=== PATIENT | female | born 1990 | race Caucasian/White ===

== ENCOUNTER → 2016-12-25 | Outpatient (CLI) | payer OTHER ==
--- NOTE | 2016-12-25 15:51 | XR ---
EXAMINATION TYPE: XR lumbosacral spine min 4V DATE OF EXAM: 12/25/2016 COMPARISON: 12/02/2011 HISTORY: 26-year-old female with low back pain TECHNIQUE: 5 views FINDINGS: 5 lumbar type vertebral bodies. No pars interarticularis defect. Vertebral body heights are preserved and alignment is maintained. Disc spaces are also relatively maintained IMPRESSION: No vertebral compression collapse or malalignment.
== END | disposition home or self-care (01) ==
LOC: RADXRMAIN 15:22
PROVIDERS: ATTEND Internal Medicine
DX: M54.5 Low back pain (principal)
CPT/HCPCS: 72110

== ENCOUNTER 2017-01-16 18:39 | Emergency (ER) | payer OTHER ==
[2017-01-16 18:47] VITALS: BP 120/61; PULSE 94; RESP 18; TEMP 97.6
[2017-01-16] MEDS ORDERED: KETOROLAC 60 MG/2 ML VIAL IM STA (18:58)
--- NOTE | 2017-01-16 19:01 | ED ---
General Adult HPI - General Chief complaint: Back Pain/Injury Stated complaint: BACK AND RT KNEE PAIN Time Seen by Provider: 01/16/17 18:48 Source: patient, RN notes reviewed Mode of arrival: ambulatory Limitations: no limitations - History of Present Illness Initial comments: Patient 26-year-old female who presents emergency room today with chief complaint of knee pain 2 days. She has been to chronic low back pain as well. States does radiate down onto the right leg. She states the pain is new started just 2 days ago. Denies any injury or trauma. States it is worse with certain movements. Patient denies any bowel or bladder incontinence retention. Denies any saddle anesthesia. Patient denies any other complaints associated symptoms. Patient denies any recent fever, chills, shortness of breath, chest pain, abdominal pain, nausea or vomiting, numbness or tingling, dysuria or hematuria, constipation or diarrhea, headaches or visual changes, or any other complaints. - Related Data Home Medications Medication Instructions Recorded Confirmed Mus-Oyeb-Dunaq Acid 1 tab PO DAILY 04/28/16 05/20/16 [-U Capsule (formulary)] Previous Rx's Medication Instructions Recorded Acetaminophen-Codeine 300-30mg 2 tab PO Q6H PRN #30 tablet 05/22/16 [Tylenol #3] Ibuprofen [Motrin] 600 mg PO Q6HR PRN #30 tab 05/22/16 Ibuprofen [Motrin] 600 mg PO Q6HR PRN #30 day 01/16/17 Allergies Allergy/AdvReac Type Severity Reaction Status Date / Time pollen extracts Allergy Unknown Verified 01/16/17 18:47 tomato Allergy Unknown Verified 01/16/17 18:47 venom-honey bee Allergy Unknown Verified 01/16/17 18:47 [bee venom (honey bee)] Review of Systems ROS Statement: Those systems with pertinent positive or pertinent negative responses have been documented in the HPI. ROS Other: All systems not noted in ROS Statement are negative. Past Medical History Past Medical History: No Reported History Additional Past Medical History / Comment(s): ovarian cyst, back pain History of Any Multi-Drug Resistant Organisms: None Reported Past Surgical History: Section Additional Past Surgical History / Comment(s): cysyts removed from ovaries Past Anesthesia/Blood Transfusion Reactions: No Reported Reaction Past Psychological History: Anxiety, Bipolar Smoking Status: Current every day smoker Past Alcohol Use History: None Reported Past Drug Use History: Marijuana - Past Family History Mother Family Medical History: No Reported History Additional Family Medical History / Comment(s): no hx of family medical problems General Exam - General Exam Comments Initial Comments: General: The patient is awake and alert, in no distress, and does not appear acutely ill. Eye: Pupils are equal, round and reactive to light, extra-ocular movements are intact. No nystagmus. There is normal conjunctiva bilaterally. No signs of icterus. Ears, nose, mouth and throat: There are moist mucous membranes and no oral lesions. Neck: The neck is supple, there is no tenderness or JVD. Cardiovascular: There is a regular rate and rhythm. No murmur, rub or gallop is appreciated. Respiratory: Lungs are clear to auscultation, respirations are non-labored, breath sounds are equal. No wheezes, stridor, rales, or rhonchi. Gastrointestinal: Soft, non-distended, non-tender abdomen without masses or organomegaly noted. There is no rebound or guarding present. No CVA tenderness. Bowel sounds are unremarkable. Musculoskeletal: Normal appearance of the right knee no obvious deformity. Shows good range of motion. No bony tenderness on exam OF the thoracic or lumbar spine no step-offs deformities or tenderness in the midline. Strength 5/ 5. Sensation intact. Pulses equal bilaterally 2+. Neurological: A&O x 3. CN II-XII intact, There are no obvious motor or sensory deficits. Coordination appears grossly intact. Speech is normal. Skin: Skin is warm and dry and no rashes or lesions are noted. Psychiatric: Cooperative, appropriate mood & affect, normal judgment. Limitations: no limitations Course Vital Signs 01/16/17 18:44 Temperature 97.6 F Pulse Rate 94 Respiratory 18 Rate Blood Pressure 120/61 O2 Sat by Pulse 100 Oximetry Medical Decision Making - Medical Decision Making Patient given Toradol shot here the emergency room advised to use anti- inflammatories for pain. Advised follow-up family doctor further evaluation Disposition Clinical Impression: Strain of knee and leg, right Disposition: HOME SELF-CARE Condition: Good Instructions: Chronic Back Pain (ED) Additional Instructions: Please use medication as discussed. Please follow-up with family doctor in the next 2 days of symptoms have not improved. Please return to emergency room if the symptoms increase or worsen or for any other concerns. Prescriptions: Ibuprofen [Motrin] 600 mg PO Q6HR PRN #30 day PRN Reason: Pain Referrals: Jaison Shah MD [Primary Care Provider] - 1-2 days Time of Disposition: 19:00
== END 2017-01-16 19:10 | disposition home or self-care (01) ==
LOC: EC 18:39
DX: S76.911A Strain of unspecified muscles, fascia and tendons at thigh level, right thigh, initial encounter (principal); F17.200 Nicotine dependence, unspecified, uncomplicated; Z79.899 Other long term (current) drug therapy; Z91.030 Bee allergy status; Z91.018 Allergy to other foods; Z91.048 Other nonmedicinal substance allergy status
CPT/HCPCS: 99283; 96372; J1885

== ENCOUNTER → 2017-02-24 | Outpatient (CLI) | payer OTHER ==
--- NOTE | 2017-02-24 12:38 | MR ---
EXAMINATION TYPE: MR lumbar spine wo con DATE OF EXAM: 02/24/2017 COMPARISON: Lumbar spine x-ray December 25, 2016. CT abdomen and pelvis July 01, 2013. HISTORY: Low back pain per order. Back pain for 7+ years per patient. Pain in legs and arms per patie nt. TECHNIQUE: Multiplanar, multisequence imaging of the lumbar spine is performed without IV contrast. FINDINGS: Sagittal images of the lumbar spine show vertebral body heights and alignment to appear sat isfactory. There is disc desiccation L3-L4 and L5-S1 levels. There is mild disc space narrowing poste riorly with posterior disc herniation L5-S1 level on sagittal images. The conus medullaris is normal in position and signal ending at inferior L1 level. The bone marrow signal intensity is within patsy l limits. No significant spurring is seen. Axial images show the T12-L1, L1-L2, and L2-L3 level to appear within normal limits. Axial images at L3-L4 and L4-L5 level show mild broad disc bulges but spinal canal is preserved and b ilateral neural foramina are patent. Axial images at L5-S1 level show broad-based left paracentral disc protrusion minimally effacing ante rior thecal sac on axial image 3 there is some encroachment on the central left S1 nerve felt present seen best on sagittal image 5 and axial image 3. Bilateral neural foramina are patent. No suspicious retroperitoneal findings are seen. IMPRESSION: Some multilevel degenerative changes in the mid to lower lumbar spine as detailed above. Most prominent findings are L5-S1 level where concentric disc herniation minimally effaces anterior t hecal sac and encroaches on Central left S1 nerve, patient however does not complain of radiculopathy type symptoms focally at this level per MRI questionnaire. Correlate clinically.
== END | disposition home or self-care (01) ==
LOC: RADMRIMAIN 11:27
PROVIDERS: ATTEND Internal Medicine
DX: M51.27 Other intervertebral disc displacement, lumbosacral region (principal); M47.816 Spondylosis without myelopathy or radiculopathy, lumbar region
CPT/HCPCS: 72148

== ENCOUNTER 2017-07-21 14:40 | Emergency (ER) | payer OTHER ==
[2017-07-21 14:47] VITALS: BP 137/70; PULSE 88; RESP 17; TEMP 97.1
--- NOTE | 2017-07-21 15:09 | ED ---
Eye Problem HPI - General Chief complaint: Eye Problems Stated complaint: eye pain Time Seen by Provider: 07/21/17 14:52 Source: patient Mode of arrival: ambulatory Limitations: no limitations - History of Present Illness Initial comments: 27-year-old female patient presents to the emergency department today with complaints of swelling and pain over her eyebrows. Patient states that this started 3-4 days ago. States that she was seen at urgent care and given a prescription for Keflex. Patient states that her symptoms are not improving. States that it started in the left eyebrow and is now moving over to the right. Patient denies any eye drainage, eye redness, or eye irritation. She denies any headache, dizziness, weakness, blurred vision, or double vision. States that the area is tender to the touch. States she has been taking Tylenol and Excedrin without pain relief. She denies any fever, chills, or rash with this. Patient denies any recent shortness breath, chest pain, abdominal pain, nausea, vomiting, diarrhea, constipation, back pain, numbness, tingling, dizziness, weakness, hematuria, dysuria, urinary urgency, urinary frequency, or any other complaints. - Related Data Home Medications Medication Instructions Recorded Confirmed Cnb-Yhoz-Qqvkv Acid 1 tab PO DAILY 04/28/16 05/20/16 [-U Capsule (formulary)] Previous Rx's Medication Instructions Recorded Acetaminophen-Codeine 300-30mg 2 tab PO Q6H PRN #30 tablet 05/22/16 [Tylenol #3] Ibuprofen [Motrin] 600 mg PO Q6HR PRN #30 tab 05/22/16 Ibuprofen [Motrin] 600 mg PO Q6HR PRN #30 day 01/16/17 Allergies Allergy/AdvReac Type Severity Reaction Status Date / Time pollen extracts Allergy Unknown Verified 07/21/17 14:44 tomato Allergy Unknown Verified 07/21/17 14:44 venom-honey bee Allergy Unknown Verified 07/21/17 14:44 [bee venom (honey bee)] Review of Systems ROS Statement: Those systems with pertinent positive or pertinent negative responses have been documented in the HPI. ROS Other: All systems not noted in ROS Statement are negative. Past Medical History Past Medical History: No Reported History Additional Past Medical History / Comment(s): ovarian cyst, back pain History of Any Multi-Drug Resistant Organisms: None Reported Past Surgical History: Section Additional Past Surgical History / Comment(s): cysyts removed from ovaries Past Anesthesia/Blood Transfusion Reactions: No Reported Reaction Past Psychological History: Anxiety, Bipolar Smoking Status: Current every day smoker Past Alcohol Use History: None Reported Past Drug Use History: Marijuana - Past Family History Mother Family Medical History: No Reported History Additional Family Medical History / Comment(s): no hx of family medical problems General Exam Limitations: no limitations General appearance: alert, in no apparent distress, other (This is a well- developed, well-nourished adult female patient in no acute distress. Vital signs upon presentation are temperature 97.1F, pulse 88, respirations 17, blood pressure 137/70, pulse ox 98% on room air.) Eye exam: Present: normal appearance, PERRL, EOMI, other (Tenderness over the left eyebrow, over the glabella, and the right eyebrow. No evidence of swelling , erythema, or rash. Globes are intact, no drainage, no injection, PERRLA.). Absent: scleral icterus, conjunctival injection, periorbital swelling ENT exam: Present: normal exam, normal oropharynx, mucous membranes moist Respiratory exam: Present: normal lung sounds bilaterally. Absent: respiratory distress, wheezes, rales, rhonchi, stridor Cardiovascular Exam: Present: regular rate, normal rhythm, normal heart sounds. Absent: systolic murmur, diastolic murmur, rubs, gallop, clicks Neurological exam: Present: alert, oriented X3, CN II-XII intact Psychiatric exam: Present: normal affect, normal mood Skin exam: Present: warm, dry, intact, normal color. Absent: rash Course Vital Signs 07/21/17 14:44 Temperature 97.1 F L Pulse Rate 88 Respiratory 17 Rate Blood Pressure 137/70 O2 Sat by Pulse 98 Oximetry Medical Decision Making - Medical Decision Making 27-year-old female patient presented to the emergency department today for evaluation of pain to her bilateral eyebrows and glabella. Physical exam is unremarkable. Patient does not have any evidence of erythema, swelling, or rash over the area. She is not febrile. She is neurologically intact with no headache and no visual disturbance. At this time patient will be discharged home to follow-up with her primary care physician to continue taking her Keflex. I did recommend she follow up with ENT. She is instructed to take Tylenol Motrin for pain control. She is instructed to return here immediately for any new, worsening, or concerning symptoms. She verbalizes understanding. Disposition Clinical Impression: Atypical facial pain Disposition: HOME SELF-CARE Condition: Good Instructions: Atypical Facial Pain (ED) Additional Instructions: Continue taking Tylenol and ibuprofen for pain control. Apply warm compresses to the painful area. Continue your antibiotics. Follow-up with [facility] throat specialty for further evaluation. Return here immediately for any new, worsening, or concerning symptoms. Referrals: Jaison Shah MD [Primary Care Provider] - 1-2 days Darrell Peters DO [Doctor of Osteopathic Medicine] - 1-2 days Time of Disposition: 15:09
== END 2017-07-21 15:17 | disposition home or self-care (01) ==
LOC: EC 14:40
DX: G50.1 Atypical facial pain (principal); F17.200 Nicotine dependence, unspecified, uncomplicated; Z91.030 Bee allergy status; Z91.018 Allergy to other foods; Z91.048 Other nonmedicinal substance allergy status
CPT/HCPCS: 99283

== ENCOUNTER 2018-05-15 22:18 | Emergency (ER) | payer OTHER ==
[2018-05-16] MEDS ORDERED: methylPREDNISolone SOD SUCCI 125 MG/2 ML VIAL IM ONE (00:31)
[2018-05-16] MEDS ORDERED: IPRATROPIUM-ALBUTEROL 3 ML NEB INHALATION STA (00:31)
--- NOTE | 2018-05-16 00:34 | XR ---
EXAMINATION TYPE: XR chest 2V DATE OF EXAM: 05/16/2018 COMPARISON: July 25, 2013 HISTORY: Pain TECHNIQUE: Frontal and lateral views of the chest are obtained. FINDINGS: Heart and mediastinum are normal. Lungs are clear. Diaphragm is normal. Bony thorax appear s normal. IMPRESSION: Normal chest. No change.
--- NOTE | 2018-05-16 01:13 | ED ---
General Adult HPI - General Chief complaint: Upper Respiratory Infection Stated complaint: STEWART Time Seen by Provider: 05/15/18 23:55 Source: patient, RN notes reviewed Mode of arrival: ambulatory Limitations: no limitations - History of Present Illness Initial comments: 28-year-old female presents to the emergency department for a chief complaint of cough and wheezing times one day. Patient states this started yesterday when she developed a mild cough. Patient states she has a history of asthma. Patient does not have a nebulizer at home at this time. She has not been on any steroids. She does admit to mild shortness of breath. She denies any significant chest pain but does state it is somewhat painful when she coughs. She denies any fevers or chills.Patient has no other complaints at this time including chest pain, abdominal pain, nausea or vomiting, headache, or visual changes. - Related Data Home Medications Medication Instructions Recorded Confirmed Multivitamins, Thera [Multivitamin 1 tab PO DAILY 05/15/18 05/15/18 (formulary)] Previous Rx's Medication Instructions Recorded Albuterol Inhaler [Ventolin Hfa 1 - 2 puff INHALATION Q6HR PRN #1 05/16/18 Inhaler] inhaler predniSONE 50 mg PO DAILY #5 tablet 05/16/18 Allergies Allergy/AdvReac Type Severity Reaction Status Date / Time pollen extracts Allergy Unknown Verified 05/15/18 22:48 tomato Allergy Unknown Verified 05/15/18 22:48 venom-honey bee Allergy Unknown Verified 05/15/18 22:48 [bee venom (honey bee)] Review of Systems ROS Statement: Those systems with pertinent positive or pertinent negative responses have been documented in the HPI. ROS Other: All systems not noted in ROS Statement are negative. Past Medical History Past Medical History: No Reported History Additional Past Medical History / Comment(s): ovarian cyst, back pain History of Any Multi-Drug Resistant Organisms: None Reported Past Surgical History: Section Additional Past Surgical History / Comment(s): cysyts removed from ovaries Past Anesthesia/Blood Transfusion Reactions: No Reported Reaction Past Psychological History: Anxiety, Bipolar Smoking Status: Current every day smoker Past Alcohol Use History: None Reported Past Drug Use History: Marijuana - Past Family History Mother Family Medical History: No Reported History Additional Family Medical History / Comment(s): no hx of family medical problems General Exam Limitations: no limitations General appearance: alert, in no apparent distress Head exam: Present: atraumatic, normocephalic, normal inspection Eye exam: Present: normal appearance, PERRL, EOMI. Absent: scleral icterus, conjunctival injection, periorbital swelling ENT exam: Present: normal exam, normal oropharynx, mucous membranes moist, TM's normal bilaterally, normal external ear exam Neck exam: Present: normal inspection, full ROM. Absent: tenderness, meningismus, lymphadenopathy Respiratory exam: Present: wheezes (Significant wheezing noted in all lung sheridan). Absent: respiratory distress, rales, rhonchi, stridor Cardiovascular Exam: Present: regular rate, normal rhythm, normal heart sounds. Absent: systolic murmur, diastolic murmur, rubs, gallop, clicks GI/Abdominal exam: Present: soft, normal bowel sounds. Absent: distended, tenderness, guarding, rebound, rigid Neurological exam: Present: alert, oriented X3, CN II-XII intact Psychiatric exam: Present: normal affect, normal mood Course Vital Signs 05/15/18 05/15/18 05/16/18 22:20 23:15 00:00 Temperature 98.4 F 98.6 F Pulse Rate 99 92 90 Respiratory 20 22 22 Rate Blood Pressure 117/71 110/57 110/57 O2 Sat by Pulse 98 96 94 L Oximetry 05/16/18 05/16/18 05/16/18 01:00 01:09 01:26 Temperature Pulse Rate 82 92 96 Respiratory 20 Rate Blood Pressure 115/65 O2 Sat by Pulse 96 Oximetry Medical Decision Making - Medical Decision Making 28-year-old female with a past medical history of asthma presents for chief complaint of cough and wheezing. Patient states she has mild pain in the chest with coughing, otherwise no pain. Patient has not been using breathing treatments or steroids as she does not have a breathing treatment machine at home. Patient lost her inhaler as well. Vitals are acceptable, pulse ox 98% on room air. Patient is afebrile, low suspicion for influenza. On exam patient is sleeping initially. She was easily aroused. She does not appear in distress and is not having any respiratory distress. She does have significant wheezing noted. 6 mL DuoNeb was ordered. Patient was reevaluated and the wheezing did improve significantly. Chest x-ray was negative for any acute process. Patient was also given IM dose of Solu-Medrol. On additional reevaluation, patient states she is feeling much better. Patient states she feels comfortable going home. Patient will be given albuterol inhaler and steroids. She will return if she has any worsening symptoms. Disposition Clinical Impression: Asthma Disposition: HOME SELF-CARE Condition: Good Instructions: Asthma (ED), Upper Respiratory Infection (ED) Additional Instructions: Please take steroid as directed. Please use albuterol inhaler as directed. Follow-up with primary care in 1-2 days. Return to the emergency department if you have any worsening symptoms Prescriptions: Albuterol Inhaler [Ventolin Hfa Inhaler] 1 - 2 puff INHALATION Q6HR PRN #1 inhaler PRN Reason: Shortness Of Breath predniSONE 50 mg PO DAILY #5 tablet Is patient prescribed a controlled substance at d/c from ED?: No Referrals: Jaison Shah MD [Primary Care Provider] - 1-2 days Time of Disposition: 01:56
[2018-05-16 02:22] VITALS: BP 132/86; PULSE 86; RESP 16; TEMP 97.8
== END 2018-05-16 02:22 | disposition home or self-care (01) ==
LOC: EC 22:18
DX: J45.909 Unspecified asthma, uncomplicated (principal); F17.200 Nicotine dependence, unspecified, uncomplicated; Z91.018 Allergy to other foods; Z91.030 Bee allergy status
CPT/HCPCS: 94640; 71046; 99285; 96372; J2930

== ENCOUNTER 2018-08-09 23:15 | Emergency (ER) | payer OTHER ==
[2018-08-09 23:33] VITALS: RESP 18
[2018-08-10] MEDS ORDERED: KETOROLAC 30 MG/ML 1 ML VIAL IVP STA (00:31)
[2018-08-10 00:33] LABS: Appearance,Urine Turbid (Clear); Bacteria,Urine Many /hpf; Bilirubin,Urine Negative (Negative); Blood,Urine Large (Negative); Color,Urine Light Red; Glucose,Urine (UA) Negative (Negative); Ketones,Urine Negative (Negative); Leukocyte Esterase,Urine Large (Negative); Mucus,Urine Many /hpf; Nitrite,Urine Positive (Negative); Protein,Urine 2+ (Negative); RBC,Urine 9 /hpf (0-5); Specific Gravity,Urine 1.022 (1.001-1.035); Squamous Epithelial Cell,Urine 14 /hpf (0-4); WBC,Urine >182 /hpf (0-5)
[2018-08-10 00:34] LABS: Anion Gap 8 mmol/L; Calcium 8.5 mg/dL (8.4-10.2); Carbon Dioxide 25 mmol/L (22-30); Chloride 105 mmol/L (98-107); Glucose 89 mg/dL (74-99); Sodium 138 mmol/L (137-145)
[2018-08-10 00:39] LABS: Blood Urea Nitrogen 9 mg/dL (7-17); Potassium 4.2 mmol/L (3.5-5.1)
[2018-08-10] MEDS ORDERED: LEVOFLOXACIN 750 MG TAB PO STA (00:42)
--- NOTE | 2018-08-10 00:46 | ED ---
Abdominal Pain HPI - General Chief Complaint: Abdominal Pain Stated Complaint: Abdominal Pain Time Seen by Provider: 08/09/18 23:59 Source: patient Mode of arrival: ambulatory Limitations: no limitations - History of Present Illness MD Complaint: abdominal pain Onset/Timin -: hour(s) Location: suprapubic Radiation: none Severity: moderate Quality: cramping Consistency: constant Improves With: nothing Worsens With: nothing Associated Symptoms: denies other symptoms - Related Data Home Medications Medication Instructions Recorded Confirmed Multivitamins, Thera [Multivitamin 1 tab PO DAILY 05/15/18 05/15/18 (formulary)] Previous Rx's Medication Instructions Recorded Albuterol Inhaler [Ventolin Hfa 1 - 2 puff INHALATION Q6HR PRN #1 05/16/18 Inhaler] inhaler predniSONE 50 mg PO DAILY #5 tablet 05/16/18 Ciprofloxacin HCl [Cipro] 500 mg PO Q12HR #14 tablet 08/10/18 Allergies Allergy/AdvReac Type Severity Reaction Status Date / Time pollen extracts Allergy Unknown Verified 08/09/18 23:33 tomato Allergy Unknown Verified 08/09/18 23:33 venom-honey bee Allergy Unknown Verified 08/09/18 23:33 [bee venom (honey bee)] Review of Systems ROS Statement: Those systems with pertinent positive or pertinent negative responses have been documented in the HPI. ROS Other: All systems not noted in ROS Statement are negative. Constitutional: Denies: fever, chills Respiratory: Denies: cough, dyspnea Cardiovascular: Denies: chest pain, palpitations, edema Gastrointestinal: Reports: abdominal pain. Denies: nausea, vomiting, diarrhea, constipation Genitourinary: Reports: abnormal menses. Denies: dysuria, frequency, hematuria, discharge Musculoskeletal: Denies: back pain Skin: Denies: rash Neurological: Denies: headache, weakness, numbness Past Medical History Past Medical History: No Reported History Additional Past Medical History / Comment(s): ovarian cyst, back pain History of Any Multi-Drug Resistant Organisms: None Reported Past Surgical History: Section Additional Past Surgical History / Comment(s): cysyts removed from ovaries Past Anesthesia/Blood Transfusion Reactions: No Reported Reaction Past Psychological History: Anxiety, Bipolar Smoking Status: Current every day smoker Past Alcohol Use History: None Reported Past Drug Use History: Marijuana - Past Family History Mother Family Medical History: No Reported History Additional Family Medical History / Comment(s): no hx of family medical problems General Exam Limitations: no limitations General appearance: alert, in no apparent distress Head exam: Present: atraumatic, normocephalic Eye exam: Present: normal appearance. Absent: scleral icterus, conjunctival injection Respiratory exam: Present: normal lung sounds bilaterally. Absent: respiratory distress, wheezes, rales, rhonchi, stridor Cardiovascular Exam: Present: regular rate, normal rhythm, normal heart sounds. Absent: systolic murmur, diastolic murmur, rubs, gallop GI/Abdominal exam: Present: soft, tenderness (Suprapubic). Absent: distended, guarding, rebound, rigid, mass Extremities exam: Present: normal inspection, normal capillary refill. Absent: pedal edema, calf tenderness Back exam: Present: normal inspection. Absent: CVA tenderness (R), CVA tenderness (L) Neurological exam: Present: alert Skin exam: Present: warm, dry, intact, normal color. Absent: rash Course Vital Signs 08/09/18 23:31 Temperature 98.7 F Pulse Rate 105 H Respiratory 18 Rate Blood Pressure 114/63 O2 Sat by Pulse 98 Oximetry Medical Decision Making - Medical Decision Making Patient is 28-year-old woman with low abdominal cramping type pain. She states started this morning after she had woken up. She denies any associated symptoms other then having some spotting vaginal bleeding. She states that her normal period was less than 2 weeks ago. She denies any chance of stating she has not had intercourse in proximally 6 months. - Lab Data Result diagrams: 08/10/18 00:35 08/10/18 00:00 Lab Results 08/10/18 08/10/18 08/10/18 Range/Units 00:00 00:00 00:00 WBC (3.8-10.6) k/uL RBC (3.80-5.40) m/uL Hgb (11.4-16.0) gm/dL Hct (34.0-46.0) % MCV (80.0-100.0) fL MCH (25.0-35.0) pg MCHC (31.0-37.0) g/dL RDW (11.5-15.5) % Plt Count (150-450) k/uL Neutrophils % % Lymphocytes % % Monocytes % % Eosinophils % % Basophils % % Neutrophils # (1.3-7.7) k/uL Lymphocytes # (1.0-4.8) k/uL Monocytes # (0-1.0) k/uL Eosinophils # (0-0.7) k/uL Basophils # (0-0.2) k/uL Sodium 138 (137-145) mmol/L Potassium 4.2 (3.5-5.1) mmol/L Chloride 105 (98-107) mmol/L Carbon Dioxide 25 (22-30) mmol/L Anion Gap 8 mmol/L BUN 9 (7-17) mg/dL Creatinine 0.68 (0.52-1.04) mg/dL Est GFR (CKD-EPI)AfAm >90 (>60 ml/min/1.73 sqM) Est GFR (CKD-EPI)NonAf >90 (>60 ml/min/1.73 sqM) Glucose 89 (74-99) mg/dL Calcium 8.5 (8.4-10.2) mg/dL Urine Color Light Red Urine Appearance Turbid H (Clear) Urine pH 6.0 (5.0-8.0) Ur Specific [place] 1.022 (1.001-1.035) Urine Protein 2+ H (Negative) Urine Glucose (UA) Negative (Negative) Urine Ketones Negative (Negative) Urine Blood Large H (Negative) Urine Nitrite Positive H (Negative) Urine Bilirubin Negative (Negative) Urine Urobilinogen 6.0 (<2.0) mg/dL Ur Leukocyte Esterase Large H (Negative) Urine RBC 9 H (0-5) /hpf Urine WBC >182 H (0-5) /hpf Urine WBC Clumps Many H (None) /hpf Ur Squamous Epith Cells 14 H (0-4) /hpf Urine Bacteria Many H (None) /hpf Urine Mucus Many H (None) /hpf Urine HCG, Qual Not Detected (Not Detectd) 08/10/18 Range/Units 00:35 WBC 11.5 H (3.8-10.6) k/uL RBC 4.78 (3.80-5.40) m/uL Hgb 13.5 (11.4-16.0) gm/dL Hct 43.5 (34.0-46.0) % MCV 91.1 (80.0-100.0) fL MCH 28.3 (25.0-35.0) pg MCHC 31.1 (31.0-37.0) g/dL RDW 15.0 (11.5-15.5) % Plt Count 266 (150-450) k/uL Neutrophils % 75 % Lymphocytes % 16 % Monocytes % 5 % Eosinophils % 3 % Basophils % 0 % Neutrophils # 8.6 H (1.3-7.7) k/uL Lymphocytes # 1.8 (1.0-4.8) k/uL Monocytes # 0.6 (0-1.0) k/uL Eosinophils # 0.3 (0-0.7) k/uL Basophils # 0.1 (0-0.2) k/uL Sodium (137-145) mmol/L Potassium (3.5-5.1) mmol/L Chloride (98-107) mmol/L Carbon Dioxide (22-30) mmol/L Anion Gap mmol/L BUN (7-17) mg/dL Creatinine (0.52-1.04) mg/dL Est GFR (CKD-EPI)AfAm (>60 ml/min/1.73 sqM) Est GFR (CKD-EPI)NonAf (>60 ml/min/1.73 sqM) Glucose (74-99) mg/dL Calcium (8.4-10.2) mg/dL Urine Color Urine Appearance (Clear) Urine pH (5.0-8.0) Ur Specific [place] (1.001-1.035) Urine Protein (Negative) Urine Glucose (UA) (Negative) Urine Ketones (Negative) Urine Blood (Negative) Urine Nitrite (Negative) Urine Bilirubin (Negative) Urine Urobilinogen (<2.0) mg/dL Ur Leukocyte Esterase (Negative) Urine RBC (0-5) /hpf Urine WBC (0-5) /hpf Urine WBC Clumps (None) /hpf Ur Squamous Epith Cells (0-4) /hpf Urine Bacteria (None) /hpf Urine Mucus (None) /hpf Urine HCG, Qual (Not Detectd) Disposition Clinical Impression: Urinary tract infection Disposition: HOME SELF-CARE Condition: Good Instructions (If sedation given, give patient instructions): Urinary Tract Infection in Women (ED) Prescriptions: Ciprofloxacin HCl [Cipro] 500 mg PO Q12HR #14 tablet Is patient prescribed a controlled substance at d/c from ED?: No Referrals: Jaison Shah MD [Primary Care Provider] - 1-2 days
[2018-08-10 01:09] LABS: Basophils # (A) 0.1 k/uL (0-0.2); Basophils % (A) 0 %; Eosinophils # (A) 0.3 k/uL (0-0.7); Eosinophils % (A) 3 %; HCT 43.5 % (34.0-46.0); HGB 13.5 gm/dL (11.4-16.0); Lymphocytes # (A) 1.8 k/uL (1.0-4.8); Lymphocytes % (A) 16 %; MCH 28.3 pg (25.0-35.0); MCHC 31.1 g/dL (31.0-37.0); MCV 91.1 fL (80.0-100.0); Mean Platelet Volume 6.8; Monocytes # (A) 0.6 k/uL (0-1.0); Monocytes % (A) 5 %; Neutrophils # (A) 8.6 k/uL (1.3-7.7); Neutrophils % (A) 75 %; Platelet Count 266 k/uL (150-450); RBC 4.78 m/uL (3.80-5.40); WBC 11.5 k/uL (3.8-10.6)
[2018-08-10 02:36] VITALS: BP 124/72; PULSE 91; TEMP 98.1
== END 2018-08-10 02:36 | disposition home or self-care (01) ==
LOC: EC 23:15
DX: N39.0 Urinary tract infection, site not specified (principal); F17.200 Nicotine dependence, unspecified, uncomplicated; Z87.42 Personal history of other diseases of the female genital tract; Z98.890 Other specified postprocedural states; Z91.048 Other nonmedicinal substance allergy status; Z91.018 Allergy to other foods; Z91.030 Bee allergy status
CPT/HCPCS: 36415; 80048; 85025; 81001; 81025; 99284; 96374; J1885

== ENCOUNTER 2018-08-30 18:53 | Emergency (ER) | payer OTHER ==
[2018-08-30 19:05] VITALS: RESP 18
[2018-08-30] MEDS ORDERED: KETOROLAC 30 MG/ML 1 ML VIAL IVP STA (19:36)
[2018-08-30] MEDS ORDERED: SODIUM CHLORIDE 0.9% 1,000 ML IV STA (19:36)
--- NOTE | 2018-08-30 19:57 | ED ---
Abdominal Pain HPI - General Chief Complaint: Abdominal Pain Stated Complaint: Abd pain Time Seen by Provider: 08/30/18 19:09 Source: patient Mode of arrival: ambulatory Limitations: no limitations - History of Present Illness Initial Comments: 28-year-old female patient presents to the emergency department today for evaluation of lower abdominal pain and cramping. Patient is also reporting abnormal vaginal bleeding. Patient states that her period started on July 24 and last approximately 3-4 days. Patient states that she had 2 additional episodes of bleeding throughout the month the last 3-4 days in length. Patient states yesterday she started to have dark brown vaginal bleeding. Patient states that the bleeding increased today and she developed pain to the lower abdomen. She denies any radiation of the pain to her back. Patient denies any chance of . Denies any concern for sexually transmitted infections. Patient denies history of similar symptoms or abnormal bleeding. Patient denies any use of new control or hormonal medications. Denies any fever or chills with this. States she does have a history of ovarian cyst for which she's had to have surgery for removal. Patient denies any recent rash, shortness breath, chest pain, nausea, vomiting, diarrhea, constipation, back pain, numbness, tingling, dizziness, weakness, hematuria, dysuria, urinary urgency, urinary frequency, headache, visual changes, or any other complaints. - Related Data Home Medications Medication Instructions Recorded Confirmed No Known Home Medications 08/30/18 08/30/18 Allergies Allergy/AdvReac Type Severity Reaction Status Date / Time pollen extracts Allergy Unknown Verified 08/30/18 19:38 tomato Allergy Unknown Verified 08/30/18 19:38 venom-honey bee Allergy Unknown Verified 08/30/18 19:38 [bee venom (honey bee)] Review of Systems ROS Statement: Those systems with pertinent positive or pertinent negative responses have been documented in the HPI. ROS Other: All systems not noted in ROS Statement are negative. Past Medical History Past Medical History: No Reported History Additional Past Medical History / Comment(s): ovarian cyst, back pain History of Any Multi-Drug Resistant Organisms: None Reported Past Surgical History: Section Additional Past Surgical History / Comment(s): cysyts removed from ovaries Past Anesthesia/Blood Transfusion Reactions: No Reported Reaction Past Psychological History: Anxiety, Bipolar Smoking Status: Current every day smoker Past Alcohol Use History: None Reported Past Drug Use History: Marijuana - Past Family History Mother Family Medical History: No Reported History Additional Family Medical History / Comment(s): no hx of family medical problems General Exam Limitations: no limitations General appearance: alert, in no apparent distress, other (Physical well- developed, well-nourished adult female patient in no acute distress. Vital signs upon presentation are temperature 98.6F, pulse 104, respirations 18, blood pressure 121/79, pulse ox 99% on room air.) Respiratory exam: Present: normal lung sounds bilaterally. Absent: respiratory distress, wheezes, rales, rhonchi, stridor Cardiovascular Exam: Present: regular rate, normal rhythm, normal heart sounds. Absent: systolic murmur, diastolic murmur, rubs, gallop, clicks GI/Abdominal exam: Present: soft, normal bowel sounds. Absent: distended, tenderness, guarding, rebound, rigid External exam: Present: normal external exam Speculum exam: Present: vaginal bleeding (Dark brown vaginal bleeding, noted to the cervical os) By manual exam: Present: normal by manual exam Neurological exam: Present: alert, oriented X3, CN II-XII intact Psychiatric exam: Present: normal affect, normal mood Skin exam: Present: warm, dry, intact, normal color. Absent: rash Course Vital Signs 08/30/18 08/30/18 19:03 22:27 Temperature 98.6 F 97.9 F Pulse Rate 104 H 75 Respiratory 18 18 Rate Blood Pressure 121/79 100/60 O2 Sat by Pulse 99 98 Oximetry Medical Decision Making - Medical Decision Making 28-year-old female patient presents to the emergency department today for evaluation of lower abdominal pain and abnormal vaginal bleeding. Physical examination does reveal lower abdominal tenderness especially over the suprapubic region. Pelvic exam was performed and did reveal dark brown vaginal bleeding noted from the cervical os. No cervical motion or adnexal tenderness. Patient does have history of ovarian cysts or did perform transvaginal ultrasound shows no acute abnormalities. Patient's labs reviewed and did reveal elevated white blood cell count at 16. She is afebrile, vital signs are stable. I did discuss findings and results with the patient. Did offer computed tomography scan given her elevated white blood cell count. Patient would prefer to be discharged home at this time to follow-up with her primary care physician. We did discuss return parameters in detail. We did discuss risk of appendicitis or other infection, she verbalizes understanding and requested to be discharged. She'll be instructed to follow-up in one to 2 days with her primary care physician. She verbalizes understanding and agrees this plan. - Lab Data Result diagrams: 08/30/18 20:04 08/30/18 20:04 Lab Results 08/30/18 08/30/18 08/30/18 Range/Units 20:01 20:01 20:04 WBC (3.8-10.6) k/uL RBC (3.80-5.40) m/uL Hgb (11.4-16.0) gm/dL Hct (34.0-46.0) % MCV (80.0-100.0) fL MCH (25.0-35.0) pg MCHC (31.0-37.0) g/dL RDW (11.5-15.5) % Plt Count (150-450) k/uL Neutrophils % % Lymphocytes % % Monocytes % % Eosinophils % % Basophils % % Neutrophils # (1.3-7.7) k/uL Lymphocytes # (1.0-4.8) k/uL Monocytes # (0-1.0) k/uL Eosinophils # (0-0.7) k/uL Basophils # (0-0.2) k/uL Anisocytosis Sodium 138 (137-145) mmol/L Potassium 4.2 (3.5-5.1) mmol/L Chloride 108 H (98-107) mmol/L Carbon Dioxide 24 (22-30) mmol/L Anion Gap 6 mmol/L BUN 9 (7-17) mg/dL Creatinine 0.69 (0.52-1.04) mg/dL Est GFR (CKD-EPI)AfAm >90 (>60 ml/min/1.73 sqM) Est GFR (CKD-EPI)NonAf >90 (>60 ml/min/1.73 sqM) Glucose 91 (74-99) mg/dL Calcium 9.0 (8.4-10.2) mg/dL Total Bilirubin 0.6 (0.2-1.3) mg/dL AST 22 (14-36) U/L ALT 25 (9-52) U/L Alkaline Phosphatase 66 (38-126) U/L Total Protein 6.6 (6.3-8.2) g/dL Albumin 3.7 (3.5-5.0) g/dL Amylase 40 (30-110) U/L Lipase 38 (23-300) U/L Urine Color Yellow Urine Appearance Clear (Clear) Urine pH 6.5 (5.0-8.0) Ur Specific [employer] 1.014 (1.001-1.035) Urine Protein Trace H (Negative) Urine Glucose (UA) Negative (Negative) Urine Ketones Negative (Negative) Urine Blood Negative (Negative) Urine Nitrite Negative (Negative) Urine Bilirubin Negative (Negative) Urine Urobilinogen <2.0 (<2.0) mg/dL Ur Leukocyte Esterase Negative (Negative) Urine HCG, Qual Not Detected (Not Detectd) Trichomonas Ag (Rapid) (Negative) 08/30/18 08/30/18 Range/Units 20:04 20:39 WBC 16.0 H (3.8-10.6) k/uL RBC 4.43 (3.80-5.40) m/uL Hgb 12.7 (11.4-16.0) gm/dL Hct 37.8 (34.0-46.0) % MCV 85.3 D (80.0-100.0) fL MCH 28.6 (25.0-35.0) pg MCHC 33.6 (31.0-37.0) g/dL RDW 17.4 H (11.5-15.5) % Plt Count 383 (150-450) k/uL Neutrophils % 71 % Lymphocytes % 15 % Monocytes % 7 % Eosinophils % 5 % Basophils % 0 % Neutrophils # 11.4 H (1.3-7.7) k/uL Lymphocytes # 2.5 (1.0-4.8) k/uL Monocytes # 1.1 H (0-1.0) k/uL Eosinophils # 0.9 H (0-0.7) k/uL Basophils # 0.1 (0-0.2) k/uL Anisocytosis Slight Sodium (137-145) mmol/L Potassium (3.5-5.1) mmol/L Chloride (98-107) mmol/L Carbon Dioxide (22-30) mmol/L Anion Gap mmol/L BUN (7-17) mg/dL Creatinine (0.52-1.04) mg/dL Est GFR (CKD-EPI)AfAm (>60 ml/min/1.73 sqM) Est GFR (CKD-EPI)NonAf (>60 ml/min/1.73 sqM) Glucose (74-99) mg/dL Calcium (8.4-10.2) mg/dL Total Bilirubin (0.2-1.3) mg/dL AST (14-36) U/L ALT (9-52) U/L Alkaline Phosphatase (38-126) U/L Total Protein (6.3-8.2) g/dL Albumin (3.5-5.0) g/dL Amylase (30-110) U/L Lipase (23-300) U/L Urine Color Urine Appearance (Clear) Urine pH (5.0-8.0) Ur Specific [employer] (1.001-1.035) Urine Protein (Negative) Urine Glucose (UA) (Negative) Urine Ketones (Negative) Urine Blood (Negative) Urine Nitrite (Negative) Urine Bilirubin (Negative) Urine Urobilinogen (<2.0) mg/dL Ur Leukocyte Esterase (Negative) Urine HCG, Qual (Not Detectd) Trichomonas Ag (Rapid) Negative (Negative) - Radiology Data Radiology results: report reviewed, image reviewed Transvaginal ultrasound of the pelvis was obtained. Report was reviewed in its entirety. Impression by Dr. Jolly shows no significant abnormalities evident in the pelvis. Disposition Clinical Impression: Abdominal pain, Dysfunctional uterine bleeding Disposition: HOME SELF-CARE Condition: Good Instructions (If sedation given, give patient instructions): Dysfunctional Uterine Bleeding (ED), Abdominal Pain (ED) Additional Instructions: Follow up with your primary care physician for recheck in 1-2 days. Follow-up with your MEDICAL OFFICE COORDINATOR to discuss abnormal vaginal bleeding. Return to the emergency department for any new, worsening, or concerning symptoms. Is patient prescribed a controlled substance at d/c from ED?: No Referrals: Jaison Shah MD [Primary Care Provider] - 1-2 days Time of Disposition: 22:02
[2018-08-30 20:12] LABS: Anisocytosis Slight; Basophils # (A) 0.1 k/uL (0-0.2); Basophils % (A) 0 %; Eosinophils # (A) 0.9 k/uL (0-0.7); Eosinophils % (A) 5 %; HCT 37.8 % (34.0-46.0); HGB 12.7 gm/dL (11.4-16.0); Lymphocytes # (A) 2.5 k/uL (1.0-4.8); Lymphocytes % (A) 15 %; MCH 28.6 pg (25.0-35.0); MCHC 33.6 g/dL (31.0-37.0); Monocytes # (A) 1.1 k/uL (0-1.0); Monocytes % (A) 7 %; Neutrophils # (A) 11.4 k/uL (1.3-7.7); Neutrophils % (A) 71 %; Platelet Count 383 k/uL (150-450); RBC 4.43 m/uL (3.80-5.40); RDW 17.4 % (11.5-15.5)
[2018-08-30 20:23] LABS: ALT 25 U/L (9-52); AST 22 U/L (14-36); Albumin 3.7 g/dL (3.5-5.0); Alkaline Phosphatase 66 U/L (38-126); Amylase 40 U/L (30-110); Anion Gap 6 mmol/L; Blood Urea Nitrogen 9 mg/dL (7-17); Carbon Dioxide 24 mmol/L (22-30); Chloride 108 mmol/L (98-107); Glucose 91 mg/dL (74-99); Lipase 38 U/L (23-300); Sodium 138 mmol/L (137-145); Total Bilirubin 0.6 mg/dL (0.2-1.3); Total Protein 6.6 g/dL (6.3-8.2)
[2018-08-30 20:26] LABS: Appearance,Urine Clear (Clear); Bilirubin,Urine Negative (Negative); Blood,Urine Negative (Negative); Color,Urine Yellow; Glucose,Urine (UA) Negative (Negative); Ketones,Urine Negative (Negative); Leukocyte Esterase,Urine Negative (Negative); Nitrite,Urine Negative (Negative); PH, Urine 6.5 (5.0-8.0); Protein,Urine Trace (Negative); Specific Gravity,Urine 1.014 (1.001-1.035); Urobilinogen,Urine <2.0 mg/dL (<2.0)
[2018-08-30 20:26] LABS: MCV 85.3 fL (80.0-100.0)
[2018-08-30 20:27] LABS: Potassium 4.2 mmol/L (3.5-5.1)
--- NOTE | 2018-08-30 20:46 | XR ---
Abdomen HISTORY: Pain Frontal view the abdomen on 2 images correlated prior exam 01/23/2014 Lung bases are clear. There is no evident bowel obstruction or pneumoperitoneum. Bone mineralization is normal. IMPRESSION: No acute abnormality.
--- NOTE | 2018-08-30 21:36 | US ---
EXAMINATION TYPE: US transvaginal DATE OF EXAM: 08/30/2018 COMPARISON: Previous exam dated 07/22/2015 CLINICAL HISTORY: Pain. patient kept falling asleep during questioning, pelvic pain, multiple cycles this past month TECHNIQUE: TV/TA. Transabdominal sonographic images of the pelvis were acquired to evaluate the lef t ovary. Transvaginal sonographic images performed. Date of LMP: 3 cycles this past month EXAM MEASUREMENTS: Uterus: 8.8 x 4.2 x 3.6 cm Endometrial Stripe: 0.9 cm Right Ovary: 2.7 x 2.3 x 1.9 cm Left Ovary: 2.8 x 2.6 x 1.5 cm 1. Uterus: Anteverted wnl 2. Endometrium: wnl 3. Right Ovary: wnl 4. Left Ovary: only seen transabdominally, wnl Spectral, color and waveform doppler imaging shows arterial and venous flow within the ovaries 5. Bilateral Adnexa: wnl 6. Posterior cul-de-sac: wnl IMPRESSION: No significant abnormalities evident
[2018-08-30 22:28] VITALS: BP 100/60; PULSE 75; TEMP 97.9
[2018-08-31 14:55] LABS: N. gonorrhoeae,PCR Negative (Neg,Equiv); Neisseria Source Vagina
[2018-08-31 14:57] LABS: C. trachomatis,PCR Negative (Neg,Equiv); Chlamydia trachomatis Source Vagina
== END 2018-08-30 22:28 | disposition home or self-care (01) ==
LOC: EC 18:53
DX: N93.8 Other specified abnormal uterine and vaginal bleeding (principal); R10.30 Lower abdominal pain, unspecified; D72.829 Elevated white blood cell count, unspecified; F17.200 Nicotine dependence, unspecified, uncomplicated; Z32.02 Encounter for pregnancy test, result negative; Z87.42 Personal history of other diseases of the female genital tract; Z98.890 Other specified postprocedural states; Z91.018 Allergy to other foods; Z91.030 Bee allergy status; Z91.048 Other nonmedicinal substance allergy status
CPT/HCPCS: 36415; 80053; 82150; 83690; 85025; 81003; 81025; 87808; 87491; 87591; 87070; 87205; 74018; 93975; 76830; 99284; 96374; 96361; J1885

== ENCOUNTER 2018-09-18 18:27 | Emergency (ER) | payer OTHER ==
[2018-09-18 18:33] VITALS: TEMP 98
[2018-09-18] MEDS ORDERED: predniSONE 50 MG TAB PO STA (18:36)
[2018-09-18] MEDS ORDERED: IPRATROPIUM-ALBUTEROL 3 ML NEB INHALATION STA (18:36)
[2018-09-18] MEDS ORDERED: LORazepam 1 MG TAB PO STA (18:41)
--- NOTE | 2018-09-18 19:33 | XR ---
EXAMINATION TYPE: XR chest 2V DATE OF EXAM: 09/18/2018 COMPARISON: 05/16/2018 HISTORY: Short of breath TECHNIQUE: Frontal and lateral views of the chest are obtained. FINDINGS: Heart and mediastinum are normal. Lungs are clear. Diaphragm is normal. Bony thorax appear s normal. IMPRESSION: Normal chest. No change.
[2018-09-18 19:46] VITALS: BP 111/62; PULSE 98; RESP 16
--- NOTE | 2018-09-18 19:55 | ED ---
General Adult HPI - General Chief complaint: Recheck/Abnormal Lab/Rx Stated complaint: asthma attack Time Seen by Provider: 09/18/18 18:36 Source: patient, EMS, RN notes reviewed, old records reviewed Mode of arrival: EMS Limitations: no limitations - History of Present Illness Initial comments: 28-year-old female patient past history of asthma presents to ED if she states that she sustained a mild asthma exacerbation. Patient reports that she was walking she began to experience a mild wheezing. Patient states that she does not have a rescue inhaler, Zofran out of her asthma medications for approximately 1 month. She states that she then called ambulance for transfer patient to hospital. Upon arrival to Hospital patient's symptoms have mostly r esolved, experiencing some minor shortness of breath and wheezing. Patient denies any other complaints. Patient denies any pain, chest pain, abdominal pain, nausea vomiting diarrhea. Patient states that she is not . Systemic: Pt denies fatigue, myalgia, fever/chills, rash. Pt denies weakness, night sweats, weight loss. Neuro: Pt denies headache, visual disturbances, syncope or pre-syncope. HEENT: Pt denies ocular discharge or irritation, otalgia, rhinorrhea, pharyngitis or notable lymphadenopathy. Cardiopulmonary: Pt denies chest pain, heart palpitations, dyspnea on exertion. Abdominal/GI: Pt denies abdominal pain, n/v/d. : Pt denies dysuria, burning w/ urination, frequency/urgency. Denies new onset urinary or bowel incontinence. MSK: Pt denies myalgia, loss of strength or function in extremities. Neuro: Pt denies new onset weakness, paresthesias. - Related Data Previous Rx's Medication Instructions Recorded Albuterol Inhaler [Ventolin Hfa 1 - 2 puff INHALATION Q4-6H PRN #1 09/18/18 Inhaler] inhaler Albuterol Nebulized [Ventolin 2.5 mg INHALATION Q4H PRN 10 Days 09/18/18 Nebulized] nebu predniSONE 50 mg PO DAILY 4 Days #4 tab 09/18/18 Allergies Allergy/AdvReac Type Severity Reaction Status Date / Time pollen extracts Allergy Unknown Verified 08/30/18 19:38 tomato Allergy Unknown Verified 08/30/18 19:38 venom-honey bee Allergy Unknown Verified 08/30/18 19:38 [bee venom (honey bee)] Review of Systems ROS Statement: Those systems with pertinent positive or pertinent negative responses have been documented in the HPI. ROS Other: All systems not noted in ROS Statement are negative. Past Medical History Past Medical History: Asthma Additional Past Medical History / Comment(s): ovarian cyst, back pain History of Any Multi-Drug Resistant Organisms: None Reported Past Surgical History: Section Additional Past Surgical History / Comment(s): cysyts removed from ovaries Past Anesthesia/Blood Transfusion Reactions: No Reported Reaction Past Psychological History: Anxiety, Bipolar Smoking Status: Current every day smoker Past Alcohol Use History: None Reported Past Drug Use History: Marijuana - Past Family History Mother Family Medical History: No Reported History Additional Family Medical History / Comment(s): no hx of family medical problems General Exam - General Exam Comments Initial Comments: Constitutional: NAD, AOX3, Pt has pleasant affect. HEENT: NC/AT, trachea midline, neck supple, no lymphadenopathy. Posterior pharynx non erythematous, without exudates. External ears appear normal, without discharge. Mucous membranes moist. Eyes PERRLA, EOM intact. There is no scleral icterus. No pallor noted. Cardiopulmonary: RRR, no murmurs, rubs or gallops, no JVD noted. Mild wheezing noted in anterior lung sheridan, resolved after breathing treatment. Lungs clear to auscultation in anterior and posterior sheridan bilaterally. No peripheral edema. Abdominal exam: Abdomen soft and non-distended. Abdomen non-tender to palpation in all 4 quadrants. Bowel sounds active in LLQ. No hepatosplenomegaly. No ecchymosis Neuro: CN II-XII grossly intact. No nuchal rigidity. MSK: No posterior calf tenderness bilaterally, homans sign negative bilaterally. Posterior tibialis and radial pulse +2 bilaterally. Sensation intact in upper and lower extremities. Full active ROM in upper and lower extremities, 5/5 stregnth. Limitations: no limitations Course Vital Signs 09/18/18 09/18/18 09/18/18 18:28 18:54 19:04 Temperature 98.0 F Pulse Rate 101 H 101 H 102 H Pulse Rate [ Pulse Oximetery ] Respiratory 18 Rate Blood Pressure 133/73 Blood Pressure [Left Arm] O2 Sat by Pulse 97 Oximetry 09/18/18 19:45 Temperature Pulse Rate Pulse Rate [ 98 Pulse Oximetery ] Respiratory 16 Rate Blood Pressure Blood Pressure 111/62 [Left Arm] O2 Sat by Pulse 94 L Oximetry Medical Decision Making - Medical Decision Making 28-year-old female patient past history of asthma presents to ED if she states that she sustained a mild asthma exacerbation. Patient reports that she was walking she began to experience a mild wheezing. Patient states that she does not have a rescue inhaler, Zofran out of her asthma medications for approximately 1 month. She states that she then called ambulance for transfer patient to hospital. Upon arrival to Hospital patient's symptoms have mostly resolved, experiencing some minor shortness of breath and wheezing. Patient denies any other complaints. Patient denies any pain, chest pain, abdominal pain, nausea vomiting diarrhea. Patient states that she is not . Patient was unstable, afebrile. Physical exam displayed: Mild wheezing noted in anterior lung sheridan, resolved after breathing treatment. Lungs clear to auscultation in anterior and posterior sheridan bilaterally. Chest x-ray displayed no acute process. Patient asymptomatic after treatment treatment. Patient was discharged with refill of asthma medications, have his steroids. Patient to follow up with primary care brother was 2 days. Patient was returned irritation worsens. Case discussed with Dr. Ortiz. Disposition Clinical Impression: Asthma exacerbation Disposition: HOME SELF-CARE Condition: Stable Instructions (If sedation given, give patient instructions): Asthma (ED) Additional Instructions: Patient to adhere to previously discussed treatment plan and will take medication(s) as directed. Patient to follow up with PCP in 1-2 days. Patient to return to ED if symptoms do not improve. Please take medications as directed. Please follow-up with primary care provider in 1-2 days. Please use as inhaler as needed if asthma symptoms return. Prescriptions: predniSONE 50 mg PO DAILY #5 tab predniSONE 50 mg PO DAILY 4 Days #4 tab Albuterol Inhaler [Ventolin Hfa Inhaler] 1 - 2 puff INHALATION Q4-6H PRN #1 inhaler PRN Reason: Cough Albuterol Nebulized [Ventolin Nebulized] 2.5 mg INHALATION Q4H PRN 10 Days nebu PRN Reason: Cough Is patient prescribed a controlled substance at d/c from ED?: No Referrals: Jaison Shah MD [Primary Care Provider] - 1-2 days
== END 2018-09-18 20:01 | disposition home or self-care (01) ==
LOC: EC 18:27
DX: J45.901 Unspecified asthma with (acute) exacerbation (principal); F17.200 Nicotine dependence, unspecified, uncomplicated; Z91.018 Allergy to other foods; Z91.030 Bee allergy status; Z91.048 Other nonmedicinal substance allergy status
CPT/HCPCS: 94640; 71046; 99285; J7512

== ENCOUNTER → 2018-11-06 | Outpatient (CLI) | payer OTHER ==
--- NOTE | 2018-11-08 18:44 | MR ---
EXAMINATION TYPE: MR brain wo/w con DATE OF EXAM: 11/06/2018 COMPARISON: MRI brain August 03, 2010. HISTORY: Migraines TECHNIQUE: Multiplanar, multisequence images of the brain and brainstem is performed without and with IV contras t, utilizing 7.5 mL intravenous Gadavist . FINDINGS: Diffusion weighted images demonstrate no evidence of a recent infarct or other diffusion ab normality. There is no extra-axial fluid collection or significant white matter signal abnormality. The ventricular system and cisternal spaces are normal in size and appearance. The brain volume is age appropriate. Midline structures demonstrate normal morphology. The craniocervical junction appears within normal limits. Post contrast images demonstrate no abnormal enhancement. The dural venous sinuses appear pa tent. Mild mucosal thickening involving ethmoid and maxillary sinuses bilaterally is redemonstrated. No suspicious air-fluid levels. Globes are intact bilaterally. Patchy fluid signal right mastoid air cells is redemonstrated presumed retained secretions. IMPRESSION: No new findings or significant change from prior MRI.
== END | disposition home or self-care (01) ==
LOC: RADMRIMAIN 20:48
PROVIDERS: ATTEND Psychiatry & Neurology Neurology
DX: R51 Headache (principal)
CPT/HCPCS: 70553; A9585

== ENCOUNTER 2019-07-12 05:44 | Emergency (ER) | payer OTHER ==
[2019-07-12 05:55] VITALS: BP 118/75; PULSE 102; RESP 20; TEMP 98.1
[2019-07-12] MEDS ORDERED: HYDROcodone/APAP 5-325MG 1 EACH TAB PO STA (06:07)
--- NOTE | 2019-07-12 06:12 | ED ---
Lower Extremity Injury HPI - General Chief Complaint: Extremity Injury, Lower Stated Complaint: Knee Injury Time Seen by Provider: 07/12/19 05:58 Source: patient, family, RN notes reviewed Mode of arrival: wheelchair Limitations: no limitations - History of Present Illness Initial Comments: 29-year-old female presents emergency Department chief complaint of right knee pain. Patient states she went to [place] states her knee buckled, gave out. 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 Shah. Patient does not complaints seen orthopedic physician or neurologist. Patient denies any bowel complaints incontinence. Patient states the pain is in front of her knee below her patella. She states she did not feel he needs go backwards and states that she cannot see her patella go to the side. Patient states that she has not taken anything for pain did not for any heat or ice on her knee. This happened less than one hour prior arrival. - Related Data Previous Rx's Medication Instructions Recorded Albuterol Inhaler [Ventolin Hfa 1 - 2 puff INHALATION Q4-6H PRN #1 09/18/18 Inhaler] inhaler Albuterol Nebulized [Ventolin 2.5 mg INHALATION Q4H PRN 10 Days 09/18/18 Nebulized] nebu predniSONE 50 mg PO DAILY 4 Days #4 tab 09/18/18 Ibuprofen [Motrin] 600 mg PO Q8HR PRN #30 tab 07/12/19 Allergies Allergy/AdvReac Type Severity Reaction Status Date / Time pollen extracts Allergy Unknown Verified 07/12/19 05:55 tomato Allergy Unknown Verified 07/12/19 05:55 venom-honey bee Allergy Unknown Verified 07/12/19 05:55 [bee venom (honey bee)] Review of Systems ROS Statement: Those systems with pertinent positive or pertinent negative responses have been documented in the HPI. ROS Other: All systems not noted in ROS Statement are negative. Past Medical History Past Medical History: Asthma Additional Past Medical History / Comment(s): ovarian cyst, back pain History of Any Multi-Drug Resistant Organisms: None Reported Past Surgical History: Section Additional Past Surgical History / Comment(s): cysyts removed from ovaries Past Anesthesia/Blood Transfusion Reactions: No Reported Reaction Past Psychological History: Anxiety, Bipolar Smoking Status: Current every day smoker Past Alcohol Use History: None Reported Past Drug Use History: Marijuana - Past Family History Mother Family Medical History: No Reported History Additional Family Medical History / Comment(s): no hx of family medical problems General Exam Limitations: no limitations General appearance: alert, in no apparent distress Head exam: Present: atraumatic, normocephalic, normal inspection Respiratory exam: Present: normal lung sounds bilaterally. Absent: respiratory distress, wheezes, rales, rhonchi, stridor Cardiovascular Exam: Present: regular rate, normal rhythm, normal heart sounds. Absent: systolic murmur, diastolic murmur, rubs, gallop, clicks Extremities exam: Present: other (There is no swelling of the right knee, right leg is neurovascularly intact with equal pulses compared to the left no ecchymosis no significant swelling, there is some tenderness over the inferior patellar region there is no laxity noted negative anterior posterior drawer test) Course Vital Signs 07/12/19 05:52 Temperature 98.1 F Pulse Rate 102 H Respiratory 20 Rate Blood Pressure 118/75 O2 Sat by Pulse 99 Oximetry Medical Decision Making - Medical Decision Making X-rays negative for acute osseous lesion fracture or any other acute abnormality. Patient most likely has a right knee sprain though concern for possible underlying meniscus or ligamentous injury. Patient placed in knee immobilizer follow-up with orthopedics. Disposition Clinical Impression: Right knee sprain Disposition: HOME SELF-CARE Condition: Stable Instructions (If sedation given, give patient instructions): Knee Sprain (ED) Additional Instructions: Please return to the Emergency Department if symptoms worsen or any other concerns. Prescriptions: Ibuprofen [Motrin] 600 mg PO Q8HR PRN #30 tab PRN Reason: Pain Is patient prescribed a controlled substance at d/c from ED?: No Referrals: Jaison Shah MD [Primary Care Provider] - 1-2 days Feroz Perez DO [Medical Doctor] - 1-2 days Time of Disposition: 06:29
--- NOTE | 2019-07-12 06:22 | XR ---
EXAMINATION TYPE: XR knee complete RT DATE OF EXAM: 07/12/2019 COMPARISON: 03/15/2014 HISTORY: Knee pain TECHNIQUE: 3 views FINDINGS: There is no sign of fracture nor dislocation. Joint spaces are normal. There is no sign of joint effusion. There are no pathologic calcifications. IMPRESSION: Normal right knee. No change.
[2019-07-12] MEDS ORDERED: ACET/COD 300 MG/30 MG STARTER PACK 6 TAB BTL PO STA (06:29)
== END 2019-07-12 06:49 | disposition home or self-care (01) ==
LOC: EC 05:44
DX: S83.91XA Sprain of unspecified site of right knee, initial encounter (principal); M51.36 Other intervertebral disc degeneration, lumbar region; F17.200 Nicotine dependence, unspecified, uncomplicated; Z91.018 Allergy to other foods; Z91.030 Bee allergy status; Z91.048 Other nonmedicinal substance allergy status; X50.9XXA Other and unspecified overexertion or strenuous movements or postures, initial encounter; Y93.89 Activity, other specified
CPT/HCPCS: 73562; 99283; L1830

== ENCOUNTER 2019-08-16 03:17 | Emergency (ER) | payer OTHER ==
[2019-08-16 03:25] VITALS: PULSE 112; RESP 18; TEMP 98.5
[2019-08-16] MEDS ORDERED: KETOROLAC 30 MG/ML 1 ML VIAL IM STA (03:39)
--- NOTE | 2019-08-16 03:39 | ED ---
Extremity Problem HPI - General Chief complaint: Extremity Problem,Nontraumatic Stated complaint: arm swelling Time Seen by Provider: 08/16/19 03:36 Source: patient Mode of arrival: ambulatory Limitations: no limitations - History of Present Illness Initial comments: Rebecca is a 29-year-old female presents the ER today for evaluation of left forearm pain. Patient reports she has pain in her left forearm that radiates up the arm. Pain began yesterday. Patient reports the pain woke her from sleep pain is worse with extending her wrist or any pressure. It was relieved slightly with rest ice and anti-inflammatories. Patient denies any injury she still has full range of motion normal sensation in her hand. - Related Data Previous Rx's Medication Instructions Recorded Albuterol Inhaler [Ventolin Hfa 1 - 2 puff INHALATION Q4-6H PRN #1 09/18/18 Inhaler] inhaler Albuterol Nebulized [Ventolin 2.5 mg INHALATION Q4H PRN 10 Days 09/18/18 Nebulized] nebu predniSONE 50 mg PO DAILY 4 Days #4 tab 09/18/18 Ibuprofen [Motrin] 600 mg PO Q8HR PRN #30 tab 07/12/19 Allergies Allergy/AdvReac Type Severity Reaction Status Date / Time pollen extracts Allergy Unknown Verified 07/12/19 05:55 tomato Allergy Unknown Verified 07/12/19 05:55 venom-honey bee Allergy Unknown Verified 07/12/19 05:55 [bee venom (honey bee)] Review of Systems ROS Statement: Those systems with pertinent positive or pertinent negative responses have been documented in the HPI. ROS Other: All systems not noted in ROS Statement are negative. Past Medical History Past Medical History: Asthma Additional Past Medical History / Comment(s): ovarian cyst, back pain History of Any Multi-Drug Resistant Organisms: None Reported Past Surgical History: Section Additional Past Surgical History / Comment(s): cysyts removed from ovaries Past Anesthesia/Blood Transfusion Reactions: No Reported Reaction Past Psychological History: Anxiety, Bipolar Smoking Status: Current every day smoker Past Alcohol Use History: None Reported Past Drug Use History: Marijuana - Past Family History Mother Family Medical History: No Reported History Additional Family Medical History / Comment(s): no hx of family medical problems General Exam - General Exam Comments Initial Comments: Physical Exam GENERAL: Patient is well-developed and well-nourished. Patient is nontoxic and well-hydrated and is in no distress. HENT: Normocephalic, Atraumatic. EYES: PERRL, EOMI PULMONARY: Unlabored respirations. CARDIOVASCULAR: RRR Warm and well perfused extremities ABDOMEN: Non-distended SKIN: No rashes or bruising : Deferred NEUROLOGIC: Alert and oriented Normal speech Normal gait MUSCULOSKELETAL: Moving all extremities with no apparent injury Positive Tinel's test, Postive Phalen maneuver reproducing pain PSYCHIATRIC: No SI/HI Limitations: no limitations Course Vital Signs 08/16/19 03:22 Temperature 98.5 F Pulse Rate 112 H Respiratory 18 Rate Medical Decision Making - Medical Decision Making The patient was seen and evaluated history and physical exam are obtained physical exam concerning for likely carpal tunnel pain Patient's exam is otherwise unremarkable arm is not red swollen the compartments are soft she has full range of motion of the joints no signs of trauma Supportive care measures were discussed, patient was given a printout on treatment of carpal tunnel including exercises she can do and advised follow-up with primary care for possible referral to physical therapy Disposition Clinical Impression: Carpal tunnel syndrome of left wrist, Arm pain, left Disposition: HOME SELF-CARE Condition: Stable Instructions (If sedation given, give patient instructions): Paresthesia (ED) Is patient prescribed a controlled substance at d/c from ED?: No Referrals: Jaison Shah MD [Primary Care Provider] - 1-2 days
== END 2019-08-16 03:46 | disposition home or self-care (01) ==
LOC: EC 03:17
DX: G56.02 Carpal tunnel syndrome, left upper limb (principal); F17.200 Nicotine dependence, unspecified, uncomplicated; Z91.030 Bee allergy status; Z91.018 Allergy to other foods; Z91.048 Other nonmedicinal substance allergy status
CPT/HCPCS: 99283; 96372; J1885

== ENCOUNTER 2019-11-18 14:17 | Emergency (ER) | payer OTHER ==
[2019-11-18] MEDS ORDERED: IBUPROFEN 600 MG TAB PO STA (14:54)
[2019-11-18] MEDS ORDERED: ACETAMINOPHEN TAB 325 MG TAB PO STA (14:54)
[2019-11-18] MEDS ORDERED: AMOXIC-POT CLAV 875MG STARTER PACK 2 TAB BTL PO STA (15:03)
[2019-11-18] MEDS ORDERED: AMOXIC-POT CLAV 875-125MG 1 EACH TAB PO STA (15:03)
--- NOTE | 2019-11-18 15:03 | ED ---
General Adult HPI - General Chief complaint: ENT Stated complaint: ears, throat pain with chills Time Seen by Provider: 11/18/19 14:27 Source: patient, RN notes reviewed, old records reviewed Mode of arrival: wheelchair Limitations: no limitations - History of Present Illness Initial comments: 29-year-old female patient presents to ED with chief complaint of bilateral ear and throat pain last 2 days. Patient denies any cough congestion shortness of breath pain in her chest or abdomen. Denies any chance of being as she is not sexually active. Denies any past medical history. Denies any other complaints. Systemic: Pt denies fatigue, fever/chills, rash. Pt denies weakness, night sweats, weight loss. Neuro: Pt denies headache, visual disturbances, syncope or pre-syncope. HEENT: Pt denies ocular discharge or irritation, rhinorrhea. Cardiopulmonary: Pt denies chest pain, SOB, heart palpitations, dyspnea on exertion. Abdominal/GI: Pt denies abdominal pain, n/v/d. : Pt denies dysuria, burning w/ urination, frequency/urgency. Denies new onset urinary or bowel incontinence. MSK: Pt denies myalgia, loss of strength or function in extremities. Neuro: Pt denies new onset weakness, paresthesias. - Related Data Home Medications Medication Instructions Recorded Confirmed Baclofen 10 mg PO BID 11/18/19 11/18/19 Hydrocodone/Acetaminophen [[place] 1 tab PO DAILY 11/18/19 11/18/19 5-325] Previous Rx's Medication Instructions Recorded Amoxicillin/Potassium Clav 1 each PO Q12HR 10 Days #20 tab 11/18/19 [Augmentin 875-125 Tablet] Allergies Allergy/AdvReac Type Severity Reaction Status Date / Time pollen extracts Allergy Unknown Verified 11/18/19 16:20 tomato Allergy Unknown Verified 11/18/19 16:20 venom-honey bee Allergy Unknown Verified 11/18/19 16:20 [bee venom (honey bee)] Review of Systems ROS Statement: Those systems with pertinent positive or pertinent negative responses have been documented in the HPI. ROS Other: All systems not noted in ROS Statement are negative. Past Medical History Past Medical History: Asthma Additional Past Medical History / Comment(s): ovarian cyst, back pain History of Any Multi-Drug Resistant Organisms: None Reported Past Surgical History: Section Additional Past Surgical History / Comment(s): cysyts removed from ovaries Past Anesthesia/Blood Transfusion Reactions: No Reported Reaction Past Psychological History: Anxiety, Bipolar Smoking Status: Current every day smoker Past Alcohol Use History: None Reported Past Drug Use History: Marijuana - Past Family History Mother Family Medical History: No Reported History Additional Family Medical History / Comment(s): no hx of family medical problems General Exam - General Exam Comments Initial Comments: Constitutional: NAD, AOX3, Pt has pleasant affect. HEENT: NC/AT, trachea midline, neck supple, no lymphadenopathy noted. Posterior pharynx moderately erythematous erythematous, without exudates. External ears appear normal, without discharge. Mucous membranes moist. Eyes PERRLA, EOM intact. There is no scleral icterus. No pallor noted. Cardiopulmonary: RRR, no murmurs, rubs or gallops, no JVD noted. Lungs CTAB in anterior and posterior sheridan. No peripheral edema. Abdominal exam: Abdomen soft and non-distended. Abdomen non-tender to palpation in all 4 quadrants. Bowel sounds active in LLQ. No hepatosplenomegaly. No ecchymosis Neuro: CN II-XII grossly intact. No nuchal rigidity. No raccon eyes, no felder sign, no hemotympanum. No cervical spinal tenderness. MSK: No posterior calf tenderness bilaterally, homans sign negative bilaterally. Posterior tibialis and radial pulse +2 bilaterally. Sensation intact in upper and lower extremities. Full active ROM in upper and lower extremities, 5/5 stregnth. Limitations: no limitations Course Vital Signs 11/18/19 14:23 Temperature 101.0 F H Pulse Rate 102 H Respiratory 18 Rate Blood Pressure 129/88 O2 Sat by Pulse 98 Oximetry Medical Decision Making - Medical Decision Making 29-year-old female patient resident for evaluation of sore throat otalgia and fever last 2 days. Patient vital signs displayed femur patient administered antipyretic. Physical exam displayed erythematous posterior pharynx. No exudates or peritonsillar abscess. Laboratory investigations obtained and unremarkable. Strep negative, therefore negative. UA negative. Patient will be treated for this pharyngitis with Augmentin oh test for: Will follow up with primary care provider tomorrow and return to ER condition worsens. Case discussed and pt seen by Dr. Ortiz. - Lab Data Lab Results 11/18/19 11/18/1920 Range/Units 14:56 15:00 15:07 Urine Color Yellow Urine Appearance Clear (Clear) Urine pH 8.0 (5.0-8.0) Ur Specific [place] 1.018 (1.001-1.035) Urine Protein Trace H (Negative) Urine Glucose (UA) Negative (Negative) Urine Ketones Negative (Negative) Urine Blood Negative (Negative) Urine Nitrite Negative (Negative) Urine Bilirubin Negative (Negative) Urine Urobilinogen 3.0 (<2.0) mg/dL Ur Leukocyte Esterase Negative (Negative) Urine HCG, Qual Not Detected (Not Detectd) Heterophile Antibody (Negative) Group A Strep Rapid Negative (Negative) 11/18/19 Range/Units 16:02 Urine Color Urine Appearance (Clear) Urine pH (5.0-8.0) Ur Specific [place] (1.001-1.035) Urine Protein (Negative) Urine Glucose (UA) (Negative) Urine Ketones (Negative) Urine Blood (Negative) Urine Nitrite (Negative) Urine Bilirubin (Negative) Urine Urobilinogen (<2.0) mg/dL Ur Leukocyte Esterase (Negative) Urine HCG, Qual (Not Detectd) Heterophile Antibody Negative (Negative) Group A Strep Rapid (Negative) Disposition Clinical Impression: Pharyngitis Disposition: HOME SELF-CARE Condition: Stable Instructions (If sedation given, give patient instructions): Pharyngitis (ED) Additional Instructions: Taken antibiotics as directed. Follow up with primary care provider tomorrow. Return to ER if condition worsens in any way. Use tylenol and Motrin as needed for pain or fever. Prescriptions: Amoxicillin/Potassium Clav [Augmentin 875-125 Tablet] 1 each PO Q12HR 10 Days #20 tab Is patient prescribed a controlled substance at d/c from ED?: No Referrals: Jaison Shah MD [Primary Care Provider] - 1-2 days
[2019-11-18 15:36] LABS: Appearance,Urine Clear (Clear); Bilirubin,Urine Negative (Negative); Blood,Urine Negative (Negative); Color,Urine Yellow; Glucose,Urine (UA) Negative (Negative); Ketones,Urine Negative (Negative); Leukocyte Esterase,Urine Negative (Negative); Nitrite,Urine Negative (Negative); Protein,Urine Trace (Negative); Specific Gravity,Urine 1.018 (1.001-1.035)
--- NOTE | 2019-11-18 15:38 | XR ---
EXAMINATION TYPE: XR soft tissue neck DATE OF EXAM: 11/18/2019 COMPARISON: NONE HISTORY: Throat pain. TECHNIQUE: Two-view soft tissue neck. FINDINGS: Region of the epiglottis and vallecula are within normal limits. No suspicious prevertebral soft tissue swelling. No suspicious epiglottic narrowing on the frontal view. No suspicious radioden se foreign body. IMPRESSION: As above.
[2019-11-18 17:00] VITALS: BP 110/62; PULSE 68; RESP 16; TEMP 98.1
== END 2019-11-18 17:00 | disposition home or self-care (01) ==
LOC: EC 14:17
DX: J02.9 Acute pharyngitis, unspecified (principal); F17.200 Nicotine dependence, unspecified, uncomplicated; Z91.030 Bee allergy status; Z91.018 Allergy to other foods
CPT/HCPCS: 36415; 86308; 81003; 81025; 87081; 87430; 70360; 99284; U0003

== ENCOUNTER 2019-12-17 13:08 | Emergency (ER) | payer OTHER ==
[2019-12-17] MEDS ORDERED: KETOROLAC 30 MG/ML 1 ML VIAL IM STA (14:28)
--- NOTE | 2019-12-17 15:19 | XR ---
EXAMINATION TYPE: XR lumbar spine 2 or 3V DATE OF EXAM: 12/17/2019 Comparison: 12/25/2016 Clinical History: 29-year-old female fall pain Findings: 5 lumbar type vertebral bodies. Vertebral body heights are preserved and alignment is maintained. Dis c spaces are also preserved. Slight levoconvex curvature. Impression: Slight levoconvex curvature could be positional or due to muscle spasm. No vertebral compression [place] apse or malalignment.
--- NOTE | 2019-12-17 15:23 | ED ---
Back Pain HPI - General Chief Complaint: Back Pain/Injury Stated Complaint: fall, back pain Time Seen by Provider: 12/17/19 14:23 Source: patient Limitations: no limitations - History of Present Illness Initial Comments: Patient is a 29-year-old female presenting to the emergency department with a chief complaint of back pain. Patient states she was in the bathroom and her kids were splashing water outside of the bathtub when she slipped and fell on her Botox and lower back region. Patient states afterwards she developed pain near the coccygeal region without any radiation. She denies any centralized seizure, urinary retention with overflow incontinence or bowel incontinence. She reports pain is exacerbated in a sitting position. - Related Data Home Medications Medication Instructions Recorded Confirmed No Known Home Medications 12/17/19 12/17/19 Allergies Allergy/AdvReac Type Severity Reaction Status Date / Time pollen extracts Allergy Unknown Verified 12/17/19 13:46 tomato Allergy Unknown Verified 12/17/19 13:46 venom-honey bee Allergy Unknown Verified 12/17/19 13:46 [bee venom (honey bee)] Review of Systems ROS Statement: Those systems with pertinent positive or pertinent negative responses have been documented in the HPI. ROS Other: All systems not noted in ROS Statement are negative. Past Medical History Past Medical History: Asthma Additional Past Medical History / Comment(s): ovarian cyst, back pain History of Any Multi-Drug Resistant Organisms: None Reported Past Surgical History: Section Additional Past Surgical History / Comment(s): csyts removed from ovaries Past Anesthesia/Blood Transfusion Reactions: No Reported Reaction Past Psychological History: Anxiety, Bipolar Smoking Status: Current every day smoker Past Alcohol Use History: None Reported Past Drug Use History: Marijuana - Past Family History Mother Family Medical History: No Reported History Additional Family Medical History / Comment(s): no hx of family medical problems General Exam Limitations: no limitations General appearance: alert, in no apparent distress Head exam: Present: atraumatic, normocephalic, normal inspection Eye exam: Present: normal appearance, PERRL, EOMI Pupils: Present: normal accommodation ENT exam: Present: normal exam, normal oropharynx, mucous membranes moist, TM's normal bilaterally, normal external ear exam Neck exam: Present: normal inspection, full ROM. Absent: tenderness Respiratory exam: Present: normal lung sounds bilaterally. Absent: respiratory distress, wheezes Cardiovascular Exam: Present: regular rate, normal rhythm, normal heart sounds GI/Abdominal exam: Present: soft. Absent: distended, tenderness, guarding Extremities exam: Present: normal inspection, full ROM. Absent: tenderness Back exam: Present: normal inspection, full ROM, tenderness (Tenderness at the coccygeal region.), paraspinal tenderness (Mild, right-sided paraspinal tenderness in the sacral region.). Absent: CVA tenderness (R), CVA tenderness (L), muscle spasm Neurological exam: Present: alert, oriented X3, normal gait Psychiatric exam: Present: normal affect, normal mood Skin exam: Present: warm, dry, intact, normal color Course Vital Signs 12/17/19 13:43 Temperature 98.1 F Pulse Rate 88 Respiratory 18 Rate Blood Pressure 103/64 O2 Sat by Pulse 98 Oximetry Disposition Clinical Impression: Coccygeal pain, acute, Coccygeal injury Disposition: HOME SELF-CARE Condition: Stable Instructions (If sedation given, give patient instructions): Coccyx Injury (ED) Additional Instructions: Use a donut cushion. Take prescribed medication as directed. Do not drive or operate heavy machinery when taking the medication. Return to emergency department if symptoms worsen. Is patient prescribed a controlled substance at d/c from ED?: No Referrals: Jaison Shah MD [Primary Care Provider] - 1-2 days Time of Disposition: 15:36
--- NOTE | 2019-12-17 15:24 | XR ---
EXAMINATION TYPE: XR pelvis AP view, XR sacrum coccyx DATE OF EXAM: 12/17/2019 CLINICAL HISTORY: Fall TECHNIQUE: A single AP view of the pelvis obtained. 3 views of the sacrum and coccyx obtained. COMPARISON: None. FINDINGS: There is no acute fracture or dislocation evident in the pelvis, sacrum, or coccyx. The hi p joints appear symmetric and unremarkable. Sacroiliac joints are symmetric and unremarkable. Pubic s ymphysis is not widened. The overlying soft tissue appears unremarkable. IMPRESSION: There is no acute fracture or dislocation of the pelvis, sacrum, or coccyx.
[2019-12-17] MEDS ORDERED: ACET/COD 300 MG/30 MG STARTER PACK 6 TAB BTL PO STA (15:38)
[2019-12-17 15:57] VITALS: BP 100/58; PULSE 82; RESP 20; TEMP 98
== END 2019-12-17 15:56 | disposition home or self-care (01) ==
LOC: EC 13:08
DX: S39.92XA Unspecified injury of lower back, initial encounter (principal); F17.200 Nicotine dependence, unspecified, uncomplicated; Z91.018 Allergy to other foods; Z91.048 Other nonmedicinal substance allergy status; Z91.030 Bee allergy status; W01.0XXA Fall on same level from slipping, tripping and stumbling without subsequent striking against object, initial encounter; Y92.091 Bathroom in other non-institutional residence as the place of occurrence of the external cause
CPT/HCPCS: 72100; 72170; 72220; 99283; 96372; J1885

== ENCOUNTER → 2020-02-02 | Outpatient (CLI) | payer OTHER ==
--- NOTE | 2020-02-02 16:43 | MR ---
EXAMINATION TYPE: MR lumbar spine wo con DATE OF EXAM: 02/02/2020 COMPARISON: MRI lumbar spine February 24, 2017 HISTORY: Low back pain TECHNIQUE: Multiplanar, multisequence imaging of the lumbar spine is performed without IV contrast. FINDINGS: Sagittal images of the lumbar spine show vertebral body heights and alignment to remain sat isfactory. Persistent disc desiccation at L3-L4 and L5-S1 levels. New mild disc space narrowing with vacuum disc phenomenon L5-S1 level. The conus medullaris remains normal in position and signal ending mid L1 level. The bone marrow signal intensity remains within normal limits. Axial images show the T12-L1, L1-L2, and L2-L3 levels all to remain within normal limits. Axial images at the L3-L4 level show mild broad disc bulge minimally effacing anterior thecal sac. No significant change from prior. Axial images at L4-L5 level show mild broad-based posterior disc protrusion with spinal canal is pres erved with mild facet degenerative changes bilaterally. No significant change from prior. Axial images at the L5-S1 level show [id number] broad disc bulge with left paracentral disc pro trusion component mildly effacing the anterior thecal sac with additional effacement of the left cent ral S1 nerve on axial image 4 identified more prominent from prior study. Patent bilateral neural for dexter. No suspicious incidental retroperitoneal findings. IMPRESSION: More prominent disc herniation L5-S1 level encroaches on the central left S1 nerve.
== END | disposition home or self-care (01) ==
LOC: RADMRIMAIN 07:40
PROVIDERS: ATTEND Internal Medicine
DX: M51.27 Other intervertebral disc displacement, lumbosacral region (principal)
CPT/HCPCS: 72148

== ENCOUNTER 2020-04-08 09:55 | Emergency (ER) | payer OTHER ==
[2020-04-08 10:06] VITALS: RESP 18; TEMP 99.1
--- NOTE | 2020-04-08 10:35 | ED ---
Lower Extremity Injury HPI - General Chief Complaint: Extremity Injury, Lower Stated Complaint: Leg pain Time Seen by Provider: 04/08/20 10:08 Source: patient Mode of arrival: ambulatory Limitations: no limitations - History of Present Illness Initial Comments: 29-year-old female presenting to emergency Department with a chief complaint of left leg pain. Patient does have history of herniated disc and she has developed extremity pain due to her sciatica symptoms. Patient reports the pain starts in the left paraspinal region and radiates distally to her foot. States that she call her primary care physician with concern for a DVT so she was sent to emergency Department for an ultrasound. She denies any saddle anesthesia, urinary retention with overflow incontinence or bowel incontinence. He denies any numbness or tingling, just the pain that is radiating along the posterior aspect of her left lower extremity. - Related Data Home Medications Medication Instructions Recorded Confirmed Butalb/Acetaminophen/Caffeine 1 tab PO BID PRN 12/17/19 12/17/19 [Esgic 50-325-40 mg Tablet] Multivitamins, Thera [Multivitamin 1 tab PO DAILY 12/17/19 12/17/19 (formulary)] tiZANidine HCL [Zanaflex] 4 mg PO TID 12/17/19 12/17/19 Previous Rx's Medication Instructions Recorded Cyclobenzaprine [Flexeril] 10 mg PO TID PRN #15 tab 04/08/20 Lidocaine 5% Patch [Lidoderm] 1 patch TOPICAL DAILY #6 patch 04/08/20 Allergies Allergy/AdvReac Type Severity Reaction Status Date / Time Penicillins Allergy Unknown Verified 04/08/20 10:06 Childhood pollen extracts Allergy Unknown Verified 04/08/20 10:06 tomato Allergy Unknown Verified 04/08/20 10:06 venom-honey bee Allergy Unknown Verified 04/08/20 10:06 [bee venom (honey bee)] Review of Systems ROS Statement: Those systems with pertinent positive or pertinent negative responses have been documented in the HPI. ROS Other: All systems not noted in ROS Statement are negative. Past Medical History Past Medical History: Asthma Additional Past Medical History / Comment(s): ovarian cyst, back pain History of Any Multi-Drug Resistant Organisms: None Reported Past Surgical History: Section Additional Past Surgical History / Comment(s): csyts removed from ovaries Past Anesthesia/Blood Transfusion Reactions: No Reported Reaction Past Psychological History: Anxiety, Bipolar Smoking Status: Current every day smoker Past Alcohol Use History: None Reported Past Drug Use History: Marijuana - Past Family History Mother Family Medical History: No Reported History Additional Family Medical History / Comment(s): no hx of family medical problems General Exam Limitations: no limitations General appearance: alert, in no apparent distress Head exam: Present: atraumatic, normocephalic, normal inspection Eye exam: Present: normal appearance, PERRL, EOMI Pupils: Present: normal accommodation ENT exam: Present: normal exam, normal oropharynx, mucous membranes moist, TM's normal bilaterally, normal external ear exam Neck exam: Present: normal inspection, full ROM. Absent: tenderness Respiratory exam: Present: normal lung sounds bilaterally. Absent: respiratory distress, wheezes, rales Cardiovascular Exam: Present: regular rate, normal rhythm, normal heart sounds. Absent: systolic murmur GI/Abdominal exam: Present: soft. Absent: distended, tenderness, guarding Extremities exam: Present: normal inspection, full ROM, tenderness (Tenderness along posterior aspect of the left lower extremity.), normal capillary refill, calf tenderness (Left calf pain), other (Sensation intact in bilateral lower Sturman's. +2 dorsalis pedis and posterior tibials bilateral.). Absent: pedal edema, joint swelling Back exam: Present: normal inspection, full ROM, tenderness, paraspinal tenderness (Left lumbosacral tenderness). Absent: CVA tenderness (R), CVA tenderness (L), muscle spasm, vertebral tenderness Neurological exam: Present: alert, oriented X3, normal gait Psychiatric exam: Present: normal affect, normal mood. Absent: depressed, agitated Skin exam: Present: warm, dry, intact, normal color Course Vital Signs 04/08/20 10:02 Temperature 99.1 F Pulse Rate 120 H Respiratory 18 Rate Blood Pressure 122/77 O2 Sat by Pulse 99 Oximetry Medical Decision Making - Medical Decision Making 29-year-old female with history of herniated disc presenting to the emergency room with a chief complaint of leg pain. Patient was sent to the ED by the primary care physician to rule out DVT. She performed and shows no signs of DVT. Physical examination, she does have sciatica type symptoms with tenderness along the posterior aspect of the left lower extremity which originates in the left paraspinal, lumbosacral region. The patient was given Toradol, Flexeril and Lidoderm patch. On reevaluation patient reports improvement in symptoms. No sinus symptoms of cauda equina. She will be discharged with Flexeril and Lidoderm patches. Return parameters were thoroughly discussed the patient is a nursing agreeable. Case discussed with physician. Disposition Clinical Impression: Left lumbar radiculopathy, Low back pain Disposition: HOME SELF-CARE Condition: Stable Instructions (If sedation given, give patient instructions): Lumbar Radiculopathy (ED), Lower Back Exercises (ED) Additional Instructions: Follow with the primary care physician. Follow-up with publication specialist. Take prescribed medication as directed. Return to emergency department if symptoms worsen. Prescriptions: Cyclobenzaprine [Flexeril] 10 mg PO TID PRN #15 tab PRN Reason: Muscle Spasm Lidocaine 5% Patch [Lidoderm] 1 patch TOPICAL DAILY #6 patch Is patient prescribed a controlled substance at d/c from ED?: No Referrals: Macho Ji MD [Primary Care Provider] - 1-2 days Zeeshan Terrazas DO [Doctor of Osteopathic Medicine] - 1-2 days Time of Disposition: 11:44
[2020-04-08] MEDS ORDERED: KETOROLAC 15 MG/ML 1 ML VIAL IM STA (10:55)
[2020-04-08] MEDS ORDERED: LIDOCAINE 5% PATCH TOPICAL STA (10:55)
[2020-04-08] MEDS ORDERED: CYCLOBENZAPRINE 10 MG TAB PO STA (10:55)
--- NOTE | 2020-04-08 11:28 | US ---
EXAMINATION TYPE: US venous doppler duplex LE LT DATE OF EXAM: 04/08/2020 11:10 AM COMPARISON: NONE CLINICAL HISTORY: r/o dvt. left leg pain x 5 days SIDE PERFORMED: left TECHNIQUE: The lower extremity deep venous system is examined utilizing real time linear array sonog joe with graded compression, doppler sonography and color-flow sonography. VESSELS IMAGED: Common Femoral Vein Deep Femoral Vein Greater Saphenous Vein * Femoral Vein Popliteal Vein Small Saphenous Vein * Proximal Calf Veins (* superficial vessels) Left Leg: technical limitations, patient unable to rotate leg into adequate position and unable to h old still. no evidence of DVT as visualized IMPRESSION: No evident deep venous thrombosis at or above the left knee. There is normal flow, compr essibility, vascular waveforms.
[2020-04-08 12:20] VITALS: BP 123/87; PULSE 71
== END 2020-04-08 12:19 | disposition home or self-care (01) ==
LOC: EC 09:55
DX: M54.16 Radiculopathy, lumbar region (principal); F17.200 Nicotine dependence, unspecified, uncomplicated; Z79.899 Other long term (current) drug therapy; Z88.0 Allergy status to penicillin; Z91.048 Other nonmedicinal substance allergy status; Z91.018 Allergy to other foods; Z91.030 Bee allergy status
CPT/HCPCS: 93971; 99284; 96372; J1885

== ENCOUNTER 2020-04-10 15:55 | Observation (INO) | payer OTHER ==
--- NOTE | 2020-04-10 18:47 | CT ---
EXAMINATION TYPE: CT lumbar spine wo con DATE OF EXAM: 04/10/2020 5:42 PM COMPARISON: MR 02/02/2020. HISTORY: Low back pain with Left foot numbness and leg pain. CT DLP: 627.7 mGycm Automated exposure control for dose reduction was used. Unenhanced CT of the lumbar spine was performed. Bone and soft tissue window settings are submitted as well as coronal and sagittal reconstructions. There is no acute fracture or subluxation of the lumbar spine. The vertebral body heights are grossly maintained. T11 inferior endplate Schmorl's node is seen. There is redemonstration of L5-S1 disc bulge with effacement of the left lateral recess. The remainde r the visualized disc heights are maintained. There is incidental 3 mm nonobstructing left renal calc ulus. IMPRESSION: Redemonstrated L5-S1 spondylosis with disc bulge and effacement of the left lateral recess. Otherwise no acute abnormality.
[2020-04-10] MEDS ORDERED: GABAPENTIN 100 MG CAP PO SCH (23:15)
[2020-04-10] MEDS ORDERED: HYDROcodone/APAP 5-325MG 1 EACH TAB PO SCH (23:15)
[2020-04-11 02:54] VITALS: BP 109/64; PULSE 70; RESP 16; TEMP 98.3
[2020-04-11] MEDS ORDERED: IBUPROFEN 600 MG TAB PO SCH (09:00)
--- NOTE | 2020-04-30 23:46 | HP ---
HISTORY AND PHYSICAL 30-year-old white female came in with severe intractable back pain to the lumbar spine for an epidural shot. MEDICINES: At home, [place] 5/325 daily, Motrin 600 b.i.d., Neurontin 100 t.i.d. REVIEW OF SYSTEMS: Fourteen-point review of systems negative except for difficulty with walking and lifting her legs and back pain. PHYSICAL EXAMINATION: VITAL SIGNS: Stable. Afebrile. Cardiovascular S1, S2. LUNGS: Clear. GI soft. Hematology negative Homans. Psych fair mood affect. Musculoskeletal: Tenderness to palpation lumbar spine. ASSESSMENT: Lumbar neuritis, wait for epidural shot if possible. MMODL / IJN: [id number] /
--- NOTE | 2020-05-01 06:11 | DS ---
DISCHARGE SUMMARY DATE OF ADMISSION: 04/10/2020 DATE OF DISCHARGE: 04/11/2020 DISCHARGE MEDICINES: Motrin 600 b.i.d., [place] 05/325 one daily, Neurontin 100 mg t.i.d. CONDITION: Stable. PROGNOSIS: Guarded. ACTIVITY: Ambulate as tolerated. HOSPITAL COURSE: A 29-year-old white female with lumbar disk herniation. Apparently was admitted and was discharged home the next day. Please see further orders. MMODL / IJN: [id number] /
== END 2020-04-11 05:59 | disposition left against medical advice (07) ==
LOC: 1SOBS 16:34
PROVIDERS: ADMIT Family Medicine; ATTEND Family Medicine
DX: M51.26 Other intervertebral disc displacement, lumbar region (principal); M54.16 Radiculopathy, lumbar region; Z53.29 Procedure and treatment not carried out because of patient's decision for other reasons; Z79.891 Long term (current) use of opiate analgesic; Z79.1 Long term (current) use of non-steroidal anti-inflammatories (NSAID); Z79.899 Other long term (current) drug therapy
CPT/HCPCS: 72131; G0378 ×2; G0379

== ENCOUNTER → 2020-04-13 | Outpatient (CLI) | payer OTHER ==
--- NOTE | 2020-04-13 13:39 | P.PAINCN ---
History of Present Illness - Reason for Consult Consult date: 04/13/20 - History of Present Illness This is a 30-year-old patient referred for low back and left leg pain. Patient has had low back pain since she was 17. However in the last 3 weeks she's been having low back pain and left lower extremity pain after she fell while she was at her house. She has pain radiating down the posterior aspect of her lower extremity to her legs described as numb and tingly and constant throughout the day. She says that she has significant weakness in the left lower extremity and that is very painful for her to sit. Has been to the ER multiple times in the past few weeks due to the pain. Currently a 10 out of 10, at worse a 10 out of 10, at its best and 8 out of 10. Management she has been sitting up pain doctor many years ago who had her on very strong opioid medications but she has not been on them for some time. He was given a prescription for physical therapy by her primary care provider but she has not done that yet. He is on [place], gabapentin for her pain from her primary care provider which she says isn't strong enough and is asking for an increase. She is also mentions that she has tried numerous muscle relaxers which did not help her. . In addition to above, 13-point review of systems is also negative for chest pain, shortness of breath, changes in vision, changes in hearing, new onset weakness, abdominal pain, diarrhea, extreme fatigue, malaise, fever, skin changes, homicidal or suicidal ideation, or bowel or bladder incontinence. Physical exam: Vital Signs: Reviewed in EMR GENERAL: In distress, pacing back and forth PSYCH: Mood and affect is flat, distressed SKIN: Skin color, texture, turgor normal, no rashes or lesions HEENT: Normocephalic, atraumatic. EOM intact CV: No pedal edema RESP: Respirations are unlabored, no audible wheezing GI: Abdomen non-distended MUSCULOSKELETAL: Right sided strength is 5/5 in all muscle groups. Left lower extremity EHL 4/5, dorsiflexion and plantarflexion 4/5 Lumbar spine: Straight leg raising in the sitting position is positive for radicular pain. No pain to palpation over the lumbar spine and paraspinous muscles. positive for pain with facet loading and back extension/rotation. Inability to extend lumbar spine due to pain Buttocks: No pain to palpation over the PSIS Extremities: Peripheral joint ROM is full and pain free without obvious instability or laxity in all four extremities. No edema or skin discolorations noted. Gait: Gait is normal NEUR: Bilateral upper and lower extremity coordination and muscle stretch reflexes are physiologic and symmetric. Negative clonus. No loss of sensation is noted. Cranial nerves are grossly intact. Imaging: Lumbar MRI T12-L1, L1-L2 and L2-L3 are within normal limits. L3-L4: Mild broad disc bulge effacing anterior thecal sac. No significant change. L4-L5: Mild broad based posterior disc protrusion with spinal canal preserved with mild facet degenerative changes bilaterally. L5-S1: Mild to moderate broad disc bulge with left paracentral disc protrusion component mildly effacing anterior thecal sac with additional effacement of the left central S1 nerve. Patent bilateral neural foramina. Assessment: 1. Lumbar radiculopathy 2. Bipolar disorder Plan: 1. Explanation: Diagnoses, prognoses, and multiple treatment options including but not limited to physical therapy, interventional therapies, medication management and surgery were discussed with the patient and all questions were answered to the patient's satisfaction. 2. Investigations: none 3. Counseling: The patient was counseled for 3 minutes on SMOKING CESSATION, BODY MASS INDEX, EXERCISE. Specifically, the patient was instructed regarding the importance of smoking cessation, weight control, and exercise in the context of both chronic pain and overall health. Counseled her to go through with her physical therapy prescription and encouraged her primary care provider to provide her a psychiatric provider. She has a noted history of bipolar disorder however she denies having that. 4. Procedures: Given that she does have a disc protrusion at L5-S1 level on the left correlating with her left leg symptoms we will do L5-S1 epidural steroid injection. 5. Consultations: none 6. Medications: Continue through PCP 7. Disposition: for procedure Past Medical History Past Medical History: Asthma Additional Past Medical History / Comment(s): ovarian cyst, back pain History of Any Multi-Drug Resistant Organisms: None Reported Past Surgical History: Section Additional Past Surgical History / Comment(s): csyts removed from ovaries Past Anesthesia/Blood Transfusion Reactions: No Reported Reaction Past Psychological History: Anxiety, Bipolar Smoking Status: Current every day smoker Past Alcohol Use History: None Reported Additional Past Alcohol Use History / Comment(s): smokes 6 cigarettes per day for last 6 years Past Drug Use History: Marijuana Additional Drug Use History / Comment(s): one day ago - Past Family History Mother Family Medical History: No Reported History Additional Family Medical History / Comment(s): no hx of family medical problems Medications and Allergies Home Medications Medication Instructions Recorded Confirmed Type HYDROcodone/APAP 5-325MG [[place] 1 tab PO DAILY 04/10/20 04/13/20 History 5-325] Gabapentin [Neurontin] 300 mg PO TID 04/13/20 04/13/20 History Ibuprofen [Motrin] 600 mg PO Q8HR PRN 04/13/20 04/13/20 History Allergies Allergy/AdvReac Type Severity Reaction Status Date / Time Penicillins Allergy Unknown Verified 04/13/20 13:13 Childhood pollen extracts Allergy Unknown Verified 04/13/20 13:13 tomato Allergy Unknown Verified 04/13/20 13:13 venom-honey bee Allergy Unknown Verified 04/13/20 13:13 [bee venom (honey bee)] PQRS Measure Charge Sheet Measure #226: Tobacco Use: Screen & Cessation Intervention: Pt not a tobacco u ser Measure #111: Pneumonia Vaccination: Pneumococcal vaccine NOT administered or previously given Measure #47: Advance Care Plan: Advance care planning discussed & documented, pt chose/unable to give Measure #412: Opioid Treatment Agreement: No documentation of signed opioid treatment agreement Measure #408: Opioid Therapy Follow-up Evaluation: Patient had f/u eval minimum every 3 months during opioid therapy Measure #317: Preventitive Care & Scrn High Bld Press & F/U: Normal blood pressure, f/u not required Measure #128: Body Mass Index (BMI) Screening & Follow-up: BMI documented within normal parameters Measure #131: Pain Assessment & Follow-up: Pain positive & plan documented, Follow-up scheduled Measure #431: Unhealthy Alcohol Use Preventative Care & Scrn: Patient not identified as an unhealthy alcohol user PQRS Narrative: Smoking Status Current every day smoker Home Medications: Ambulatory Orders HYDROcodone/APAP 5-325MG [[place] 5-325] 1 tab PO DAILY 04/10/20 Gabapentin [Neurontin] 300 mg PO TID 04/13/20 Ibuprofen [Motrin] 600 mg PO Q8HR PRN 04/13/20
== END | disposition home or self-care (01) ==
LOC: PNWHC3 13:05
PROVIDERS: ATTEND Anesthesiology
DX: M54.16 Radiculopathy, lumbar region (principal); F31.9 Bipolar disorder, unspecified; Z79.891 Long term (current) use of opiate analgesic; Z79.899 Other long term (current) drug therapy; Z88.0 Allergy status to penicillin; Z91.030 Bee allergy status; Z91.09 Other allergy status, other than to drugs and biological substances; Z91.018 Allergy to other foods; F17.200 Nicotine dependence, unspecified, uncomplicated
CPT/HCPCS: 99211

== ENCOUNTER 2020-04-22 05:18 | Emergency (ER) | payer OTHER ==
[2020-04-22 05:34] VITALS: PULSE 100; RESP 18
[2020-04-22] MEDS ORDERED: methylPREDNISolone SOD SUCCI 125 MG/2 ML VIAL IM STA (06:09)
[2020-04-22] MEDS ORDERED: KETOROLAC 15 MG/ML 1 ML VIAL IM STA (06:09)
--- NOTE | 2020-04-22 06:12 | ED ---
General Adult HPI - General Chief complaint: Extremity Problem,Nontraumatic Stated complaint: Numbness in LT foot Time Seen by Provider: 04/22/20 06:04 Source: patient, RN notes reviewed Mode of arrival: ambulatory - History of Present Illness Initial comments: 30-year-old female with a past medical history of asthma, ovarian cyst, anxiety, bipolar disorder presents to the emergency room for a chief complaint of left leg pain and tingling. Patient reports this started around 3:30 AM or about 2 hours prior to arrival. Patient reports that she has a disc bulge in her lower back and is currently on Neurontin for this. Patient states she is not on steroids. Patient states she sees her primary care provider for this. Patient denies any pain or tingling in the right leg. Denies bladder or bowel changes. Denies weakness of the lower extremities or difficulty moving the lower extremities. No fevers or chills. Denies history of IV drug abuse. Denies any chance of .Patient has no other complaints at this time including shortness of breath, chest pain, abdominal pain, nausea or vomiting, headache, or visual changes. - Related Data Home Medications Medication Instructions Recorded Confirmed HYDROcodone/APAP 5-325MG [[place] 1 tab PO DAILY 04/10/20 04/13/20 5-325] Gabapentin [Neurontin] 300 mg PO TID 04/13/20 04/13/20 Ibuprofen [Motrin] 600 mg PO Q8HR PRN 04/13/20 04/13/20 Previous Rx's Medication Instructions Recorded predniSONE 50 mg PO DAILY #5 tablet 04/22/20 Allergies Allergy/AdvReac Type Severity Reaction Status Date / Time Penicillins Allergy Unknown Verified 04/22/20 05:34 Childhood pollen extracts Allergy Unknown Verified 04/22/20 05:34 tomato Allergy Unknown Verified 04/22/20 05:34 venom-honey bee Allergy Unknown Verified 04/22/20 05:34 [bee venom (honey bee)] Review of Systems ROS Statement: Those systems with pertinent positive or pertinent negative responses have been documented in the HPI. ROS Other: All systems not noted in ROS Statement are negative. Past Medical History Past Medical History: Asthma Additional Past Medical History / Comment(s): ovarian cyst, back pain History of Any Multi-Drug Resistant Organisms: None Reported Past Surgical History: Section Additional Past Surgical History / Comment(s): csyts removed from ovaries Past Anesthesia/Blood Transfusion Reactions: No Reported Reaction Past Psychological History: Anxiety, Bipolar Smoking Status: Current every day smoker Past Alcohol Use History: None Reported Past Drug Use History: Marijuana - Past Family History Mother Family Medical History: No Reported History Additional Family Medical History / Comment(s): no hx of family medical problems General Exam General appearance: alert, in no apparent distress Head exam: Present: atraumatic, normocephalic, normal inspection Eye exam: Present: normal appearance, PERRL, EOMI. Absent: scleral icterus, conjunctival injection, periorbital swelling ENT exam: Present: normal exam, mucous membranes moist Neck exam: Present: normal inspection, full ROM. Absent: tenderness, meningismus, lymphadenopathy Respiratory exam: Present: normal lung sounds bilaterally. Absent: respiratory distress, wheezes, rales, rhonchi, stridor Cardiovascular Exam: Present: regular rate, normal rhythm, normal heart sounds. Absent: systolic murmur, diastolic murmur, rubs, gallop, clicks GI/Abdominal exam: Present: soft, normal bowel sounds. Absent: distended, tenderness, guarding, rebound, rigid Extremities exam: Present: full ROM (Full range of motion in the left lower extremity. Strength 5 out of 5 with hip flexion, knee extension, and plantar dorsiflexion of the left ankle.), normal capillary refill (Capillary refill less than 2 seconds, DP pulses 2+ in the left lower extremity.), other (Sensation intact left lower extremity all digits of the left foot. Skin exam is normal.). Absent: tenderness, pedal edema, joint swelling, calf tenderness (No calf tenderness. No swelling erythema or edema.) Course Vital Signs 04/22/20 05:30 Temperature 97.8 F Pulse Rate 100 Respiratory 18 Rate Blood Pressure 128/81 O2 Sat by Pulse 99 Oximetry Medical Decision Making - Medical Decision Making I did review patient's CT from 04/10/2020 which does show a redemonstrated L5 to S1 spondylosis with disc bulge and effacement of the left lateral recess. Patient has a neurovascular status intact in the left lower extremity. Patient likely experiencing sciatic nerve pain from disc bulge. Patient was given Toradol and prescribed steroids. She will take Tylenol for pain, recommended not taking Motrin with this. She will follow up with primary care and orthopedics. She will return here for any worsening symptoms which were discussed with her. Disposition Clinical Impression: Left lumbar radiculopathy Disposition: HOME SELF-CARE Condition: Good Instructions (If sedation given, give patient instructions): Lumbar Radiculopathy (ED) Additional Instructions: Please take Tylenol for pain. Take steroids as directed. You were given a dose here in the emergency room so make sure to take your next dose tomorrow. Follow-up with your doctor in one to 2 days. Return to the emergency room for any worsening symptoms. Prescriptions: predniSONE 50 mg PO DAILY #5 tablet Is patient prescribed a controlled substance at d/c from ED?: No Referrals: Macho Ji MD [Primary Care Provider] - 1-2 days Zeeshan Terrazas DO [Doctor of Osteopathic Medicine] - 1-2 days Time of Disposition: 06:11
[2020-04-22 06:23] VITALS: BP 119/69; TEMP 98.7
== END 2020-04-22 06:24 | disposition home or self-care (01) ==
LOC: EC 05:18
DX: M47.26 Other spondylosis with radiculopathy, lumbar region (principal); F17.200 Nicotine dependence, unspecified, uncomplicated; Z88.0 Allergy status to penicillin; Z91.048 Other nonmedicinal substance allergy status; Z91.030 Bee allergy status; Z91.018 Allergy to other foods; Z79.891 Long term (current) use of opiate analgesic; Z79.899 Other long term (current) drug therapy
CPT/HCPCS: 96372 ×2; 99283; J2930; J1885

== ENCOUNTER 2020-06-05 13:20 | Emergency (ER) | payer OTHER ==
[2020-06-05 13:34] VITALS: RESP 16; TEMP 99.1
[2020-06-05] MEDS ORDERED: SODIUM CHLORIDE 0.9% 1,000 ML IV STA (13:40)
[2020-06-05] MEDS ORDERED: HYDROcodone/APAP 5-325MG 1 EACH TAB PO STA (13:41)
--- NOTE | 2020-06-05 13:44 | ED ---
General Adult HPI - General Chief complaint: Seizure Stated complaint: Poss seizure Time Seen by Provider: 06/05/20 13:36 Source: patient, RN notes reviewed, old records reviewed Mode of arrival: ambulatory Limitations: no limitations - History of Present Illness Initial comments: 30-year-old female presents for evaluation of syncope versus seizure. Patient had been standing from bed, she fell striking her head. Her friend who is present states that her right leg began to twitch and shake. There has not hold body tonic-clonic activity and the patient was awake at this time although she was not appropriately responding and does not remember the exact events. She denied any preceding chest pain or palpitations. No history of seizure disorder. She states she was scheduled for an appointment with her primary care physician for prescription refill of her chronic pain medications. She was unable to make this appointment. - Related Data Home Medications Medication Instructions Recorded Confirmed HYDROcodone/APAP 5-325MG [[place] 1 tab PO DAILY PRN 04/10/20 06/05/20 5-325] DULoxetine HCL [Cymbalta] 30 mg PO DAILY 06/05/20 06/05/20 Gabapentin [Neurontin] 100 mg PO TID 06/05/20 06/05/20 Previous Rx's Medication Instructions Recorded Cephalexin [Keflex] 500 mg PO Q12HR #20 cap 06/05/20 Allergies Allergy/AdvReac Type Severity Reaction Status Date / Time Penicillins Allergy Unknown Verified 06/05/20 14:55 Childhood pollen extracts Allergy Unknown Verified 06/05/20 14:55 tomato Allergy Unknown Verified 06/05/20 14:55 venom-honey bee Allergy Unknown Verified 06/05/20 14:55 [bee venom (honey bee)] Review of Systems ROS Statement: Those systems with pertinent positive or pertinent negative responses have been documented in the HPI. ROS Other: All systems not noted in ROS Statement are negative. Past Medical History Past Medical History: Asthma Additional Past Medical History / Comment(s): ovarian cyst, back pain History of Any Multi-Drug Resistant Organisms: None Reported Past Surgical History: Section Additional Past Surgical History / Comment(s): csyts removed from ovaries Past Anesthesia/Blood Transfusion Reactions: No Reported Reaction Past Psychological History: Anxiety, Bipolar Smoking Status: Current every day smoker Past Alcohol Use History: None Reported Past Drug Use History: Marijuana - Past Family History Mother Family Medical History: No Reported History Additional Family Medical History / Comment(s): no hx of family medical problems General Exam Limitations: no limitations General appearance: alert, in no apparent distress Head exam: Present: atraumatic, normocephalic Eye exam: Present: normal appearance, PERRL, EOMI ENT exam: Present: mucous membranes dry Neck exam: Present: normal inspection. Absent: tenderness, meningismus Respiratory exam: Present: normal lung sounds bilaterally. Absent: respiratory distress Cardiovascular Exam: Present: regular rate, normal rhythm GI/Abdominal exam: Present: soft. Absent: distended, tenderness, guarding Extremities exam: Present: normal inspection, normal capillary refill. Absent: calf tenderness Neurological exam: Present: alert, oriented X3, CN II-XII intact. Absent: motor sensory deficit Psychiatric exam: Present: flat affect Skin exam: Present: warm, dry, intact. Absent: cyanosis, diaphoretic Course Vital Signs 06/05/20 13:29 Temperature 99.1 F Pulse Rate 110 H Respiratory 16 Rate Blood Pressure 123/74 O2 Sat by Pulse 100 Oximetry EKG Findings - EKG Comments: EKG Findings:: EKG: Sinus rhythm with short TN, rate of 98, TN interval 104, QRS duration 82, QTC 446, no ST segment elevation. Medical Decision Making - Medical Decision Making 30-year-old female history suggestive of syncope with head injury. There was a concern for seizure activity however there is no postictal. There was no tonic- clonic seizure activity, there is a tremor in the right lower extremity with no other activity suggest seizure. None of this was witnessed by myself but this was history provided. Patient well-appearing with a nonfocal neurologic exam. She has EKG showing sinus rhythm. She has CT performed for head injury which is negative for intracranial hemorrhage or mass effect. Chest x-rays negative for acute cardio pulmonary disease. She has leukocytosis which is 15.6 stable for this patient. She has normal white lites, normal kidney function, her hCG is negative. She's 54 white cells in the urine. Culture will be obtained in the patient's treated with antibiotics. Additionally she received IV hydration. She is feeling better. She will have close outpatient follow-up. Return parameters discussed. - Lab Data Result diagrams: 06/05/20 14:06 06/05/20 14:06 Lab Results 06/05/20 06/05/2021 Range/Units 14:06 14:06 14:06 WBC 15.6 H (3.8-10.6) k/uL RBC 4.93 (3.80-5.40) m/uL Hgb 15.0 (11.4-16.0) gm/dL Hct 44.5 (34.0-46.0) % MCV 90.3 (80.0-100.0) fL MCH 30.5 (25.0-35.0) pg MCHC 33.7 (31.0-37.0) g/dL RDW 14.5 (11.5-15.5) % Plt Count 493 H (150-450) k/uL MPV 7.0 Neutrophils % 64 % Lymphocytes % 23 % Monocytes % 7 % Eosinophils % 3 % Basophils % 1 % Neutrophils # 10.0 H (1.3-7.7) k/uL Lymphocytes # 3.6 (1.0-4.8) k/uL Monocytes # 1.0 (0-1.0) k/uL Eosinophils # 0.5 (0-0.7) k/uL Basophils # 0.2 (0-0.2) k/uL PT 10.3 (9.0-12.0) sec INR 1.0 (<1.2) APTT 22.9 (22.0-30.0) sec Sodium (137-145) mmol/L Potassium (3.5-5.1) mmol/L Chloride (98-107) mmol/L Carbon Dioxide (22-30) mmol/L Anion Gap mmol/L BUN (7-17) mg/dL Creatinine (0.52-1.04) mg/dL Est GFR (CKD-EPI)AfAm (>60 ml/min/1.73 sqM) Est GFR (CKD-EPI)NonAf (>60 ml/min/1.73 sqM) Glucose (74-99) mg/dL Calcium (8.4-10.2) mg/dL Magnesium (1.6-2.3) mg/dL Total Bilirubin (0.2-1.3) mg/dL AST (14-36) U/L ALT (4-34) U/L Alkaline Phosphatase (38-126) U/L Troponin I (0.000-0.034) ng/mL Total Protein (6.3-8.2) g/dL Albumin (3.5-5.0) g/dL Urine Color Yellow Urine Appearance Cloudy H (Clear) Urine pH 6.5 (5.0-8.0) Ur Specific [place] 1.037 H (1.001-1.035) Urine Protein 1+ H (Negative) Urine Glucose (UA) Negative (Negative) Urine Ketones Negative (Negative) Urine Blood Large H (Negative) Urine Nitrite Negative (Negative) Urine Bilirubin Negative (Negative) Urine Urobilinogen 3.0 (<2.0) mg/dL Ur Leukocyte Esterase Large H (Negative) Urine RBC 10 H (0-5) /hpf Urine WBC 54 H (0-5) /hpf Urine WBC Clumps Rare H (None) /hpf Ur Squamous Epith Cells 2 (0-4) /hpf Urine Bacteria Rare H (None) /hpf Hyaline Casts 1 (0-2) /lpf Urine Mucus Many H (None) /hpf Urine HCG, Qual (Not Detectd) 06/05/20 06/05/20 06/05/20 Range/Units 14:06 14:06 14:06 WBC (3.8-10.6) k/uL RBC (3.80-5.40) m/uL Hgb (11.4-16.0) gm/dL Hct (34.0-46.0) % MCV (80.0-100.0) fL MCH (25.0-35.0) pg MCHC (31.0-37.0) g/dL RDW (11.5-15.5) % Plt Count (150-450) k/uL MPV Neutrophils % % Lymphocytes % % Monocytes % % Eosinophils % % Basophils % % Neutrophils # (1.3-7.7) k/uL Lymphocytes # (1.0-4.8) k/uL Monocytes # (0-1.0) k/uL Eosinophils # (0-0.7) k/uL Basophils # (0-0.2) k/uL PT (9.0-12.0) sec INR (<1.2) APTT (22.0-30.0) sec Sodium 139 (137-145) mmol/L Potassium 4.3 (3.5-5.1) mmol/L Chloride 104 (98-107) mmol/L Carbon Dioxide 25 (22-30) mmol/L Anion Gap 10 mmol/L BUN 27 H (7-17) mg/dL Creatinine 0.77 (0.52-1.04) mg/dL Est GFR (CKD-EPI)AfAm >90 (>60 ml/min/1.73 sqM) Est GFR (CKD-EPI)NonAf >90 (>60 ml/min/1.73 sqM) Glucose 109 H (74-99) mg/dL Calcium 9.5 (8.4-10.2) mg/dL Magnesium 2.2 (1.6-2.3) mg/dL Total Bilirubin 0.5 (0.2-1.3) mg/dL AST 26 (14-36) U/L ALT 22 (4-34) U/L Alkaline Phosphatase 67 (38-126) U/L Troponin I <0.012 (0.000-0.034) ng/mL Total Protein 8.2 (6.3-8.2) g/dL Albumin 4.7 (3.5-5.0) g/dL Urine Color Urine Appearance (Clear) Urine pH (5.0-8.0) Ur Specific [place] (1.001-1.035) Urine Protein (Negative) Urine Glucose (UA) (Negative) Urine Ketones (Negative) Urine Blood (Negative) Urine Nitrite (Negative) Urine Bilirubin (Negative) Urine Urobilinogen (<2.0) mg/dL Ur Leukocyte Esterase (Negative) Urine RBC (0-5) /hpf Urine WBC (0-5) /hpf Urine WBC Clumps (None) /hpf Ur Squamous Epith Cells (0-4) /hpf Urine Bacteria (None) /hpf Hyaline Casts (0-2) /lpf Urine Mucus (None) /hpf Urine HCG, Qual Not Detected (Not Detectd) Disposition Clinical Impression: Syncope, Dehydration, UTI (urinary tract infection) Disposition: HOME SELF-CARE Condition: Good Instructions (If sedation given, give patient instructions): Dehydration (ED), Syncope (ED), Urinary Tract Infection in Women (ED) Prescriptions: Cephalexin [Keflex] 500 mg PO Q12HR #20 cap Is patient prescribed a controlled substance at d/c from ED?: No Referrals: Macho Ji MD [Primary Care Provider] - 1-2 days Time of Disposition: 15:17
[2020-06-05 14:22] LABS: Basophils # (A) 0.2 k/uL (0-0.2); Basophils % (A) 1 %; Eosinophils # (A) 0.5 k/uL (0-0.7); Eosinophils % (A) 3 %; HCT 44.5 % (34.0-46.0); Lymphocytes # (A) 3.6 k/uL (1.0-4.8); Lymphocytes % (A) 23 %; MCH 30.5 pg (25.0-35.0); MCHC 33.7 g/dL (31.0-37.0); MCV 90.3 fL (80.0-100.0); Monocytes % (A) 7 %; Neutrophils % (A) 64 %; Platelet Count 493 k/uL (150-450); RBC 4.93 m/uL (3.80-5.40); RDW 14.5 % (11.5-15.5); WBC 15.6 k/uL (3.8-10.6)
[2020-06-05 14:26] LABS: Appearance,Urine Cloudy (Clear); Bacteria,Urine Rare /hpf; Bilirubin,Urine Negative (Negative); Blood,Urine Large (Negative); Color,Urine Yellow; Glucose,Urine (UA) Negative (Negative); Hyaline Casts,Urine 1 /lpf (0-2); Ketones,Urine Negative (Negative); Leukocyte Esterase,Urine Large (Negative); Mucus,Urine Many /hpf; Nitrite,Urine Negative (Negative); PH, Urine 6.5 (5.0-8.0); Protein,Urine 1+ (Negative); RBC,Urine 10 /hpf (0-5); Specific Gravity,Urine 1.037 (1.001-1.035); Squamous Epithelial Cell,Urine 2 /hpf (0-4); WBC,Urine 54 /hpf (0-5)
[2020-06-05 14:35] LABS: Partial Thromboplastin Time 22.9 sec (22.0-30.0); Prothrombin Time 10.3 sec (9.0-12.0)
[2020-06-05 14:41] LABS: ALT 22 U/L (4-34); AST 26 U/L (14-36); African American GFR (CKD) >90 (>60 ml/min/1.73 sqM); Albumin 4.7 g/dL (3.5-5.0); Alkaline Phosphatase 67 U/L (38-126); Anion Gap 10 mmol/L; Blood Urea Nitrogen 27 mg/dL (7-17); Calcium 9.5 mg/dL (8.4-10.2); Carbon Dioxide 25 mmol/L (22-30); Chloride 104 mmol/L (98-107); Glucose 109 mg/dL (74-99); Magnesium 2.2 mg/dL (1.6-2.3); Non-African American GFR(CKD) >90 (>60 ml/min/1.73 sqM); Potassium 4.3 mmol/L (3.5-5.1); Sodium 139 mmol/L (137-145); Total Bilirubin 0.5 mg/dL (0.2-1.3); Total Protein 8.2 g/dL (6.3-8.2)
--- NOTE | 2020-06-05 14:51 | XR ---
EXAMINATION TYPE: XR chest 2V DATE OF EXAM: 06/05/2020 COMPARISON: Chest x-ray September 18, 2018. HISTORY: Syncope and weakness. TECHNIQUE: Frontal and lateral views of the chest are obtained. FINDINGS: There is no focal air space opacity, pleural effusion, or pneumothorax seen. The cardiac silhouette size is within normal limits. The osseous structures are intact. IMPRESSION: No acute cardiopulmonary process. No significant change from prior.
--- NOTE | 2020-06-05 14:53 | CT ---
EXAMINATION TYPE: CT brain wo con DATE OF EXAM: 06/05/2020 COMPARISON: MRI brain November 06, 2018 HISTORY: Syncopal episode with posterior injury and headache. CT DLP: 1099.4 mGycm. Automated Exposure Control for Dose Reduction was Utilized. TECHNIQUE: CT scan of the head is performed without contrast. FINDINGS: There is no acute intracranial hemorrhage, mass effect, or midline shift identified. The ventricles and sulci are within normal limits in size. Mahoney-white matter differentiation is maintain ed. Patchy opacification and sclerosis inferior right mastoid air cells redemonstrated. The globes ar e intact and the visualized sinuses are clear. IMPRESSION: No acute intracranial hemorrhage or midline shift is seen. No significant change from re cent MRI study.
[2020-06-05] MEDS ORDERED: cefTRIAXone IN SWFI 1,000 MG/10 ML SYRINGE IVP STA (15:13)
[2020-06-05 15:35] VITALS: BP 118/72; PULSE 74
== END 2020-06-05 15:36 | disposition home or self-care (01) ==
LOC: EC 13:20
DX: E86.0 Dehydration (principal); N39.0 Urinary tract infection, site not specified; R25.1 Tremor, unspecified; D72.829 Elevated white blood cell count, unspecified; S09.90XA Unspecified injury of head, initial encounter; F41.9 Anxiety disorder, unspecified; F31.9 Bipolar disorder, unspecified; F17.200 Nicotine dependence, unspecified, uncomplicated; Z88.0 Allergy status to penicillin; Z91.048 Other nonmedicinal substance allergy status; Z91.018 Allergy to other foods; Z79.899 Other long term (current) drug therapy; W19.XXXA Unspecified fall, initial encounter
CPT/HCPCS: 36415; 93005; 80053; 83735; 84484; 85025; 85610; 85730; 81001; 81025; 71046; 70450; 99285; 96374; 96361; J0696

== ENCOUNTER 2020-06-13 12:42 | Day surgery (SDC) | payer OTHER ==
[2020-06-09 09:34] VITALS: BMI 25.0
[2020-06-13 13:04] VITALS: RESP 16; TEMP 98.1
[2020-06-13] MEDS ORDERED: LACTATED RINGERS 1,000 ML IV ONE (13:15)
[2020-06-13] MEDS ORDERED: fentaNYL (PF) 50 MCG/ML 2 ML AMP ONE (13:43)
[2020-06-13] MEDS ORDERED: IOPAMIDOL M200 10 ML VIAL ONE (13:43)
[2020-06-13] MEDS ORDERED: methylPREDNISolone ACETATE 40 MG/ML 1 ML VIAL ONE (13:43)
[2020-06-13] MEDS ORDERED: MIDAZOLAM 2 MG/2 ML VIAL ONE (13:43)
--- NOTE | 2020-06-13 13:55 | P.PCN ---
Date of Procedure: 06/13/20 Description of Procedure: PREOPERATIVE DIAGNOSIS: Lumbar radiculopathy POSTOPERATIVE DIAGNOSIS: Same PROCEDURE PERFORMED: Interlaminar Epidural Steroid Injection at the l5-s1 level, with a left paramedian approach under fluoroscopic guidance SURGEON: Jose Miguel Grimaldo MD ANESTHESIA: Local with 1% lidocaine 3 ml and IV sedation with Versed and fentanyl, sedation time 7 minutes Fluoroscopy was used for the procedure and images were saved in the radiology portion of the chart. EBL: Minimal PROCEDURE INDICATION: The patient presents with lumbar radicular symptoms unresponsive to conservative treatment. This is the first lumbar epidural PROCEDURE DESCRIPTION / TECHNIQUE: The patient was seen and identified in the preoperative area. Risks, benefits, complications including but not limited to infections ,bleeding ,allergic reaction to the medications ,nerve damage and incomplete pain relief, and alternatives were discussed with the patient. The patient agreed to proceed with the procedure and signed the consent. IV was started, and vital signs were stable. Patient was taken to the OR and time out was completed. The patient was placed in the prone position on procedure table and a pillow was placed under the chest area. The cervical area was prepped and draped in the usual sterile fas hion. Conscious sedation was used during the procedure to decrease patients anxiety. Vital signs was monitored during the entire procedure. Using anterior-posterior fluoroscopy, the [] interlaminar space was identified and the skin over this site was marked and then infiltrated with 1% lidocaine subcutaneously. Subsequently, a 20-gauge Tuohy epidural needle was inserted and advanced toward the epidural space using the loss of resistance technique and guided by AP and lateral views. The correct needle position in the epidural space was verified. After negative aspiration for blood and CSF and in the absence of paresthesias, Isovue 200 2 mL's was injected under live fluoroscopy with good epidural spread. After negative aspiration, a 5 mL mixture containing 40 mg depomedrol, 2 mL PFNS 2 mL 1% lidocaine. Needle was withdrawn intact, skin was cleansed, and bandages were applied. COMPLICATIONS: None DISPOSITION / PLANS: The patient was placed in a supine position and transferred to the recovery area in a stable condition for observation. There was no evidence of lower extremity motor or sensory deficit after the procedure. Patient was discharged from the recovery room after meeting discharge criteria. Home discharge instructions were given to the patient by the staff. The patient will be scheduled a repeat procedure in 2-4 weeks.
[2020-06-13 13:59] VITALS: PULSE 88
[2020-06-13 14:14] VITALS: BP 111/68
[2020-06-13] MEDS ORDERED: IV FLUID CONTINUATION 1,000 ML IV ONE (14:15)
--- NOTE | 2020-06-13 16:32 | FL ---
Fluoroscopy INDICATION: Pain FINDINGS: Fluoroscopy time: 5 seconds. Images obtained: 2. IMPRESSIONS: 1. Documentation of fluoroscopy.
== END 2020-06-13 14:26 | disposition home or self-care (01) ==
LOC: ORPAIN 12:42
PROVIDERS: ATTEND Anesthesiology
DX: M54.16 Radiculopathy, lumbar region (principal); Z88.0 Allergy status to penicillin
CPT/HCPCS: 81025; 62323; J2250; J1030; J3010; Q9966

== ENCOUNTER → 2020-06-19 | Outpatient (CLI) | payer OTHER ==
[2020-06-19 08:00] VITALS: BP 117/82; PULSE 111; RESP 18; TEMP 98.2
--- NOTE | 2020-06-19 08:17 | P.PN ---
Subjective Progress Note Date: 06/19/20 Is a 30-year-old female with history of lower back pain with radiation to the left lower extremity down to the left foot with numbness in the lateral 3 toes. The patient also feels weakness for the last 3 months as she states. She received lumbar epidural steroid injection a few weeks ago which has not i mproved her pain. She failed to respond to physical therapy previously. The patient uses [place] and Neurontin for her pain from her primary care physician. She also admits to using marijuana. Patient denies new-onset weakness, bowel/bladder incontinence, or any other signs or symptoms of cauda equina syndrome. There are no signs of acute intoxication, and no indications of medication diversion or overuse. In addition to above, 13-point review of systems is also negative for chest pain, shortness of breath, changes in vision, changes in hearing, new onset weakness, abdominal pain, diarrhea, extreme fatigue, malaise, fever, skin changes, homicidal or suicidal ideation, or bowel or bladder incontinence. Vital Signs: Reviewed in EMR Gen: AAOx3, NAD HEENT: PERRLA,hearing grossly normal Pulm: resp unlabored Neck: supple, trachea midline Neuro exam of the lower extremities: Absent left ankle reflex but the rest of the reflexes are symmetrical. Decreased left foot muscle strength to 3 out of 5 for flexion and extension and decreased left knee flexion and extension to 4 out of 5. Neuro exam of the right leg. Straight leg raising test: Positive on the left side Lakhwinder's test: Range of motion of the lumbar spine: Facet loading test: Tenderness in the paravertebral musculature: Mild tenderness. There is a fat pad in the lower lumbar area. No signs of infection in the lower back around the needle entry site from the previous lumbar epidural. Neuro: CN II-XII grossly intact, Imaging: Reviewed in EMR/chart Assessment: Left lumbar radiculopathy with neurologic changes in the left leg including absent left ankle reflex and weakness in the left foot Plan: 1. Explanation: Opioid and psychological risk scores were reviewed. Diagnoses, prognoses, and multiple treatment options including but not limited to physical therapy, interventional therapies, adjuvant medical therapies, narcotic medication therapies, and surgery were discussed with the patient and all questions were answered to the patient's satisfaction. 2. Opioid agreement: Signed with the patient and the patient is warned not to use opioids while driving or before driving and not to combine opioids with benzodiazepines or alcohol. 3. Counseling: The patient was counseled extensively on SMOKING CESSATION, BODY MASS INDEX, EXERCISE. Specifically, the patient was instructed regarding the importance of smoking cessation, obesity, and exercise in the context of both chronic pain and overall health. 4. Procedures: Schedule for transforaminal epidural steroid injection at the L4 5 level on the left side 5. Consultations: refer to back surgeon as soon as possible 6. Investigations: None 7. Medications: None 8. Disposition: Return to clinic in 4 weeks and to the above-mentioned procedure as soon as possible 9. Maps were reviewed and were appropriate. Objective - Vital Signs Vital signs: Vital Signs Temp 98.2 F 06/19/20 07:54 Pulse 111 H 06/19/20 07:54 Resp 18 06/19/20 07:54 BP 117/82 06/19/20 07:54 Pulse Ox 97 06/19/20 07:54
== END | disposition home or self-care (01) ==
LOC: PNWHC3 07:49
PROVIDERS: ATTEND Anesthesiology
DX: M54.16 Radiculopathy, lumbar region (principal)
CPT/HCPCS: 99211

== ENCOUNTER 2020-07-04 11:46 | Day surgery (SDC) | payer OTHER ==
[2020-06-30 11:44] VITALS: BMI 24.9
[~2020-07-04 11:46] MED LIST: LACTATED RINGERS 1,000 ML IV SCH
[2020-07-04] MEDS ORDERED: LIDOCAINE 1% (10MG/ML) FOR IV START INTRADERMA ONE (12:24)
[2020-07-04 12:28] VITALS: RESP 16; TEMP 98
[2020-07-04] MEDS ORDERED: IOPAMIDOL M200 10 ML VIAL ONE (12:43)
[2020-07-04] MEDS ORDERED: fentaNYL (PF) 50 MCG/ML 2 ML AMP ONE (12:43)
[2020-07-04] MEDS ORDERED: methylPREDNISolone ACETATE 40 MG/ML 1 ML VIAL ONE (12:43)
[2020-07-04] MEDS ORDERED: MIDAZOLAM 2 MG/2 ML VIAL ONE (12:43)
--- NOTE | 2020-07-04 12:58 | P.PCN ---
Date of Procedure: 07/04/20 Procedure(s) Performed: PREOPERATIVE DIAGNOSIS: Lumbar radiculopathy . POSTOPERATIVE DIAGNOSIS: Same as preoperative diagnoses. PROCEDURE 1. Transforaminal epidural steroid injection under fluoroscopic guidance at left L5-S1 level. (Fluoroscopy images stored on file in the radiology Department ) 2. Lumbar epidurogram . ANESTHESIA: Local with 1% lidocaine 3 ml , moderate sedation with intravenous Versed 2 mg and fentanyle 100 micrograms. EBL: Minimal PROCEDURE INDICATION: The patient with low back pain and radiculopathy symptoms unresponsive to conservative treatment. PROCEDURE DESCRIPTION / TECHNIQUE: The patient was seen and identified in the preoperative area. Risks, benefits, complications, and alternatives were discussed with the patient. The patient agreed to proceed with the procedure and signed the consent. IV was started, and vital signs were stable. Patient was taken to the OR and time out was completed. The patient was placed in the prone position on procedure table and a pillow was placed under the abdomen to reduce lumbar lordosis. The lumbosacral area was prepped and draped in the usual sterile fashion. Critical pause was taken. Vital signs were closely monitored during the procedure. Conscious sedation was used during the procedure to decrease patient s anxiety. Using oblique fluoroscopy, the chin of the ``Ramsey dog at left L5-S1 level was identified, and the skin and deeper tissues just below was localized with 1% lidocaine. Subsequently, a 22-gauge 3.5-inch spinal needle was advanced under a tunneled view fluoroscopic guidance just underneath the chin of the ``Ramsey dog at the left L5-S1 Under lateral fluoroscopy, the needle was then advanced to the posterior border of the interforaminal space. After negative aspiration of CSF and blood and with no paresthesias, 1 mL Isovue 200 contrast dye was injected excellent epidurogram and outlining of the nerve root Subsequently, 3 mL of block solution containing 80 mg Depo-Medrol and 2 mL of 0.9% normal saline PF was injected. Needle was removed . At the end of the procedure, skin was cleansed, and bandages were applied. COMPLICATIONS:none DISPOSITION / PLANS: The patient was placed in a supine position and transferred to the recovery area in a stable condition for observation. There was no evidence of lower extremity motor or sensory deficit after the procedure. Patient was discharged from the recovery room after meeting discharge criteria. Home discharge instructions were given to the patient by the staff. The patient was reexamined prior to discharge.
[2020-07-04] MEDS ORDERED: IV FLUID CONTINUATION 1,000 ML IV ONE (13:09)
[2020-07-04 13:14] VITALS: BP 116/80; PULSE 76
--- NOTE | 2020-07-04 14:45 | FL ---
Fluoroscopy HISTORY: Pain 6 seconds fluoroscopy time supplied to the referring clinician. 1 intraoperative C-arm images docume nt the procedure. See dictated report from anesthesia.
== END 2020-07-04 13:54 | disposition home or self-care (01) ==
LOC: ORPAIN 11:46
PROVIDERS: ATTEND Specialist
DX: M54.16 Radiculopathy, lumbar region (principal); Z88.0 Allergy status to penicillin; Z91.018 Allergy to other foods
CPT/HCPCS: 81025; 64483; J2250; J1030; J3010; Q9966; 99152

== ENCOUNTER → 2020-07-21 | Outpatient (CLI) | payer OTHER ==
--- NOTE | 2020-07-21 14:09 | MR ---
EXAMINATION TYPE: MR lumbar spine wo con DATE OF EXAM: 07/21/2020 1:51 PM COMPARISON: 02/02/2020 HISTORY: Low back pain radiating into left leg Multiplanar, MultiSpin echo imaging of the lumbar spine was performed. L1-L2: Normal disc appearance without desiccation. No herniation, protrusion or disc bulging. No ca nal stenosis is present. Foramina are patent bilaterally. L2-L3: Normal disc appearance without desiccation. No herniation, protrusion or disc bulging. No ca nal stenosis is present. Foramina are patent bilaterally. L3-L4: Normal disc appearance without desiccation. No herniation, protrusion or disc bulging. No ca nal stenosis is present. Foramina are patent bilaterally. L4-L5: Normal disc appearance without desiccation. No herniation, protrusion or disc bulging. No ca nal stenosis is present. Foramina are patent bilaterally. L5-S1: Severe disc desiccation noted. There is an extruded disc herniation posterocentral into the le ft measuring 2.1 cm in transverse dimension by approximately 8 mm in AP dimension. Herniation previou sly measured approximately 6 mm x 4 mm. There is left lateral recess stenosis and left foraminal encr oachment. Lumbar segments are intact. No paraspinal masses are identified. Conus medullaris has a normal appe arance. IMPRESSION: 1. Progressive Large extruded disc herniation at L5-S1 with sequestered component difficult to exclud e. Left lateral recess stenosis and left foraminal encroachment.
== END | disposition home or self-care (01) ==
LOC: RADMRIMAIN 13:16
PROVIDERS: ATTEND Orthopaedic Surgery
DX: M51.26 Other intervertebral disc displacement, lumbar region (principal); M48.061 Spinal stenosis, lumbar region without neurogenic claudication
CPT/HCPCS: 72148

== ENCOUNTER → 2020-07-31 | Outpatient (CLI) | payer OTHER | END | disposition home or self-care (01) | LOC: LABPAT 15:18 | PROVIDERS: ATTEND Orthopaedic Surgery | DX: Z01.812 Encounter for preprocedural laboratory examination (principal) | CPT/HCPCS: 36415; 86850; 86900; 86901; 87070 ==

== ENCOUNTER 2020-08-04 10:47 | Day surgery (SDC) | payer OTHER ==
[2020-07-28 10:07] VITALS: BMI 26.6
--- NOTE | 2020-08-04 09:01 | P.HPOR ---
History of Present Illness H&P Date: 07/28/20 Chief Complaint: Back pain and LLE pain This 30 year old female presents with low back pain. Patient denies any specific injury. She states that she has had low back pain for 15 years with an increase in pain over the past 3 months. Patient was seen by her primary care physician and an MRI was ordered . She was referred to Pain Management and has had 1 steroid injection with no relief. Patient reports low back pain that radiates down her left leg. She notes numbness in her left foot. She denies any bowel or bladder problems. She denies any genital region numbness. Patient is taking [place] 5mg, Neurontin 100mg three times a day,and Motrin 600mg twice a day for pain. Patient is ambulating independently. she denies any bowel bladder issues.This 30 year old female presents with today for a follow up on her L5-S1 disc herniation. She had a L5-S1 transforaminal injection on 07/04/2020 with minimal relief. She notes that she did get some relief of her left foot numbness. She notes that she continues to have left leg pain. Patient is taking Motrin, Neurontin, [place] and Flexeril without resolution of her symptoms. Patient is ambulating independently. she states that she really would like the surgical intervention as as this is been going on since January and does not seem to be getting any better. She denies any bowel bladder issues. She denies any perineal numbness or tingling. Review of Systems Constitutional: Reports as per HPI Past Medical History Past Medical History: Asthma, Musculoskeletal Disorder Additional Past Medical History / Comment(s): ovarian cyst, back pain History of Any Multi-Drug Resistant Organisms: None Reported Past Surgical History: Section Additional Past Surgical History / Comment(s): cysts removed from ovaries, pain procedures Past Anesthesia/Blood Transfusion Reactions: No Reported Reaction Smoking Status: Current every day smoker - Past Family History Mother Family Medical History: No Reported History Additional Family Medical History / Comment(s): no hx of family medical problems Medications and Allergies Home Medications Medication Instructions Recorded Confirmed Type HYDROcodone/APAP 5-325MG [[place] 1 tab PO DAILY PRN 04/10/20 07/28/20 History 5-325] Gabapentin [Neurontin] 300 mg PO TID 06/05/20 07/28/20 History Albuterol Inhaler [Ventolin Hfa 2 puff INHALATION RT-QID PRN 06/09/20 07/28/20 History Inhaler] tiZANidine [Zanaflex] 4 mg PO TID 06/30/20 07/28/20 History DULoxetine HCL [Cymbalta] 30 mg PO DAILY 07/28/20 07/28/20 History Allergies Allergy/AdvReac Type Severity Reaction Status Date / Time Penicillins Allergy Unknown Verified 07/28/20 09:36 Childhood pollen extracts Allergy Unknown Verified 07/28/20 09:36 tomato Allergy Unknown Verified 07/28/20 09:36 venom-honey bee Allergy Unknown Verified 07/28/20 09:36 [bee venom (honey bee)] Physical Examination Osteopathic Statement: *. No significant issues noted on an osteopathic structural exam other than those noted in the History and Physical/Consult. General: Awake, alert, appropriate for age, in no acute distress. HEENT: No unusual neck masses around region of lateral neck triangle, thyroid, supraclavicular groove Heart: Regular rate and rhythm, normal S1, S2 and no murmur/gallop. Lungs: Clear to auscultation bilaterally with no use of accessory muscles. Extremities: Skin warm and dry without acute lesions, coloration, temperature, skin intact, no tenderness or erythema she appears slightly unkempt. her clothes are very dirty. heavy smell of smoke Integument: Hairy patches: Absent Dorsal skin dimples: Absent Cafe au lait spots: Absent Surgical incisions: none Palpation: Please see Pain drawing on Intake sheet for further detail. Midline spinal tenderness: yes lumbar E6 Paralumbar tenderness: No E6 Parathoracic tenderness: No E6 Buttocks tenderness: No E6 Special findings: none POSTURAL and MUSCULO-SKELETAL EVALUATION: Coronal Balance: Neutral Recumbent testing: Patient is able to lay flat on back Sagittal Balance: Neutral Shoulder Profile: level Pelvic Girdle: level Neck ROM: Unrestricted Lumbar ROM: Unrestricted Shoulder ROM: Symmetric in abduction, ER/IR Hip ROM: Symmetric in abduction, adduction, ER/IR Knee ROM: Symmetric and intact in Flexion / extension Hands: Normal Feet: Normal VASCULAR STATUS : LEFT RIGHT Wrist Pulses intact intact Pedal Pulses (Dors. pedis & post.tibialis) intact intact Color normal normal Edema Absent Absent NEUROLOGIC EXAMINATION: Mental Status: Awake and alert, fully oriented, with normal attention, concentration and memory, and fluent, appropriate speech. Cranial Nerves: I: Olfactory not tested. II: Visual acuity normal, no visual field deficit noted with confrontation. III,IV: Normal pupillary reflexes & intact extraocular movements without nystagmus. V,: Intact symmetrical facial sensation. VII: Intact symmetrical facial motor movement VIII: Hearing intact. IX,X: Intact gag, swallow, & normal voice. XI: Sternocleidomastoid, trapezius function intact. XII: Tongue midline with normal movements. L'hermitte's Sign: Negative / absent Spurling'Sign: Absent bilaterally. Cubital percussion test: Absent bilaterally. Jeff-Tinel sign - Carpal region: Absent bilaterally. Straight Leg Raising: positive Crossed straight leg raise: negative MOTOR EXAM (0-5/5, N/T) STRENGTH RIGHT LEFT Shoulder Abd (not part of the LAMONTE score) 5 5 Elbow Flexors 5 5 Elbow Extensor 5 5 Wrist Dorsiflexors 5 5 Finger Abductor 5 5 Animation Artist 5 5 Hip Flexor (Not part of LAMONTE Motor score) 5 5 Knee Flexor 5 5 Knee Extensor 5 5 Ankle dorsiflexor 5 5 Ankle plantarflexion 5 5 Extensor hallucis 5 5 REFLEXES(0-4/2, NT) RIGHT LEFT Upper Extremities 2 2 Lower Extremities 2 2 Pathological Reflexes RIGHT LEFT Doss's Absent Absent Clonus Absent Absent # Indicates mechanical impairment Muscle appearance: Normal Rectal Tone: Deferred Sensory system (0-4, N/T) Test type RU CLAUDIA RL LL Joint-Position 2 2 2 2 Vibration 2 2 2 2 Pain & LT sense 2 2 2 2 Dermatomal Deficit: none none none none Gait and Functional Evaluation: Ambulatory aids: Independent Romberg's test: Intact bilaterally Toe heel walk / heel-toe walk intact while maintaining satisfactory balance? yes Squatting/straightening w/o assistance to a min of 60 degree knee flexion? yes Single leg stance: intact Trendelenburg sign negative bilaterally Hand and finger dexterity intact bilaterally? yes Disdiadochokinesis examination negative bilaterally? yes Results XRAY: of the lumbar spine and pelvis today reveal: overall well-maintained alignment slightly hypertensive lordotic in nature L5-S1 minor spondylosis no fracture dislocation or lesion noted AP pelvis demonstrates level pelvis congruent joints no fracture dislocation MRI of the lumbar spine from 02/02/2020 reveals: moderate-sized L5-S1 left-sided paracentral disc herniation as dislocations or lesions CT of the lumbar spine from 04/10/2020 reveals: L5-S1 spondylosis with moderate sized L5-S1 left sided paracentral disc herniation no other fractures or dislocation Assessment and Plan Assessment: 30 yo female L5-S1 HNP with stenosis and radiculopathy Plan: Spine Surgery Risk Review Rebecca Mock is a 30-year-old female presenting for evaluation of back pain with left lower extremity pain and weakness. It was my pleasure to have seen and examined SARAH Mock. In our visit today we have had a chance to go over subjective complaints, physical examination findings and treatments including the natural course history without intervention and various interventional options. The patients imaging demonstrates L5-S1 herniated nucleus pulposus larger severe stenosis. On physical exam, Rebecca Mock demonstrates tensioning signs left lower extremity low back pain weakness left lower extremity. I have explained to the patient that as their condition progresses it will cause further neurological deficits and eventual paralysis. Based on the patients imaging, physical exam, and the rapid progression and disabling nature of their symptoms, at this time I recommend surgery in the form or a: L5-S1 bilateral laminotomy decompression discectomy. I discussed the risk and benefits of this procedure at length with Rebecca Mock. The patient agreed to considered pursuing the procedure abovementioned. Prior to surgery, she should follow up with her PCP (Cardio, ID, IM etc) for clearance. Questions were invited and answered, and the patient wishes to proceed as outlined below. Currently, I am recommendin. L5-S1 bilateral laminotomy decompression with microdiscectomy 2. Follow up with PCP for surgical clearance 3. Review of surgical risks and benefits as well as an educational packet on the proposed surgical procedure. Risks: All surgical procedures come with inherent risks, including those related to positioning, anesthesia, intraoperative findings, and postoperative complicatio ns. It is important to understand that surgery does not come with any guarantee of a successful outcome as complications and adverse events are always possible. The patient was given a handout in office today discussing the surgical procedure and risks associated with the intervention, both of which were discussed with the patient. These risks include but are not limited to the following: * Experiencing same, different or even worse symptoms in back, neck, arms, or legs compared to before surgery. * Requiring further surgery or other forms of treatment presently or at some time in the future at same or other levels of the intended spine surgery. * On an extreme but fortunately relatively rare basis severe complication such as blindness, stroke, heart attack, temporary and/or permanent nerve injury, paralysis, coma, or may occur, sometimes without known explanation. * Surgical complications may include but are not limited to risk of infection, fluid accumulation in the surgical dissection site, including a seroma or hematoma, that requires additional surgery, wound drainage, bleeding, new numbness or weakness, vision changes/loss, spinal fluid leakage, non-healing and/or infected incision, headaches, difficulty or inability to swallow, hoarseness, hemopneumothorax, pneumothorax, impotence, retrograde ejaculation, vaginal dryness; injury to nerves, spinal cord, blood vessels, lymphatics or other vital organs (i.e., bowel injury, injury to the great vessels); heterotopic bone formation; complications related to the hardware such as screws, rods, cages including misplaced hardware, device failure, instrumentation at the wrong spine level, hardware fracture/breakage, or hardware loosening; vertebral failure of the spinal column above or below the newly placed hardware; retained surgical instrumentations or devices and the need for further surgery. * Medical risks of the planned spine surgery include but are not limited to generalized Infections to the whole body or local areas outside of the surgical site (sepsis), heart attack, bleeding, anaphylaxis, meningitis, seizure, epilepsy, hearing loss, burn moulton, laceration of the head or other areas of the body, bruising, hypersensitivity of the skin, bladder over distension; allergic reaction; shoulder injury related to positioning; fat, blood and air clots to other areas of the body like heart, lungs, brain; failure of internal organs such as lungs, kidneys, liver and excessive bleeding. If blood transfusions are necessary, note that transfusions may cause intolerance reactions such as anaphylaxis or other complex reactions. * Despite best efforts, the results of spine surgery might not heal in terms of bone, soft tissues such as skin, fascia, ligaments, and joints. Additionally, in order to achieve best possible results, spine surgery may be carried out beyond the initially planned levels and involve decompression, fusion including insertion of hardware at levels other than the original intended area of surgical interest change some portions of the procedure in order to ensure the best possible outcomes. * With spine surgery and spinal fusion, there are different off label uses of instrumentation (devices, implants and hardware) as well as biological substances (bone morphogenic proteins, demineralized bone matrix) as well as using extra bone from allograft sources (i.e. cadaver bone) or autograft (iliac crest bone, ribs, or the spine itself). The patient has been given information about these practices and their inherent risks and benefits. * [facility] is an educational center that serves as a training facility for neurosurgical and orthopedic spine residents and fellows. Residents are physicians who are completing their surgical intensive training following medical school. They assist in the operating room with direct supervision of the attending surgeons. [place] are surgeons who have completed their training and eligible for board certification. They have opted for an elective year of more specialized training in their field. They assist in the operating room under the supervision of the attending surgeons. Physician assistants are medically trained surgical providers who function in the outpatient, inpatient, and operating room setting under the direct supervision of the attending surgeon. * [facility] has multiple operating rooms with single and overlapping rooms running daily. They currently function under the required guidelines as produced by the [facility] Finance Committee with regards to the overlapping rooms and will continue to comply with changes to this policy as they occur. The requirements include and are complied with as follows: (1) the critical portions of the overlapping rooms will not occur at the same time, (2) the attending physician will be physically present during the critical portions of the procedure and immediately available during the entire case, and (3) a back-up attending is designated should the primary attending not be immediately available. The patient has had a chance to review all the listed information, has been given print outs detailing this information, and has had all his/her questions answered to their satisfaction. It was my pleasure to have seen and examined Rebecca Mock. In our visit today we have had a chance to go over my understanding of our patient's current condition, the natural course history without intervention and various interventional options. Questions were invited and answered, and the patient wishes to proceed as outlined above. I have seen and examined the patient for 25 minutes and we have spent more than 50% of the time in repeat and detailed counseling about the patient's condition, its natural course history with out and as much as can be predicted with surgery and re-review of various surgical treatment options. In conclusion, Rebecca Nish and requested we proceed with the above suggested surgery and are willing to accept risks and limitations of the suggested surgery as nature of the disease process and our best attempts at treatment for the condition. Thank you again for allowing us to be part of your patient's care. Please don't hesitate to contact me if you have any further questions. Signed and authenticated by: [facility] [address], [address] [address]
[~2020-08-04 10:47] MED LIST changes: +DEXAMETHASONE SOD PHOSPHATE 4 MG/ML 1 ML VIAL IV ONE; +HYDROmorphone 0.5 MG/0.5 ML SYRINGE IVP PRN; +LIDOCAINE 1% (10MG/ML) FOR IV START INTRADERMA PRN; +MIDAZOLAM 2 MG/2 ML VIAL IV PRN; +ONDANSETRON 4 MG/2 ML VIAL IVP ONE
[2020-08-04 11:16] VITALS: RESP 16
[2020-08-04] MEDS ORDERED: LIDOCAINE 1% INJ 10MG/ML (20 ML MDV) ONE (12:20)
[2020-08-04] MEDS ORDERED: HYDROmorphone (PF) 1 MG/ML ONE (12:20)
[2020-08-04] MEDS ORDERED: fentaNYL (PF) 50 MCG/ML 2 ML AMP ONE (12:20)
[2020-08-04] MEDS ORDERED: KETOROLAC 15 MG/ML 1 ML VIAL ONE (12:20)
[2020-08-04] MEDS ORDERED: SUCCINYLCHOLINE CHLORIDE 100 MG/5 ML SYR IV ONE (12:20)
[2020-08-04] MEDS ORDERED: NEOSTIGMINE 1 MG/ML 10 ML VIAL ONE (12:20)
[2020-08-04] MEDS ORDERED: GLYCOPYRROLATE 0.2 MG/ML 2 ML VIAL ONE (12:20)
[2020-08-04] MEDS ORDERED: ROCURONIUM 10 MG/ML (5 ML VIAL) IV ONE (12:20)
[2020-08-04] MEDS ORDERED: MIDAZOLAM 2 MG/2 ML VIAL ONE (12:20)
[2020-08-04] MEDS ORDERED: KETAMINE 10 MG/ML 20 ML VIAL ONE (12:20)
[2020-08-04] MEDS ORDERED: PROPOFOL 10 MG/ML 20 ML VIAL IV ONE (12:20)
[2020-08-04] MEDS ORDERED: TRIAMCINOLONE ACETONIDE 40 MG/ML 1 ML VIAL INTRAARTIC ONE (13:00)
[2020-08-04] MEDS ORDERED: GELATIN SPONGE,ABSORB (LARGE) 1 EACH SPONGE TOPICAL ONE (13:20)
[2020-08-04] MEDS ORDERED: BUPIVACAINE (PF) 0.25% 30 ML VIAL SQ ONE (13:22)
[2020-08-04] MEDS ORDERED: THROMBIN (BOVINE) 5,000 UNIT VIAL TOPICAL ONE (13:22)
[2020-08-04] MEDS ORDERED: LIDOCAINE 2%-EPI 1:100,000 20 ML VIAL SQ ONE (13:22)
[2020-08-04] MEDS ORDERED: CEFAZOLIN IRRIGATION ONE (13:27)
[2020-08-04] MEDS ORDERED: SODIUM CHLORIDE 0.9% IRRIGATION ONE (13:27)
--- NOTE | 2020-08-04 14:44 | FL ---
Fluoroscopy HISTORY: Lumbar laminectomy 19 seconds fluoroscopy time supplied to the referring clinician. 1 intraoperative C-arm images docum ent the procedure. See dictated report from orthopedic surgery.
[2020-08-04] MEDS ORDERED: TRIAMCINOLONE ACETONIDE 40 MG/ML 1 ML VIAL INTRADERMA ONE (14:49)
[2020-08-04] MEDS ORDERED: VANCOMYCIN 1,000 MG VIAL MISCELLANE ONE (14:58)
[2020-08-04 15:40] VITALS: TEMP 98
--- NOTE | 2020-08-04 15:49 | P.OP ---
Date of Procedure: 08/04/20 Preoperative Diagnosis: 1. L5-S1 HNP with stenosis 2. LLE radiculopathy Postoperative Diagnosis: 1. L5-S1 HNP with stenosis 2. LLE radiculopathy Procedure(s) Performed: 1. L5-S1 bilateral laminotomy, partial facetectomy, foraminotomy b/l 2. L5-S1 microdiscectomy 3. Use of intraoperative microscope Implants: None Anesthesia: ALICE Surgeon: Marquis Davalos Pearl Peller #1: Alejandro Gold (Was present for the entire case and was necessary due to the complexity of the case. ) Estimated Blood Loss (ml): 25 IV fluids (ml): 1,200 Urine output (ml): 0 Pathology: none sent Condition: stable Disposition: PACU Indications for Procedure: This 30 year old female presents with low back pain. Patient denies any specific injury. She states that she has had low back pain for 15 years with an increase in pain over the past 3 months. Patient was seen by her primary care physician and an MRI was ordered . She was referred to Pain Management and has had 1 steroid injection with no relief. Patient reports low back pain that radiates down her left leg. She notes numbness in her left foot. She denies any bowel or bladder problems. She denies any genital region numbness. Patient is taking Midwest 5mg, Neurontin 100mg three times a day,and Motrin 600mg twice a day for pain. Patient is ambulating independently. she denies any bowel bladder issues.This 30 year old female presents with today for a follow up on her L5-S1 disc herniation. She had a L5-S1 transforaminal injection on 07/04/2020 with minimal relief. She notes that she did get some relief of her left foot numbness. She notes that she continues to have left leg pain. Patient is taking Motrin, Neurontin, Midwest and Flexeril without resolution of her symptoms. Patient is ambulating independently. she states that she really would like the surgical intervention as as this is been going on since January and does not seem to be getting any better. She denies any bowel bladder issues. She denies any perineal numbness or tingling. Operative Findings: Large L5-S1 HNP with stenosis Description of Procedure: The patient was seen and examined in the preoperative area. All preoperative protocols were followed. Informed consent was obtained risks and benefits of the procedure were discussed at length. Risks including bleeding infection damage to the surrounding tissue and risk of reoperation were discussed with the patient. Risk of anesthesia up to and including was a discussed with the patient. These are outlined in the risk review. They were willing to accept these risks and all of the risks of surgery. The patient was given a weight- based dose of antibiotics in the form of 2 g Ancef IVPB 1. The patient was seen and evaluated by the anesthesia team who deemed them fit for surgery. The site was marked, the patient was willing to proceed with the procedure. The patient was transferred to the operative suite by the Department of anesthesia. They were then drifted off to sleep by the department anesthesia GETA. The patient tolerated this well. OG tube was placed and the patient was noted to have large chunks of food still in her stomach likely from her eating prior to surgery. Anesthesia made a note of this. Once confirmation of lines and ventilation the patient was transferred to a prone Wilfredo Elias table very carefully. All bony prominences including wrists, elbows, axilla, chest, hips, and thighs, and feet were padded very well. Special attention was paid to the genitalia and these were padded accordingly. SCDs were placed on bilateral lower extremities and were connected. Arms were well padded and placed [on arm boards up and out in the 90/90 position]. Once in position, again we confirmed good ventilation capabilities and that lines were running appropriately. The patient's lumbar spine was then exposed. 1010s were placed outlining the incision site. Standard alcohol was used to clean the incision site and allowed to dry. C-arm was used to biomark the patient and confirm level for incision which was marked with a skin marker. Operative briefing was performed with all teams and everyone in agreement to proceed. The patient was then prepped and draped in a normal sterile fashion. Timeout was then performed and all parties were in agreement with the procedure to be performed. Skin incision was made over the previously by Feroz area. Left cautery dissection was taken down to the L5 spinous process which was identified. Midline fasciotomy was made in the lumbosacral fascia midline. Bilateral subperiosteal dissection was then performed and meticulous hemostasis ensued. The L5-S1 region was identified. Stanley 4 was used in a lateral fluoroscopy shot to identify the pars of L5 and the disc space of L5-S1 once this was confirmed microscope was brought in and a left-sided hemilaminotomy was performed as well as a partial medial facetectomy and foraminotomy. The ligamentum flavum was removed in its entirety and the dura and traversing S1 roots were protected medially with a nerve root retractor. Stanley 4 was used for careful blunt dissection over the large herniated disc in this area micro- discectomy then ensued with a micropituitary. Annulotomy was made using a 15 blade a micropituitary used to remove excess disc material within the canal. Down-biting curet was used to clear anything from the foramen laterally. Irrigation of the disc space then was performed which allowed visualization and removal of further herniated disc material. 3 Kerrison was then used to widen the foraminotomy around the S1 nerve root as well as L5 nerve root. Coffey probe confirmed good foraminotomies area and attention was then drawn to the right side and a right-sided laminotomy R some medial facetectomy and foraminotomy was performed using a high-speed bur Kerrison rongeur. There was no disc herniation on this side and the disc was visualized and intact. We then irrigated the wound with 3 L of sterile saline with antibiotic. We inspected again there was meticulous hemostasis was performed bone wax was placed on open bone edges. We then placed 40 mg of Decadron deep split between the 2 laminotomy sites. Surgicel was then placed over the dura and deep to allow for hemostasis. 2 g of vancomycin powder replaced in the wound. The fascia was then closed with #1 Vicryl followed by a running unidirectional strata fix. Layered closure then ensued Camper's and Quiana's fascia closed with an 0 running strata fix and the subcu tissue closed with an 0 running strata fix unidirectional as well. Skin edges were then closed with 2-0 nylon in a running fashion and the edges approximated very well. Prior to skin closure Cellerate was placed deep within the wound to facilitate healing. The wound was then cleaned sterilely and dressed with a sterile op ti foam The patient was transferred back to her hospital bed atraumatically. Patient was then awakened and extubated by the department of anesthesia having tolerated the procedure very well with no complications. She was transferred to the postoperative care unit in stable condition.
[2020-08-04] MEDS ORDERED: LACTATED RINGERS 1,000 ML IV ONE ×2 (15:51)
[2020-08-04] MEDS ORDERED: HYDROcodone/APAP 5-325MG 1 EACH TAB ONE (16:42)
[2020-08-04] MEDS ORDERED: HYDROcodone/APAP 5-325MG 1 EACH TAB PO ONE (16:45)
[2020-08-04 17:18] VITALS: BP 121/80; PULSE 76
== END 2020-08-04 17:24 | disposition home or self-care (01) ==
LOC: OR 10:47
PROVIDERS: ATTEND Orthopaedic Surgery
DX: M51.17 Intervertebral disc disorders with radiculopathy, lumbosacral region (principal); M48.07 Spinal stenosis, lumbosacral region; J45.909 Unspecified asthma, uncomplicated; F17.200 Nicotine dependence, unspecified, uncomplicated; Z98.890 Other specified postprocedural states; Z88.0 Allergy status to penicillin; Z79.899 Other long term (current) drug therapy; Z79.1 Long term (current) use of non-steroidal anti-inflammatories (NSAID); Z79.891 Long term (current) use of opiate analgesic; Z87.42 Personal history of other diseases of the female genital tract; Z91.048 Other nonmedicinal substance allergy status; Z91.018 Allergy to other foods; Z91.030 Bee allergy status
CPT/HCPCS: 81025; 72100; 63030; C1762 ×2; J2250; J3370; J3301; J2710; J0690 ×2; J2405; J2001; J3010; J1170 ×2; J1885; J0330; J2704; 36415; 86850; 86900; 86901

== ENCOUNTER → 2020-09-27 | Outpatient (CLI) | payer OTHER ==
--- NOTE | 2020-09-27 14:11 | XR ---
EXAMINATION TYPE: XR chest 2V DATE OF EXAM: 09/27/2020 COMPARISON: Chest x-ray June 05, 2020 HISTORY: Asthma. TECHNIQUE: Frontal and lateral views of the chest are obtained. FINDINGS: There is no suspicious new focal air space opacity, pleural effusion, or pneumothorax seen . Artifact from close positioning of the bilateral upper extremities and the lateral lungs is noted. The cardiac silhouette size is stable and within normal limits. The osseous structures are intact. IMPRESSION: No acute cardiopulmonary process. No significant change from prior.
== END | disposition home or self-care (01) ==
LOC: RADXRMAIN 13:45
PROVIDERS: ATTEND Internal Medicine Hematology & Oncology
DX: J45.909 Unspecified asthma, uncomplicated (principal)
CPT/HCPCS: 71046

== ENCOUNTER 2021-02-20 10:34 | Outpatient (CLI) | payer OTHER ==
[2021-02-20 11:02] LABS: Amorphous Sediment,Urine Occasional /hpf; Appearance,Urine Cloudy (Clear); Bilirubin,Urine Negative (Negative); Blood,Urine Negative (Negative); Color,Urine Yellow; Glucose,Urine (UA) Negative (Negative); Ketones,Urine Negative (Negative); Leukocyte Esterase,Urine Large (Negative); Mucus,Urine Few /hpf; Nitrite,Urine Negative (Negative); Protein,Urine Trace (Negative); RBC,Urine 2 /hpf (0-5); Specific Gravity,Urine 1.023 (1.001-1.035); Squamous Epithelial Cell,Urine 11 /hpf (0-4); WBC,Urine 6 /hpf (0-5)
[2021-02-20 11:49] LABS: Amphetamine Screen,Urine Not Detected (NotDetected); Barbiturate Screen,Urine Not Detected (NotDetected); Benzodiazepines Screen,Urine Not Detected (NotDetected); Cocaine Screen,Urine Not Detected (NotDetected); Methadone Screen, Urine Not Detected (NotDetected); Opiate Screen,Urine Detected (NotDetected); Oxycodone Screen, Urine Not Detected (NotDetected); Phencyclidine Screen,Urine Not Detected (NotDetected); Tricyclic Antidepressant,Urine Not Detected (NotDetected); Urn Cannabinoid Scrn Detected (NotDetected)
[2021-02-20 12:24] VITALS: BP 136/68; PULSE 111; RESP 17; TEMP 96.3
--- NOTE | 2021-03-07 07:44 | P.MSEPDOC ---
Presenting Problems - Arrival Data Date of Arrival on Unit: 02/20/21 Time of Arrival on Unit: 10:34 Mode of Transport: Wheelchair - Complaint OB-Reason for Admission/Chief Complaint: Pain Comment: left groin pain that is constant Medical History - Information : 4 Para: 3 Term: 1 : 2 Abortions: Spontaneous or Elective: 0 Number of Living Children: 3 - Gestational Age Gestational Age by JEANIE (wks/days): 25 Weeks and 0 Days - History Complications: Prior , Smoker Review of Systems - Review of Systems Constitutional: No problems Breast: No problems ENT: No problems Cardiovascular: No problems Respiratory: No problems Gastrointestinal: No problems Genitourinary: No problems Musculoskeletal: No problems Neurological: No problems Skin: No problems Vital Signs - Temperature Temperature: 96.3 F Temperature Source: Temporal Artery Scan - Pulse Right Brachial Pulse Rate: 111 Pulse Assessment Method: Automatic Cuff - Respirations Respiratory Rate: 17 Oxygen Delivery Method: Room Air O2 Sat by Pulse Oximetry: 97 - Blood Pressure Right Arm Blood Pressure: 136/68 Blood Pressure Mean: 90 Blood Pressure Source: Automatic Cuff Medical Screen Scoring - Cervical Exam Dilation (cm): 0 Station: -5 Membranes: Intact - Uterine Contractions Frequency From (mins): 0 - Assessment - Baby A Baseline FHR: 140 Heart Rate - NICHD Category: Category I (Normal) Physician Notification - Physician Notified Physician Notified Date: 02/20/21 Physician Notified Time: 11:19 Physician: Karla Gonzales Order Received: Yes - Notification Comment Comment: cervix closed/thick/high, abd soft to palpation, ua results given, orders for culture to be done and UDS, pt to wear maternal support belt, on pelvic rest, call office for appt GREGORIO,may take extra strength tylenol for pain as needed discharged home, Maternal Triage Index - Maternal Triage Index Presenting for scheduled procedure w/no complaint: No - Stat/Priority 1 Stat Priority 1: No - Urgent/Priority 2 Urgent Priority 2: No - Prompt/Priority 3 Prompt Priority 3: No - Non-Urgent/Priority 4 Non-Urgent Priority 4: Yes Criteria Met for Priority 4: constant left groin pain, pt GA 25 weeks Disposition - Disposition OB Disposition: Triage, Discharge to home, Written follow up instructions reviewed Discharge Date: 02/20/21 Discharge Time: 11:40 I agree with the RN Medical Screening Exam: Yes Case reviewed; plan agreed upon as documented in EMR&OBIX.: Yes Comments: Patient was neither seen nor examined by me Diagnosis: PAIN, UNSPECIFIED
== END 2021-02-20 11:40 | disposition home or self-care (01) ==
LOC: FBPOP 10:34
PROVIDERS: ATTEND Obstetrics & Gynecology
DX: O26.892 Other specified pregnancy related conditions, second trimester (principal); O99.332 Smoking (tobacco) complicating pregnancy, second trimester; R10.30 Lower abdominal pain, unspecified; F17.200 Nicotine dependence, unspecified, uncomplicated; Z3A.25 25 weeks gestation of pregnancy; Z88.0 Allergy status to penicillin; Z91.018 Allergy to other foods; Z91.030 Bee allergy status; Z91.048 Other nonmedicinal substance allergy status
CPT/HCPCS: 81001; 80306; 87086; G0463; 99213

== ENCOUNTER 2021-05-24 03:18 | Emergency (ER) | payer OTHER ==
[2021-05-24 03:24] VITALS: BP 130/74; RESP 26; TEMP 98.4
--- NOTE | 2021-05-24 03:45 | ED ---
URI HPI - General Chief Complaint: Upper Respiratory Infection Stated Complaint: Cough, 38 weeks Time Seen by Provider: 05/24/21 03:28 Source: patient, RN notes reviewed, old records reviewed Mode of arrival: ambulatory Limitations: no limitations - History of Present Illness Initial Comments: This is a 38 week female 31 years old presented today for evaluation of cough especially shortness of breath. She feels that she has difficulty catching her breath. Patient has no recent travel history or sick contacts no fevers this history of asthma complaining of cough and oriented MD Complaint: cough, sore throat -: days(s) Severity: mild Severity scale (1-10): 3 Quality: sharp Consistency: constant Improves With: nothing Worsens With: nothing, activity Associated Symptoms: myalgias, nasal congestion, cough Treatments Prior to Arrival: none - Related Data Home Medications Medication Instructions Recorded Confirmed Albuterol Inhaler [Ventolin Hfa 2 puff INHALATION RT-QID PRN 06/09/20 02/20/21 Inhaler] Pnv No.95/Ferrous Fum/Folic AC 1 each PO DAILY 02/20/21 02/20/21 [ Multivitamin Tablet] Allergies Allergy/AdvReac Type Severity Reaction Status Date / Time Penicillins Allergy Rash/Hives Verified 05/24/21 03:23 pollen extracts Allergy Unknown Verified 05/24/21 03:23 tomato Allergy Unknown Verified 05/24/21 03:23 venom-honey bee Allergy Unknown Verified 05/24/21 03:23 [bee venom (honey bee)] Review of Systems ROS Statement: Those systems with pertinent positive or pertinent negative responses have been documented in the HPI. ROS Other: All systems not noted in ROS Statement are negative. Past Medical History Past Medical History: Asthma, Musculoskeletal Disorder Additional Past Medical History / Comment(s): ovarian cyst, back pain History of Any Multi-Drug Resistant Organisms: None Reported Past Surgical History: Section Additional Past Surgical History / Comment(s): cysts removed from ovaries, pain procedures Past Anesthesia/Blood Transfusion Reactions: No Reported Reaction Past Psychological History: Anxiety, Bipolar Smoking Status: Current some day smoker Past Alcohol Use History: None Reported Past Drug Use History: None Reported - Past Family History Mother Family Medical History: No Reported History Additional Family Medical History / Comment(s): no hx of family medical problems General Exam Limitations: no limitations General appearance: alert, in no apparent distress, anxious Head exam: Present: atraumatic, normocephalic, normal inspection Eye exam: Present: normal appearance, PERRL, EOMI. Absent: scleral icterus, conjunctival injection, periorbital swelling ENT exam: Present: normal exam, mucous membranes moist Neck exam: Present: normal inspection. Absent: tenderness, meningismus, lymphadenopathy Respiratory exam: Present: wheezes. Absent: respiratory distress, rales, rhonchi, stridor Cardiovascular Exam: Present: regular rate, normal rhythm, normal heart sounds. Absent: systolic murmur, diastolic murmur, rubs, gallop, clicks GI/Abdominal exam: Present: soft, normal bowel sounds. Absent: distended, tenderness, guarding, rebound, rigid Extremities exam: Present: normal inspection, full ROM, normal capillary refill. Absent: tenderness, pedal edema, joint swelling, calf tenderness Back exam: Present: normal inspection Neurological exam: Present: alert, oriented X3, CN II-XII intact Psychiatric exam: Present: normal affect, normal mood Skin exam: Present: warm, dry, intact, normal color. Absent: rash Course Vital Signs 05/24/21 05/24/21 05/24/21 03:19 05:17 05:29 Temperature 98.4 F Pulse Rate 105 H 102 H 102 H Respiratory 26 H Rate Blood Pressure 130/74 O2 Sat by Pulse 99 Oximetry - Reevaluation(s) Reevaluation #1: Medical record is reviewed Patient is in no acute distress has no complaints Patient informed results and questions answered Medical Decision Making - Medical Decision Making 31 female to the ER for evaluation today. Patient comes in with cough and runny nose and congestion is concerned for coronavirus no fever. Negative testing here in the ER patient can be discharged home - Lab Data Lab Results 05/24/21 05/24/21 Range/Units 04:17 04:17 Urine Color Yellow Urine Appearance Clear (Clear) Urine pH 6.0 (5.0-8.0) Ur Specific Patterson 1.019 (1.001-1.035) Urine Protein Trace H (Negative) Urine Glucose (UA) Negative (Negative) Urine Ketones Negative (Negative) Urine Blood Negative (Negative) Urine Nitrite Negative (Negative) Urine Bilirubin Negative (Negative) Urine Urobilinogen 2.0 (<2.0) mg/dL Ur Leukocyte Esterase Moderate H (Negative) Urine RBC 2 (0-5) /hpf Urine WBC 4 (0-5) /hpf Ur Squamous Epith Cells 3 (0-4) /hpf Urine Mucus Few H (None) /hpf Coronavirus (PCR) Not Detected (Not Detectd) - Radiology Data Radiology results: report reviewed (Asked x-rays negative for acute disease), image reviewed Disposition Clinical Impression: Acute upper respiratory infection Disposition: HOME SELF-CARE Condition: Good Instructions (If sedation given, give patient instructions): Upper Respiratory Infection (ED) Is patient prescribed a controlled substance at d/c from ED?: No Referrals: Macho Ji MD [Primary Care Provider] - 1-2 days
--- NOTE | 2021-05-24 04:21 | XR ---
EXAMINATION TYPE: XR chest 1V portable DATE OF EXAM: 05/24/2021 COMPARISON: 09/27/2020 HISTORY: Cough TECHNIQUE: FINDINGS: Heart and mediastinum are normal. Lungs are clear. Diaphragm is normal. Bony thorax is inta ct. IMPRESSION: Normal chest. No change.
[2021-05-24] MEDS ORDERED: IPRATROPIUM-ALBUTEROL 3 ML NEB INHALATION STA (04:54)
[2021-05-24 04:59] LABS: Appearance,Urine Clear (Clear); Bilirubin,Urine Negative (Negative); Blood,Urine Negative (Negative); Color,Urine Yellow; Glucose,Urine (UA) Negative (Negative); Ketones,Urine Negative (Negative); Leukocyte Esterase,Urine Moderate (Negative); Mucus,Urine Few /hpf; Nitrite,Urine Negative (Negative); Protein,Urine Trace (Negative); RBC,Urine 2 /hpf (0-5); Specific Gravity,Urine 1.019 (1.001-1.035); Squamous Epithelial Cell,Urine 3 /hpf (0-4); WBC,Urine 4 /hpf (0-5)
[2021-05-24 05:18] VITALS: PULSE 102
== END 2021-05-24 05:50 | disposition home or self-care (01) ==
LOC: EC 03:18
DX: O23.43 Unspecified infection of urinary tract in pregnancy, third trimester (principal); J06.9 Acute upper respiratory infection, unspecified; J45.909 Unspecified asthma, uncomplicated; F41.9 Anxiety disorder, unspecified; F31.9 Bipolar disorder, unspecified; F17.200 Nicotine dependence, unspecified, uncomplicated; Z3A.38 38 weeks gestation of pregnancy
CPT/HCPCS: 71045; 81001; 87635; 94640; 99285

== ENCOUNTER → 2021-07-09 | Outpatient (CLI) | payer OTHER ==
[2021-07-09 14:23] VITALS: BP 134/80; PULSE 77; RESP 18; TEMP 97.8
--- NOTE | 2021-07-09 14:42 | P.PN ---
Subjective Progress Note Date: 07/09/21 Principal diagnosis: A 31 yr old female with a history of severe and chronic low back pain secondary to lumbar degenerative disc diseases and lumbar spondylosis with facet arthropathy presents today for evaluation status post L TFESI of the L5-S1. Patient experiencing her pain relief with the procedure. Pain level is still at 8 out of 10 in intensity, left of midline in the lower lumbar spine, stabbing in character towards the left hip and in her groin. Pain is provoked by standing for 30 minutes or more or lifting. Pain is alleviated with medications, topicals, injections, ice, heat, physical therapy last month, stretching regimen, Epsom salts baths and rest. He also admits to neck pain, stiffness, and pain with movement of the cervical spine. Interventional pain procedures Tylenol OTC Patient is currently on left TFESI of the L5-S1 Patient denies any side effects of the medication(s), denies excessive drowsiness or sleepiness, denies suicidal ideation and reports that the current pain medication is helping to control the pain and improve activities of daily living. Patient denies any motor or sensory deficits. Patient denies any fever or night sweats, denies any change in the bowel movements or urination. Physical Examination: -Constitutional: Cooperative. Not in acute distress . -HEENT: Neck is supple. No lymphadenopathy. No thyromegaly. Normal thyroid size. Eyes: No ptosis , no icterus, no photophobia. ENT: No auditory deficits. Normal oropharynx. No Thrush. - Respiratory: Chest clear to auscultations bilaterally. No wheezing. No rhonchi. - Cardiovascular: Regular rate and rhythm. S1 / S2 , no S3 , no S4. - Gastrointestinal: Abdomen soft no tenderness. Bowel sounds positive in all four quadrants. No organomegaly. - Genitourinary: Deferred. - Neurologic: Cranial nerve II to XII intact. No focal neurological deficits. - Psychatric: Alert & oriented x 3. Matching mood & appropriate affect. Judgment and insight intact. - Lymphatic: No Lymphadenopathy. - Musculoskeletal: Cervical spine: Muscle bulk/ tone/ strength in the bilateral upper extremities normal. Facet loading test cervical area positive. Lumbar spine: Motor bulk/ tone/ strength lower extremities , thigh and legs : 5/5 Deep tendon reflexes : Normal Knee Jerk. Normal Ankle Jerk . Vertebral body tenderness to palpation over Lumbar Facet Loading Test positive over the left L5-S1 with jump reflex and surrounding edema Straight Leg Raise: positive at 30 degrees right side/ left side Gaenslen's Test postive Sacral spine : Severe tenderness over the Sacroiliac joint: right side / left side Range of motion: Flexion of the lumbar spine <60 degrees Range of motion: Extension of the lumbar spine <20 degrees Gaenslen's Test positive Anyi test: positive right side / left side Assessment and plan: Chronic low back pain secondary to lumbar degenerative disc disease , lumbar spondylosis with facet arthropathy without myelopathy Recommendation of facet block the medial branch of the left L5 to S1 May need repeat procedures for sufficient pain relief until RFA Risks, benefits of procedure discussed and patient verbalizes understanding MRI of the cervical spine without contrast ordered All patient questions answered MAPS reviewed and it was appropriate. I have spent 31 minutes on patient care today. Dr Sesay was available by phone for the evaluation of this patient. The time was used to review the medical records including relevant urine studies and Prescription history (MAPs), review of the available imaging, evaluation and examination of the patient, coordination of care with the medical staff and if applicable referring physicians, as well as creation of the medical record Objective - Vital Signs Vital signs: Vital Signs Temp 97.8 F 07/09/21 14:17 Pulse 77 07/09/21 14:17 Resp 18 07/09/21 14:17 BP 134/80 07/09/21 14:17 Pulse Ox 98 07/09/21 14:17 PQRS Measure Charge Sheet Mode of Arrival: Ambulatory - Pain Location Lower Back Non-Pharmacological Interventions: Heat, Home Exercise, Ice, Inactivity, Physical Therapy, Position/Reposition, Relaxation Technique, Stretching Pharmacological Interventions: Epidural PQRS Narrative: Smoking Status Current every day smoker Blood Pressure 134/80 Pain Intensity [Lower Back] 8 Hx Alcohol Use (MH) No Home Medications: Ambulatory Orders Albuterol Inhaler [Ventolin Hfa Inhaler] 2 puff INHALATION RT-QID PRN 06/09/20
== END ==
LOC: PNWHC3 13:26
PROVIDERS: ATTEND Physician Assistant Medical
DX: M51.36 Other intervertebral disc degeneration, lumbar region (principal); M47.816 Spondylosis without myelopathy or radiculopathy, lumbar region; G89.29 Other chronic pain; F17.200 Nicotine dependence, unspecified, uncomplicated; Z88.0 Allergy status to penicillin; Z91.09 Other allergy status, other than to drugs and biological substances; Z91.018 Allergy to other foods; Z91.030 Bee allergy status
CPT/HCPCS: 99211

== ENCOUNTER → 2021-08-02 | Outpatient (CLI) | payer OTHER ==
[~2021-08-02] MED LIST changes: -DEXAMETHASONE SOD PHOSPHATE 4 MG/ML 1 ML VIAL IV ONE; -HYDROmorphone 0.5 MG/0.5 ML SYRINGE IVP PRN; +KETOROLAC 30 MG/ML 1 ML VIAL IM ONE; -LACTATED RINGERS 1,000 ML IV SCH; -LIDOCAINE 1% (10MG/ML) FOR IV START INTRADERMA PRN; -MIDAZOLAM 2 MG/2 ML VIAL IV PRN; -ONDANSETRON 4 MG/2 ML VIAL IVP ONE
--- NOTE | 2021-08-02 10:16 | P.PN ---
Subjective Progress Note Date: 08/02/21 Principal diagnosis: A 31 yr old female with a history of severe and chronic low back pain secondary to lumbar degenerative disc diseases and lumbar spondylosis with facet arthropathy presents today for intractable lower back and bilateral hip pain. Patient states pain waxes and wanes throughout the day but is currently at 9 out of 10 in intensity, dull, achy, throbbing in the lower lumbar spine with radiation of pain to the bilateral hips and a sharp, shooting character. Pain is provoked by sitting, bending, lifting, twisting or any activities. Pain is alleviated with medications, topicals, physical therapy for 3 months in 2019 for her lumbar spine, home stretching regimen, massage, repositioning and rest. Patient is currently on ibuprofen 800 mg, baclofen. Patient denies any side effects of the medication(s), denies excessive drowsiness or sleepiness, denies suicidal ideation and reports that the current pain medication is helping to control the pain and improve activities of daily living. Patient denies any motor or sensory deficits. Patient denies any fever or night sweats, denies any change in the bowel movements or urination. Physical Examination: -Constitutional: Cooperative. Not in acute distress . -HEENT: Neck is supple. No lymphadenopathy. No thyromegaly. Normal thyroid size. Eyes: No ptosis , no icterus, no photophobia. ENT: No auditory deficits. Normal oropharynx. No Thrush. - Respiratory: Chest clear to auscultations bilaterally. No wheezing. No rhonchi. - Cardiovascular: Regular rate and rhythm. S1 / S2 , no S3 , no S4. - Gastrointestinal: Abdomen soft no tenderness. Bowel sounds positive in all four quadrants. No organomegaly. - Genitourinary: Deferred. - Neurologic: Cranial nerve II to XII intact. No focal neurological deficits. - Psychatric: Alert & oriented x 3. Matching mood & appropriate affect. Judgment and insight intact. - Lymphatic: No Lymphadenopathy. - Musculoskeletal: Cervical spine: Muscle bulk/ tone/ strength in the bilateral upper extremities n ormal. Facet loading test cervical area positive. Lumbar spine: Motor bulk/ tone/ strength lower extremities , thigh and legs : 5/5 Deep tendon reflexes : Normal Knee Jerk. Normal Ankle Jerk . Vertebral body tenderness to palpation over Lumbar Facet Loading Test positive over L5-S1 bilaterally. +Muscle spasms. +Tenderness to palpation over the paraspinal muscles Straight Leg Raise: positive at 30 degrees right side/ left side Gaenslen's Test positive Sacral spine : Severe tenderness over the Sacroiliac joint: right side / left side Range of motion: Flexion of the lumbar spine <60 degrees Range of motion: Extension of the lumbar spine <20 degrees Gaenslen's Test positive Anyi test: positive right side / left side Assessment and plan: Chronic low back pain secondary to lumbar degenerative disc disease , lumbar spondylosis with facet arthropathy without myelopathy Patient would benefit from a series of injections of the facet blocks of the medial branches, up through RFA if indicated. In the meantime. Patient will benefit from Toradol 60 mg/2 mL IM 1 All patient questions answered MAPS reviewed and it was appropriate. I have spent 31 minutes on patient care today. Dr Sesay was available by phone for the evaluation of this patient. The time was used to review the medical records including relevant urine studies and Prescription history (MAPs), review of the available imaging, evaluation and examination of the patient, coordination of care with the medical staff and if applicable referring physicians, as well as creation of the medical record PQRS Measure Charge Sheet PQRS Narrative: Smoking Status Current every day smoker Hx Alcohol Use (MH) No Home Medications: Ambulatory Orders Albuterol Inhaler [Ventolin Hfa Inhaler] 2 puff INHALATION RT-QID PRN 06/09/20
[2021-08-02 14:42] VITALS: BP 120/80; PULSE 104; RESP 18; TEMP 98.6
== END ==
LOC: PNWHC3 09:27
PROVIDERS: ATTEND Physician Assistant Medical
DX: M51.36 Other intervertebral disc degeneration, lumbar region (principal); M47.816 Spondylosis without myelopathy or radiculopathy, lumbar region; G89.29 Other chronic pain; F17.200 Nicotine dependence, unspecified, uncomplicated; Z88.0 Allergy status to penicillin; Z91.030 Bee allergy status; Z91.018 Allergy to other foods; Z91.09 Other allergy status, other than to drugs and biological substances
CPT/HCPCS: 99211

== ENCOUNTER 2021-09-04 11:15 | Day surgery (SDC) | payer OTHER ==
[2021-09-03 11:59] VITALS: BMI 28.3
[~2021-09-04 11:15] MED LIST changes: +IV FLUID CONTINUATION 700 ML IV ONE; -KETOROLAC 30 MG/ML 1 ML VIAL IM ONE
[2021-09-04] MEDS: LACTATED RINGERS 1,000 ML IV SCH ×2 (11:41→11:55)
[2021-09-04 11:47] VITALS: TEMP 98.2
[2021-09-04] MEDS ORDERED: ROPIVACAINE 5MG/ML 20ML VIAL ONE (12:10)
[2021-09-04] MEDS ORDERED: MIDAZOLAM 2 MG/2 ML VIAL ONE (12:10)
--- NOTE | 2021-09-04 12:23 | P.PCN ---
Date of Procedure: 09/04/21 Description of Procedure: Procedure: Left L5-S1 Diagnosis: Lumbar spondylosis without myelopathy Anesthesia: Local and 2 mg of Versed Imaging: Fluoroscopy was used, images where saved to the medical record The patient was seen and examined in the [facility]. Procedure risks and benefits were fully reviewed with the patient. The patient understands this is a diagnostic if local only is used, as will be the case today. The goal of the procedure is to inject medication onto the medial branch or small nerves that innervate the facet joints. In this way, we can hopefully identify which of these joints, if any, may be contributing to their pain. Informed consent for procedure was obtained. The patient was taken into the office fluoroscopy procedure room and placed prone on the table. A pillow was placed under the abdomen to reduce lumbar lordosis. Vital signs were closely monitored during the procedure. The skin over the area was prepped with Betadine X 3 and draped in usual sterile manner. Sterile technique was observed throughout procedure. Under biplanar fluoroscopic guidance, the target injection area of the L5 and sacral dahlia A 25 gauge 31/2 inch spinal needle was then placed at the most medial and superior aspect of the transverse process near the "eye of the Ramsey dog". Aspiration for blood was negative. 1 cc of 0.5% Ropivacaine was injected into the targeted areas separately. Smock were withdrawn intact. No complications were noted during the procedure. The patient tolerated the procedure well. The patient was placed in supine position and transferred to the recovery area for observation and remained stable until discharged home. Home discharge instructions were given to the patient by the staff. The patient will schedule a follow up as directed. It was explained to the patient that we will see her back in one to 2 weeks for further evaluation. If the pain gets better proven by pain diary we will repeat him potentially do radiofrequency ablation. She has an appointment with a spine surgeon on October 05. If she does not improve from this then she should be evaluated for spinal surgery secondary to significant L5-S1 degenerative disc disease. She has already failed epidural steroid injections.
[2021-09-04] MEDS ORDERED: LACTATED RINGERS 1,000 ML IV ONE (12:30)
[2021-09-04 12:33] VITALS: RESP 16
[2021-09-04 12:50] VITALS: BP 113/61; PULSE 74
--- NOTE | 2021-09-04 14:12 | FL ---
EXAMINATION TYPE: FL guided pain mgmt statistic DATE OF EXAM: 09/04/2021 HISTORY: Fluoroscopy time 3 seconds of fluoroscopy provided. IMPRESSION: 1. Fluoroscopy time.
== END 2021-09-04 13:06 | disposition home or self-care (01) ==
LOC: ORPAIN 11:15
PROVIDERS: ATTEND Hospitalist
DX: M47.816 Spondylosis without myelopathy or radiculopathy, lumbar region (principal)
CPT/HCPCS: 64493; 81025; J2250; J2795

== ENCOUNTER 2022-08-22 14:57 | Emergency (ER) | payer OTHER ==
[2022-08-22 15:05] VITALS: BP 118/80; PULSE 113; RESP 18; TEMP 98.5
[2022-08-22] MEDS ORDERED: ONDANSETRON 4 MG/2 ML VIAL IVP STA (15:48)
[2022-08-22] MEDS ORDERED: MORPHINE SULFATE 2 MG/ML SYRINGE IVP ONE (15:48)
[2022-08-22] MEDS ORDERED: DIPH,PERTUS(ACELL)TETVAC-LF 0.5 ML VIAL IM ONE (15:49)
--- NOTE | 2022-08-22 16:11 | ED ---
General Adult HPI - General Chief complaint: Extremity Injury, Upper Stated complaint: Right finger injury Time Seen by Provider: 08/22/22 15:41 Source: patient, RN notes reviewed Mode of arrival: ambulatory Limitations: no limitations - History of Present Illness Initial comments: 32-year-old female with no significant past medical history presents the emergency department with right second digit problem. Patient reports she was moving furniture numbness unsure how her finger got stuck between the TV stand. She reports worsening pain and injury to the proximal small area of her fingertip. She is unsure of when her last tetanus vaccination what she denies any numbness, tingling, weakness. She denies any injury proximal to the finger. - Related Data Home Medications Medication Instructions Recorded Confirmed Albuterol Inhaler [Ventolin Hfa 2 puff INHALATION RT-QID PRN 06/09/20 09/04/21 Inhaler] Baclofen 10 mg PO DAILY 09/04/21 09/04/21 Previous Rx's Medication Instructions Recorded Cephalexin [Keflex] 500 mg PO Q6HR #40 cap 08/22/22 Sulfamethox-Tmp 800-160Mg [Bactrim 1 each PO Q12HR #20 tab 08/22/22 Ds] Allergies Allergy/AdvReac Type Severity Reaction Status Date / Time Penicillins Allergy Rash/Hives Verified 08/22/22 15:05 pollen extracts Allergy Unknown Verified 08/22/22 15:05 tomato Allergy Unknown Verified 08/22/22 15:05 venom-honey bee Allergy Unknown Verified 08/22/22 15:05 [bee venom (honey bee)] Review of Systems ROS Statement: Those systems with pertinent positive or pertinent negative responses have been documented in the HPI. ROS Other: All systems not noted in ROS Statement are negative. Past Medical History Past Medical History: Asthma, Musculoskeletal Disorder Additional Past Medical History / Comment(s): Back pain, lumbar DDD. Recent migraines. History of Any Multi-Drug Resistant Organisms: None Reported Past Surgical History: Back Surgery, Section Additional Past Surgical History / Comment(s): Cysts removed from ovaries, pain procedures. Past Anesthesia/Blood Transfusion Reactions: No Reported Reaction Past Psychological History: Anxiety, Bipolar Smoking Status: Current every day smoker Past Alcohol Use History: None Reported Past Drug Use History: Marijuana - Past Family History Mother Family Medical History: Musculoskeletal Disorder Additional Family Medical History / Comment(s): Cervical disc problems. General Exam Limitations: no limitations General appearance: alert, in no apparent distress Head exam: Present: atraumatic, normocephalic, normal inspection Eye exam: Present: normal appearance, PERRL, EOMI. Absent: scleral icterus, conjunctival injection, periorbital swelling ENT exam: Present: normal exam, mucous membranes moist Neck exam: Present: normal inspection. Absent: tenderness, meningismus, lymphadenopathy Respiratory exam: Present: normal lung sounds bilaterally. Absent: respiratory distress, wheezes, rales, rhonchi, stridor Cardiovascular Exam: Present: regular rate, normal rhythm, normal heart sounds. Absent: systolic murmur, diastolic murmur, rubs, gallop, clicks GI/Abdominal exam: Present: soft, normal bowel sounds. Absent: distended, tenderness, guarding, rebound, rigid Extremities exam: Present: normal inspection, full ROM, normal capillary refill. Absent: tenderness, pedal edema, joint swelling, calf tenderness Right Hand L/R Back: 1 - complete nail removed from tip with active bleeding, and marked tenderness. Back exam: Present: normal inspection Neurological exam: Present: alert, oriented X3, CN II-XII intact Psychiatric exam: Present: normal affect, normal mood Skin exam: Present: warm, dry, intact, normal color. Absent: rash Course Vital Signs 08/22/22 15:03 Temperature 98.5 F Pulse Rate 113 H Respiratory 18 Rate Blood Pressure 118/80 O2 Sat by Pulse 98 Oximetry Medical Decision Making - Medical Decision Making Was pt. sent in by a medical professional or institution (, PA, LEAD ATHLETE, urgent care, hospital, or custodial...) When possible be specific @ -[No] Did you speak to anyone other than the patient for history (EMS, parent, family, police, friend...)? What history was obtained from this source @ -[No] Did you review nursing and triage notes (agree or disagree)? Why? @ -[I reviewed and agree with nursing and triage notes] Were old charts reviewed (outside hosp., previous admission, EMS record, old EKG, old radiological studies, urgent care reports/EKG's, custodial records)? Report findings @ -[No old charts were reviewed] Differential Diagnosis (chest pain, altered mental status, abdominal pain women, abdominal pain men, vaginal bleeding, weakness, fever, dyspnea, syncope, headache, dizziness, GI bleed, back pain, seizure, CVA, palpatations, mental health, musculoskeletal)? @ -[not applicable] EKG interpreted by me (3pts min.). @ -[As above] X-rays interpreted by me (1pt min.). @ -[None done] CT interpreted by me (1pt min.). @ -[None done] U/S interpreted by me (1pt. min.). @ -[None done] What testing was considered but not performed or refused? (CT, X-rays, U/S, labs )? Why? @ -[None] What meds were considered but not given or refused? Why? @ -[None] Did you discuss the management of the patient with other professionals (professionals i.e. , PA, LEAD ATHLETE, lab, RT, psych nurse, social security specialist, bench jeweler, teacher, security officers and guards, block and case maker)? Give summary @ -[No] Was smoking cessation discussed for >3mins.? @ -[No] Was critical care preformed (if so, how long)? @ -[No] Were there social determinants of health that impacted care today? How? (Homelessness, low income, unemployed, alcoholism, drug addiction, transportation, low edu. Level, literacy, decrease access to med. care, senior living, rehab)? @ -[No] Was there de-escalation of care discussed even if they declined (Discuss DNR or withdrawal of care, Hospice)? DNR status @ -[No] What co-morbidities impacted this encounter? (DM, HTN, Smoking, COPD, CAD, Cancer, CVA, ARF, Chemo, Hep., AIDS, mental health diagnosis, sleep apnea, morbid obesity)? @ -[None] Was patient admitted / discharged? Hospital course, mention meds given and route, prescriptions, significant lab abnormalities, going to OR and other pert inent info. @ -Discharged. This is a 32-year-old female with no significant past medical history presents the emergency department with a chief complaint of right finger problem. Patient was seen and evaluated had a thorough history and physical exam performed while in the ED. Right second digit with nail completely removed with some soft tissue removed as well as. Patient remains to be neurovascularly intact. She was given morphine, Zofran for pain. The wound was extensively irrigated. She was given a prescription for Keflex and Bactrim. She was instructed to follow up with Dr. Carrasco, hand specialist within 1-2 days. Undiagnosed new problem with uncertain prognosis? @ -[No] Drug Therapy requiring intensive monitoring for toxicity (Heparin, Nitro, Insulin, Cardizem)? @ -[No] Were any procedures done? @ -[No] Diagnosis/symptom? @ -open tuft fracture of 2nd digit of right hand Acute, or Chronic, or Acute on Chronic? @ -acute Uncomplicated (without systemic symptoms) or Complicated (systemic symptoms)? @ -complicated Side effects of treatment? @ -[No] Exacerbation, Progression, or Severe Exacerbation? @ -[No] Poses a threat to life or bodily function? How? (Chest pain, [place], [place], pneumonia, PE, COPD, DKA, ARF, appy, cholecystitis, CVA, Diverticulitis, Homicidal, Suicidal, threat to staff... 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
--- NOTE | 2022-08-22 16:37 | XR ---
EXAMINATION TYPE: XR hand complete RT DATE OF EXAM: 08/22/2022 CLINICAL HISTORY: Pain after injury. TECHNIQUE: Frontal, lateral and oblique images of the right hand are obtained. COMPARISON: None. FINDINGS: There is soft tissue defect through the distal aspect of the second distal phalanx with ubaldo e bony fragmentation along the distal tip consistent with acute open fracture deformity given patient history. Remainder of right hand is unremarkable. IMPRESSION: As above.
[2022-08-22] MEDS ORDERED: LIDOCAINE 1% INJ 10MG/ML (30 ML VIAL-PF) SQ ONE (16:59)
[2022-08-22] MEDS ORDERED: TRANEXAMIC ACID 1,000 MG/10 ML VIAL IRRIGATION ONE (17:30)
== END 2022-08-22 17:45 | disposition home or self-care (01) ==
LOC: EC 14:57
DX: S62.630K Displaced fracture of distal phalanx of right index finger, subsequent encounter for fracture with nonunion (principal); J45.909 Unspecified asthma, uncomplicated; F12.90 Cannabis use, unspecified, uncomplicated; F17.200 Nicotine dependence, unspecified, uncomplicated; Z23 Encounter for immunization; Z79.899 Other long term (current) drug therapy; Z88.0 Allergy status to penicillin; Z91.018 Allergy to other foods; Z91.030 Bee allergy status; W23.0XXD Caught, crushed, jammed, or pinched between moving objects, subsequent encounter
CPT/HCPCS: 73130; 90715; 99283; 90471; 96374; 96375; J2405; J2001; J2270

== ENCOUNTER 2022-12-08 17:24 | Emergency (ER) | payer OTHER ==
[2022-12-08 17:38] VITALS: RESP 20
[2022-12-08] MEDS ORDERED: KETOROLAC 15 MG/ML 1 ML VIAL IM STA (18:11)
--- NOTE | 2022-12-08 18:12 | ED ---
Upper Extremity HPI - General Chief Complaint: Extremity Injury, Upper Stated Complaint: R Shoulder Dislocated Source: patient, RN notes reviewed, old records reviewed Mode of arrival: ambulatory Limitations: no limitations - History of Present Illness Initial Comments: This is a 30-year-old female to the ER today she presents for evaluation of right shoulder pain no history of significant trauma. Patient has complaints of feels like her shoulder was dislocated and although it does feel like it's moving appropriately now. Patient states the pain is severe. Patient's symp toms began while helping her father work on her car today. Patient states she does have pain in the right shoulder with no chest pain or shortness of breath. No significant trauma is noted and patient does have ability to move shoulder now but the pain has worsened despite Motrin at home. Complaint: Injury to:: right, shoulder -: hour(s) Other Extremity Injury: Shoulder: Right Other Injuries: none Handedness: right Place: work Severity scale (1-10): 8 Improves With: none Worsens With: none Context: sports-related injury Associated Symptoms: denies other symptoms Treatments Prior to Arrival: cold therapy, NSAIDS - Related Data Home Medications Medication Instructions Recorded Confirmed Albuterol Inhaler [Ventolin Hfa 2 puff INHALATION RT-QID PRN 06/09/20 09/04/21 Inhaler] Baclofen 10 mg PO DAILY 09/04/21 09/04/21 Previous Rx's Medication Instructions Recorded Cephalexin [Keflex] 500 mg PO Q6HR #40 cap 08/22/22 Sulfamethox-Tmp 800-160Mg [Bactrim 1 each PO Q12HR #20 tab 08/22/22 Ds] Allergies Allergy/AdvReac Type Severity Reaction Status Date / Time Penicillins Allergy Rash/Hives Verified 12/08/22 17:38 pollen extracts Allergy Unknown Verified 12/08/22 17:38 tomato Allergy Unknown Verified 12/08/22 17:38 venom-honey bee Allergy Unknown Verified 12/08/22 17:38 [bee venom (honey bee)] Review of Systems ROS Statement: Those systems with pertinent positive or pertinent negative responses have been documented in the HPI. ROS Other: All systems not noted in ROS Statement are negative. Past Medical History Past Medical History: Asthma, Musculoskeletal Disorder Additional Past Medical History / Comment(s): Back pain, lumbar DDD. Recent migraines. History of Any Multi-Drug Resistant Organisms: None Reported Past Surgical History: Back Surgery, Section Additional Past Surgical History / Comment(s): Cysts removed from ovaries, pain procedures. Past Anesthesia/Blood Transfusion Reactions: No Reported Reaction Past Psychological History: Anxiety, Bipolar Smoking Status: Current every day smoker Past Alcohol Use History: None Reported Past Drug Use History: Marijuana - Past Family History Mother Family Medical History: Musculoskeletal Disorder Additional Family Medical History / Comment(s): Cervical disc problems. General Exam Limitations: no limitations General appearance: alert, in no apparent distress Head exam: Present: atraumatic, normocephalic, normal inspection Eye exam: Present: normal appearance, PERRL, EOMI. Absent: scleral icterus, conjunctival injection, periorbital swelling ENT exam: Present: normal exam, mucous membranes moist Neck exam: Present: normal inspection. Absent: tenderness, meningismus, lymphadenopathy Respiratory exam: Present: normal lung sounds bilaterally. Absent: respiratory distress, wheezes, rales, rhonchi, stridor Cardiovascular Exam: Present: regular rate, normal rhythm, normal heart sounds. Absent: systolic murmur, diastolic murmur, rubs, gallop, clicks GI/Abdominal exam: Present: soft, normal bowel sounds. Absent: distended, tenderness, guarding, rebound, rigid Extremities exam: Present: normal inspection, tenderness, normal capillary refill, other (Right shoulder pain with range of motion). Absent: full ROM, pedal edema, joint swelling, calf tenderness Back exam: Present: normal inspection Neurological exam: Present: alert, oriented X3, CN II-XII intact Psychiatric exam: Present: normal affect, normal mood Skin exam: Present: warm, dry, intact, normal color. Absent: rash Course Vital Signs 12/08/22 12/08/22 17:36 19:16 Temperature 98.5 F 97.4 F L Pulse Rate 97 86 Respiratory 20 20 Rate Blood Pressure 130/87 136/76 O2 Sat by Pulse 98 99 Oximetry - Reevaluation(s) Reevaluation #1: 12/08/22 20:55 Medical record is reviewed Reevaluation #2: 12/08/22 20:58 Patient symptoms are improved Reevaluation #3: 12/08/22 20:58 Patient informed results questions answered Reevaluation #4: 12/08/22 18:30 Was pt. sent in by a medical professional or institution? @ -no Did you speak to anyone other than the patient for history? @ -no Did you review nursing and triage notes? @ -agree Were old charts reviewed? @ -yes Differential Diagnosis? @ -prior EKG interpreted by me (3pts min.)? @ -no X-rays interpreted by me (1pt min.)? @ -yes CT interpreted by me (1pt min.)? @ -no U/S interpreted by me (1pt. min.)? @ -no What testing was considered but not performed? (CT, X-rays, U/S, labs)? Why? @ -no What meds were considered but not given? Why? @ -no Did you discuss the management of the patient with other professionals? @ -no Did you reconcile home meds? @ -no Was smoking cessation discussed for >3mins.? @ -no Was critical care preformed (if so, how long)? @ -no Were there social determinants of health that impacted care today? How? (Homelessness, low income, unemployed, alcoholism, drug addiction, transportation, low edu. Level, literacy, decrease access to med. care, nursing home, rehab)? @ -no Was there de-escalation of care discussed even if they declined? (Discuss DNR or withdrawal of care, Hospice)? @ -no What co-morbidities impacted this encounter? (DM, HTN, Smoking, COPD, CAD, Cancer, CVA, Hep., AIDS, mental health diagnosis, sleep apnea, morbid obesity)? @ -none Was patient admitted / discharged? @ -32 female to the emergency department for evaluation patient presents today for evaluation of severe right shoulder pain resolved here in the ER. Symptoms are improved x-ray is negative and patient can be discharged home Discharge Undiagnosed new problem with uncertain prognosis? @ -no Drug Therapy requiring intensive monitoring for toxicity (Heparin, Nitro, Insulin, Cardizem)? @ -no Were any procedures done? @ -no Diagnosis/symptom? @ -Right shoulder strain Acute, or Chronic, or Acute on Chronic? @ -acute Uncomplicated (without systemic symptoms) or Complicated (systemic symptoms)? @ -complicated Side effects of treatment? @ -no Exacerbation, Progression, or Severe Exacerbation] @ -no Poses a threat to life or bodily function? @ -no Medical Decision Making - Medical Decision Making 32 female to the emergency department for evaluation patient presents today for evaluation of severe right shoulder pain resolved here in the ER. Symptoms are improved x-ray is negative and patient can be discharged home - Radiology Data Radiology results: report reviewed (X-ray right shoulder is negative for acute disease), image reviewed Disposition Clinical Impression: Strain of shoulder Disposition: HOME SELF-CARE Condition: Good Instructions (If sedation given, give patient instructions): Shoulder Sprain (ED) Is patient prescribed a controlled substance at d/c from ED?: No Referrals: Macho Ji MD [Primary Care Provider] - 1-2 days Time of Disposition: 19:00
--- NOTE | 2022-12-08 18:38 | XR ---
EXAMINATION TYPE: XR shoulder complete RT DATE OF EXAM: 12/08/2022 6:27 PM INDICATION: Patient age:Female; 32 years old; Reason for study: pain; COMPARISON: None TECHNIQUE: The right shoulder was examined in AP, internally rotated and scapular Y projections. FINDINGS: No evidence of acute osseous pathology, joint dislocation, or soft tissue swelling. The remaining por tions of the visualized chest are unremarkable. IMPRESSION: No acute osseous pathology.
[2022-12-08 19:18] VITALS: BP 136/76; PULSE 86; TEMP 97.4
== END 2022-12-08 19:32 | disposition home or self-care (01) ==
LOC: EC 17:24
DX: S46.911A Strain of unspecified muscle, fascia and tendon at shoulder and upper arm level, right arm, initial encounter (principal); J45.909 Unspecified asthma, uncomplicated; F12.90 Cannabis use, unspecified, uncomplicated; F17.200 Nicotine dependence, unspecified, uncomplicated; Z86.59 Personal history of other mental and behavioral disorders; Z88.0 Allergy status to penicillin; Z91.030 Bee allergy status; Z91.018 Allergy to other foods; Z79.899 Other long term (current) drug therapy; X58.XXXA Exposure to other specified factors, initial encounter
CPT/HCPCS: 73030; 99283; 96372; J1885

== ENCOUNTER 2023-05-11 16:56 | Emergency (ER) | payer OTHER ==
--- NOTE | 2023-05-11 17:35 | ED ---
Extremity Problem HPI - General Chief complaint: Extremity Problem,Nontraumatic Stated complaint: Lt shoulder pain Time Seen by Provider: 05/11/23 17:06 Source: patient, RN notes reviewed Mode of arrival: ambulatory Limitations: no limitations - History of Present Illness Initial comments: 33-year-old female presents emergency Department chief complaint left shoulder pain. She states that she awoke with this discomfort. She states she is no pain at rest, worse with movement. She states that it's around her shoulder leg, into her left shoulder joint. She states she's had issues with her right some redness she states feels like it's dislocated. She denies any falls no trauma no history of seizures. Denies chest pain shortness breath no fevers or chills. - Related Data Home Medications Medication Instructions Recorded Confirmed Albuterol Inhaler [Ventolin Hfa 2 puff INHALATION RT-QID PRN 06/09/20 09/04/21 Inhaler] Baclofen 10 mg PO DAILY 09/04/21 09/04/21 Previous Rx's Medication Instructions Recorded Cephalexin [Keflex] 500 mg PO Q6HR #40 cap 08/22/22 Sulfamethox-Tmp 800-160Mg [Bactrim 1 each PO Q12HR #20 tab 08/22/22 Ds] Allergies Allergy/AdvReac Type Severity Reaction Status Date / Time Penicillins Allergy Rash/Hives Verified 05/11/23 17:04 pollen extracts Allergy Unknown Verified 05/11/23 17:04 tomato Allergy Unknown Verified 05/11/23 17:04 venom-honey bee Allergy Unknown Verified 05/11/23 17:04 [bee venom (honey bee)] Review of Systems ROS Statement: Those systems with pertinent positive or pertinent negative responses have been documented in the HPI. ROS Other: All systems not noted in ROS Statement are negative. Past Medical History Past Medical History: Asthma, Musculoskeletal Disorder Additional Past Medical History / Comment(s): Back pain, lumbar DDD. Recent migraines. History of Any Multi-Drug Resistant Organisms: None Reported Past Surgical History: Back Surgery, Section Additional Past Surgical History / Comment(s): Cysts removed from ovaries, pain procedures. Past Anesthesia/Blood Transfusion Reactions: No Reported Reaction Past Psychological History: Anxiety, Bipolar Smoking Status: Current every day smoker Past Alcohol Use History: None Reported Past Drug Use History: Marijuana - Past Family History Mother Family Medical History: Musculoskeletal Disorder Additional Family Medical History / Comment(s): Cervical disc problems. General Exam Limitations: no limitations General appearance: alert, in no apparent distress Head exam: Present: atraumatic, normocephalic, normal inspection Eye exam: Present: normal appearance, PERRL, EOMI. Absent: scleral icterus, conjunctival injection, periorbital swelling ENT exam: Present: normal exam, mucous membranes moist Neck exam: Present: normal inspection, tenderness (Left trapezius, scapular), full ROM. Absent: meningismus, lymphadenopathy Respiratory exam: Present: normal lung sounds bilaterally. Absent: respiratory distress, wheezes, rales, rhonchi, stridor Cardiovascular Exam: Present: regular rate, normal rhythm, normal heart sounds. Absent: systolic murmur, diastolic murmur, rubs, gallop, clicks Extremities exam: Present: other (Limited range of motion left shoulder, neurovascular intact there is mild tenderness along the scapular border, trapezius) Course Vital Signs 05/11/23 05/11/23 17:03 18:45 Temperature 98.3 F 98.4 F Pulse Rate 104 H 53 L Respiratory 20 18 Rate Blood Pressure 135/84 111/72 O2 Sat by Pulse 99 99 Oximetry Medical Decision Making - Medical Decision Making Was pt. sent in by a medical professional or institution ([facility], [facility] [facility], urgent care, hospital, or assisted...) When possible be specific @ -No Did you speak to anyone other than the patient for history (EMS, parent, family, police, friend...)? What history was obtained from this source @ -No Did you review nursing and triage notes (agree or disagree)? Why? @ -I reviewed and agree with nursing and triage notes Were old charts reviewed (outside hosp., previous admission, EMS record, old EKG, old radiological studies, urgent care reports/EKG's, assisted records)? Report findings @ -No old charts were reviewed Differential Diagnosis (chest pain, altered mental status, abdominal pain women, abdominal pain men, vaginal bleeding, weakness, fever, dyspnea, syncope, headache, dizziness, GI bleed, back pain, seizure, CVA, palpatations, mental health, musculoskeletal)? @ -Shoulder dislocation, shoulder sprain, muscle spasms EKG interpreted by me (3pts min.). @ -None X-rays interpreted by me (1pt min.). @ -X-ray left shoulder shows no acute process done CT interpreted by me (1pt min.). @ -None done U/S interpreted by me (1pt. min.). @ -None done What testing was considered but not performed or refused? (CT, X-rays, U/S, labs)? Why? @ -None What meds were considered but not given or refused? Why? @ -None Did you discuss the management of the patient with other professionals (professionals i.e. , PA, [employer], lab, RT, psych nurse, mental health social worker, associate professor of library science, teacher, school services officer, manager case management)? Give summary @ -No Was smoking cessation discussed for >3mins.? @ -No Was critical care preformed (if so, how long)? @ -No Were there social determinants of health that impacted care today? How? (Homelessness, low income, unemployed, alcoholism, drug addiction, transportation, low edu. Level, literacy, decrease access to med. care, skilled nursing, rehab)? @ -No Was there de-escalation of care discussed even if they declined (Discuss DNR or withdrawal of care, Hospice)? DNR status @ -No What co-morbidities impacted this encounter? (DM, HTN, Smoking, COPD, CAD, Cancer, CVA, ARF, Chemo, Hep., AIDS, mental health diagnosis, sleep apnea, morbid obesity)? @ -None Was patient admitted / discharged? Hospital course, mention meds given and route, prescriptions, significant lab abnormalities, going to OR and other pertinent info. @ -Discharged patient's pain may related tenderness, sprain she states it starts with movement. Patient is urgency of condition follow-up with her PCP return parameters were discussed. Undiagnosed new problem with uncertain prognosis? @ -No Drug Therapy requiring intensive monitoring for toxicity (Heparin, Nitro, Insulin, Cardizem)? @ -No Were any procedures done? @ -No Diagnosis/symptom? @ -[Left shoulder pain Acute, or Chronic, or Acute on Chronic? @ -[Acute Uncomplicated (without systemic symptoms) or Complicated (systemic symptoms)? @ -uncomplicated Side effects of treatment? @ -No Exacerbation, Progression, or Severe Exacerbation? @ -No Poses a threat to life or bodily function? How? (Chest pain, [place], NH, pneumonia, PE, COPD, DKA, ARF, appy, cholecystitis, CVA, Diverticulitis, Homicidal, Suicidal, threat to staff... and all critical care pts) @ -No Disposition Clinical Impression: Left shoulder pain Disposition: HOME SELF-CARE Condition: Stable Instructions (If sedation given, give patient instructions): Shoulder Pain (ED) Additional Instructions: Please return to the Emergency Department if symptoms worsen or any other concerns. Is patient prescribed a controlled substance at d/c from ED?: No Referrals: Macho Ji MD [Primary Care Provider] - 1-2 days Time of Disposition: 18:06
--- NOTE | 2023-05-11 17:52 | XR ---
Left shoulder HISTORY: Pain COMPARISON: None TECHNIQUE: 3 views left shoulder were obtained. Findings: There is no fracture, dislocation, intraosseous or intra-articular abnormality. Soft tissues are unre markable. IMPRESSION: No significant abnormality seen.
[2023-05-11] MEDS ORDERED: ORPHENADRINE 30 MG/ML 2 ML VIAL IM STA (18:05)
[2023-05-11] MEDS ORDERED: KETOROLAC 15 MG/ML 1 ML VIAL IM STA (18:05)
[2023-05-11] MEDS ORDERED: ACET/COD 300 MG/30 MG STARTER PACK 6 TAB BTL PO STA (18:05)
[2023-05-11 19:03] VITALS: BP 111/72; PULSE 53; RESP 18; TEMP 98.4
== END 2023-05-11 18:46 | disposition home or self-care (01) ==
LOC: EC 16:56
DX: M25.512 Pain in left shoulder (principal); J45.909 Unspecified asthma, uncomplicated; F41.9 Anxiety disorder, unspecified; F31.9 Bipolar disorder, unspecified; F17.200 Nicotine dependence, unspecified, uncomplicated; F12.90 Cannabis use, unspecified, uncomplicated; Z88.0 Allergy status to penicillin; Z91.018 Allergy to other foods; Z91.030 Bee allergy status; Z88.8 Allergy status to other drugs, medicaments and biological substances; Z79.899 Other long term (current) drug therapy
CPT/HCPCS: 73030; 99283; 96372 ×2; J2360; J1885